=== PATIENT | female | born 1930 | race Caucasian/White ===

== ENCOUNTER 2017-04-12 18:15 | Inpatient (IN) ==
[2017-04-12 20:39] LABS: Basophils % 0.2 % (0.0-0.8); Eosinophils % 0.1 % (0.00-10.9); Hematocrit 24.5 VOL% (35.7-47.0); Hemoglobin 8.2 GM/DL (12.0-16.0); Immature Granulocytes % 1.2 %; Immature Granulocytes Absolute 0.11 #; Lymphocytes # 0.6 10*3/uL (1.4-4.0); Lymphocytes % 6.3 % (21.3-54.2); Mean Corpuscular HGB Conc 33.5 GM/DL (32-36); Mean Corpuscular Hemoglobin 32 PG (27-34); Mean Corpuscular Volume 95.3 FL (87-102); Mean Platelet Volume 10.8 FL (9.6-12.0); Monocytes # 0.5 10*3/uL (0.11-0.8); Monocytes % 5.1 % (1.7-12.7); Neutrophils # 8.1 10*3/uL (1.4-7.4); Neutrophils % 87.1 % (38.7-73.9); Platelet Count 172 T/CUMM (130-400); Red Blood Count 2.57 MC/CUMM (3.8-5.5); Red Cell Distribution Width 13.2 % (9.3-17.3); White Blood Count 9.2 T/CUMM (4-12)
[2017-04-12 20:50] LABS: PT Patient Result 10.1 SECS; Partial Thromboplastin Time 29.2 SECS (0-40)
[2017-04-12 21:06] LABS: Albumin 2.7 G/DL (3.4-5.0); Bilirubin,Total 0.4 MG/DL (0.2-1.0); Calcium 8.6 MG/DL (8.5-10.1); Magnesium 2.4 MG/DL (1.8-2.4); Osmolality,Calculated 286.1 MOS/KG (273-304); Potassium 4.1 MMOL/L (3.5-5.1)
[2017-04-12] MEDS ORDERED: ONDANSETRON 4 MG/2 ML VIAL IV STA (22:03)
[2017-04-12] MEDS ORDERED: FUROSEMIDE 100 MG/10 ML VIAL IV STA (22:03)
[2017-04-12] MEDS ORDERED: cefTRIAXone 1,000 MG in SODIUM CHLORIDE 0.9% 100 ML IV STA (22:03)
[2017-04-12] MEDS ORDERED: ALBUTEROL 2.5 MG/3 ML NEB RESP TX ONE (22:13)
[2017-04-12] MEDS ORDERED: ALBUTEROL 2.5 MG/3 ML NEB RESP TX SCH (22:30)
[2017-04-12] MEDS ORDERED: cefTRIAXone 1,000 MG VIAL ONE (22:31)
[2017-04-12] MEDS ORDERED: FUROSEMIDE 100 MG/10 ML VIAL ONE ×2 (22:31→22:33)
[2017-04-12] MEDS ORDERED: ONDANSETRON 4 MG/2 ML VIAL ONE (22:31)
[2017-04-12 22:58] LABS: Lactic Acid 1.8 MMOL/L (0.4-2.0)
[2017-04-12 22:59] LABS: Magnesium 2.6 MG/DL (1.8-2.4); Troponin I Only < 0.015 NG/ML (0.00-0.045)
[2017-04-12 23:14] LABS: Apearance,Urine CLOUDY (Clear); Bacteria,Urine Moderate /HPF (Few); Bilirubin,Urine Negative (Negative); Blood, Urine Small mg/dL (Negative); Glucose,Urine (UA) Negative (Negative); Ketones,Urine Negative (Negative); Mucus,Urine Occasional /LPF (Occasional); Nitrite,Urine Negative (Negative); Protein,Urine 30 MG/DL; RBC,Urine 6 /HPF (0-4); Squamous Epithelial Cell,Urine Occasional /HPF (0-10); Urine Color Yellow (Yellow); Urine Specific Gravity 1.011 (1.001-1.035); Urine Urobilinogen < 2.0 EU/DL (0.2-1.0); WBC,Urine 131 /HPF (0-6)
[2017-04-13] MEDS ORDERED: DEXTROSE 50% 25 GM/50 ML VIAL IV PRN (01:17)
[2017-04-13] MEDS ORDERED: GLUCAGON 1 MG VIAL IM PRN (01:17)
[2017-04-13] MEDS ORDERED: ALBUTEROL/IPRATROPIUM 3 ML NEB RESP TX PRN ×2 (01:17)
[2017-04-13] MEDS ORDERED: cefTRIAXone 1,000 MG in SYRINGE 1 EACH IV SCH (01:17)
[2017-04-13] MEDS ORDERED: ONDANSETRON 4 MG/2 ML VIAL IV PRN (01:17)
[2017-04-13] MEDS ORDERED: INFLUENZA VIRUS VACCINE 0.5 ML SYRINGE IM ONE (02:02)
[2017-04-13] MEDS: SODIUM CHLORIDE 0.9% 1,000 ML IV SCH ×3 (02:12→23:49)
[2017-04-13] MEDS: ENOXAPARIN 30 MG/0.3 ML SYRINGE SUBCUT SCH (02:12)
[2017-04-13] MEDS: ACETAMINOPHEN 325 MG TABLET PO PRN ×2 (02:14→11:53)
[2017-04-13] MEDS: MORPHINE 2 MG/1 ML SYRINGE IV PRN (04:02)
[2017-04-13 07:29] LABS: Basophils % 0.2 % (0.0-0.8); Hematocrit 21.5 VOL% (35.7-47.0); Hemoglobin 7.1 GM/DL (12.0-16.0); Immature Granulocytes % 0.6 %; Immature Granulocytes Absolute 0.06 #; Lymphocytes # 0.8 10*3/uL (1.4-4.0); Lymphocytes % 7.9 % (21.3-54.2); Mean Corpuscular Hemoglobin 32 PG (27-34); Mean Corpuscular Volume 95.6 FL (87-102); Mean Platelet Volume 11.2 FL (9.6-12.0); Monocytes # 0.7 10*3/uL (0.11-0.8); Monocytes % 7.8 % (1.7-12.7); Neutrophils # 7.9 10*3/uL (1.4-7.4); Neutrophils % 83.5 % (38.7-73.9); Platelet Count 168 T/CUMM (130-400); Red Blood Count 2.25 MC/CUMM (3.8-5.5); Red Cell Distribution Width 13.3 % (9.3-17.3); White Blood Count 9.5 T/CUMM (4-12)
[2017-04-13 08:00] LABS: Albumin 2.4 G/DL (3.4-5.0); Bilirubin,Total 0.4 MG/DL (0.2-1.0); Magnesium 2.3 MG/DL (1.8-2.4); Osmolality,Calculated 288.2 MOS/KG (273-304); Potassium 3.8 MMOL/L (3.5-5.1); Risk Ratio 6.18; Total Protein 4.8 G/DL (6.4-8.3); VLDL CHOLESTEROL 31.4 MG/DL
[2017-04-13] MEDS: hydroCHLOROthiazide 12.5 MG CAPSULE PO SCH (08:44)
[2017-04-13] MEDS: DOCUSATE SODIUM 100 MG CAPSULE PO SCH ×2 (08:44→21:26)
[2017-04-13] MEDS: PANTOPRAZOLE 40 MG TABLET PO SCH (08:45)
[2017-04-13] MEDS: MAGNESIUM OXIDE 400 MG TABLET PO SCH (08:45)
[2017-04-13] MEDS: INSULIN REGULAR 100 UNIT/ML SUBCUT SCH ×4 (08:45→23:51)
[2017-04-13] MEDS: POTASSIUM CHLORIDE 10 MEQ TABLET PO SCH ×2 (08:45→17:46)
[2017-04-13] MEDS ORDERED: PANTOPRAZOLE 40 MG VIAL IV SCH (09:00)
[2017-04-13] MEDS: methylPREDNISolone SOD SUC 40 MG/1 ML VIAL IV SCH ×2 (13:45→21:26)
[2017-04-13] MEDS: ALBUTEROL/IPRATROPIUM 3 ML NEB RESP TX SCH ×3 (15:01→23:17)
[2017-04-13] MEDS ORDERED: SODIUM CHLORIDE 0.9% 1,000 ML IV PRN (18:41)
[2017-04-13] MEDS ORDERED: GABAPENTIN 300 MG CAPSULE PO SCH (21:00)
[2017-04-13] MEDS: SIMVASTATIN 20 MG TABLET PO SCH (21:25)
[2017-04-13] MEDS: FERROUS SULFATE 325 MG TABLET PO SCH (21:25)
[2017-04-13] MEDS: cefTRIAXone 1,000 MG in SYRINGE 1 EACH IV SCH (21:26)
[2017-04-14] MEDS: ALBUTEROL/IPRATROPIUM 3 ML NEB RESP TX SCH ×6 (03:27→23:44)
[2017-04-14] MEDS: ENOXAPARIN 30 MG/0.3 ML SYRINGE SUBCUT SCH (05:24)
[2017-04-14] MEDS: methylPREDNISolone SOD SUC 40 MG/1 ML VIAL IV SCH ×3 (06:41→20:09)
[2017-04-14] MEDS: SODIUM CHLORIDE 0.9% 1,000 ML IV SCH ×3 (06:42→23:00)
[2017-04-14 08:03] LABS: Basophils % 0.2 % (0.0-0.8); Hematocrit 29.3 VOL% (35.7-47.0); Immature Granulocytes % 0.3 %; Immature Granulocytes Absolute 0.02 #; Lymphocytes # 0.4 10*3/uL (1.4-4.0); Lymphocytes % 6.5 % (21.3-54.2); Mean Corpuscular HGB Conc 34.1 GM/DL (32-36); Mean Corpuscular Hemoglobin 31 PG (27-34); Mean Corpuscular Volume 91.3 FL (87-102); Monocytes # 0.3 10*3/uL (0.11-0.8); Monocytes % 4.6 % (1.7-12.7); Neutrophils # 5.6 10*3/uL (1.4-7.4); Neutrophils % 88.4 % (38.7-73.9); Platelet Count 177 T/CUMM (130-400); Red Cell Distribution Width 14.7 % (9.3-17.3)
[2017-04-14 08:18] LABS: Red Blood Count 3.21 MC/CUMM (3.8-5.5); White Blood Count 6.3 T/CUMM (4-12)
[2017-04-14 08:41] LABS: Calcium 8.1 MG/DL (8.5-10.1); Potassium 4.1 MMOL/L (3.5-5.1)
[2017-04-14] MEDS: INSULIN REGULAR 100 UNIT/ML SUBCUT SCH ×4 (08:59→21:24)
[2017-04-14] MEDS: PANTOPRAZOLE 40 MG TABLET PO SCH (09:00)
[2017-04-14] MEDS: FERROUS SULFATE 325 MG TABLET PO SCH ×2 (09:00→20:10)
[2017-04-14] MEDS: FUROSEMIDE 20 MG TABLET PO SCH (09:00)
[2017-04-14] MEDS: hydroCHLOROthiazide 12.5 MG CAPSULE PO SCH (09:00)
[2017-04-14] MEDS: MAGNESIUM OXIDE 400 MG TABLET PO SCH (09:00)
[2017-04-14] MEDS ORDERED: FERROUS SULFATE 325 MG TABLET PO SCH (09:00)
[2017-04-14] MEDS: MULTIVITAMIN (CENTRUM) TABLET PO SCH (09:00)
[2017-04-14] MEDS: POTASSIUM CHLORIDE 10 MEQ TABLET PO SCH ×3 (09:00→16:08)
[2017-04-14] MEDS: DOCUSATE SODIUM 100 MG CAPSULE PO SCH ×2 (09:00→20:10)
[2017-04-14] MEDS: POLYETHYLENE GLYCOL POWDER 17 GM PACK PO SCH (11:09)
[2017-04-14] MEDS: LORATADINE 10 MG TABLET PO SCH (15:20)
[2017-04-14] MEDS: SIMVASTATIN 20 MG TABLET PO SCH (20:10)
[2017-04-14] MEDS: cefTRIAXone 1,000 MG in SYRINGE 1 EACH IV SCH (22:37)
[2017-04-15] MEDS: ENOXAPARIN 30 MG/0.3 ML SYRINGE SUBCUT SCH (01:28)
[2017-04-15] MEDS: ACETAMINOPHEN 325 MG TABLET PO PRN ×2 (01:42→16:34)
[2017-04-15] MEDS: ALBUTEROL/IPRATROPIUM 3 ML NEB RESP TX SCH ×5 (03:38→19:38)
[2017-04-15] MEDS: methylPREDNISolone SOD SUC 40 MG/1 ML VIAL IV SCH ×3 (05:15→21:44)
[2017-04-15 06:24] LABS: Hematocrit 29.3 VOL% (35.7-47.0); Hemoglobin 10.1 GM/DL (12.0-16.0); Immature Granulocytes % 0.8 %; Immature Granulocytes Absolute 0.06 #; Lymphocytes # 0.7 10*3/uL (1.4-4.0); Lymphocytes % 9.3 % (21.3-54.2); Mean Corpuscular HGB Conc 34.5 GM/DL (32-36); Mean Corpuscular Hemoglobin 31 PG (27-34); Mean Corpuscular Volume 90.2 FL (87-102); Mean Platelet Volume 10.9 FL (9.6-12.0); Monocytes # 0.3 10*3/uL (0.11-0.8); Monocytes % 3.7 % (1.7-12.7); Neutrophils # 6.4 10*3/uL (1.4-7.4); Neutrophils % 86.2 % (38.7-73.9); Platelet Count 215 T/CUMM (130-400); Red Blood Count 3.25 MC/CUMM (3.8-5.5); Red Cell Distribution Width 14.6 % (9.3-17.3); White Blood Count 7.4 T/CUMM (4-12)
[2017-04-15 06:50] LABS: Calcium 8.3 MG/DL (8.5-10.1); Osmolality,Calculated 295.7 MOS/KG (273-304); Potassium 4.2 MMOL/L (3.5-5.1)
[2017-04-15] MEDS: hydroCHLOROthiazide 12.5 MG CAPSULE PO SCH (09:22)
[2017-04-15] MEDS: DOCUSATE SODIUM 100 MG CAPSULE PO SCH ×2 (09:22→21:44)
[2017-04-15] MEDS: FUROSEMIDE 20 MG TABLET PO SCH (09:22)
[2017-04-15] MEDS: MULTIVITAMIN (CENTRUM) TABLET PO SCH (09:22)
[2017-04-15] MEDS: FERROUS SULFATE 325 MG TABLET PO SCH ×2 (09:22→21:44)
[2017-04-15] MEDS: POTASSIUM CHLORIDE 10 MEQ TABLET PO SCH ×3 (09:23→16:33)
[2017-04-15] MEDS: INSULIN REGULAR 100 UNIT/ML SUBCUT SCH ×4 (09:23→21:44)
[2017-04-15] MEDS: POLYETHYLENE GLYCOL POWDER 17 GM PACK PO SCH (09:23)
[2017-04-15] MEDS: PANTOPRAZOLE 40 MG TABLET PO SCH (09:23)
[2017-04-15] MEDS: MAGNESIUM OXIDE 400 MG TABLET PO SCH (09:23)
[2017-04-15] MEDS: LORATADINE 10 MG TABLET PO SCH (09:23)
[2017-04-15] MEDS: SODIUM CHLORIDE 0.9% 1,000 ML IV SCH ×2 (10:32→21:45)
[2017-04-15] MEDS: SKIN HEALING OINT (AQUAPHOR) 50 GM TUBE TOP SCH (15:32)
[2017-04-15] MEDS: MORPHINE 2 MG/1 ML SYRINGE IV PRN (18:50)
[2017-04-15] MEDS: SIMVASTATIN 20 MG TABLET PO SCH (21:44)
[2017-04-15] MEDS: cefTRIAXone 1,000 MG in SYRINGE 1 EACH IV SCH (21:46)
[2017-04-16] MEDS: ALBUTEROL/IPRATROPIUM 3 ML NEB RESP TX SCH ×7 (00:16→23:45)
[2017-04-16] MEDS: ENOXAPARIN 30 MG/0.3 ML SYRINGE SUBCUT SCH (00:28)
[2017-04-16] MEDS: SODIUM CHLORIDE 0.9% 1,000 ML IV SCH ×4 (04:51→23:36)
[2017-04-16] MEDS: methylPREDNISolone SOD SUC 40 MG/1 ML VIAL IV SCH ×3 (05:16→21:09)
[2017-04-16 06:43] LABS: Basophils % 0.2 % (0.0-0.8); Hematocrit 33.7 VOL% (35.7-47.0); Hemoglobin 11.6 GM/DL (12.0-16.0); Immature Granulocytes % 2.8 %; Immature Granulocytes Absolute 0.24 #; Lymphocytes # 1.3 10*3/uL (1.4-4.0); Lymphocytes % 14.7 % (21.3-54.2); Mean Corpuscular HGB Conc 34.4 GM/DL (32-36); Mean Corpuscular Hemoglobin 31 PG (27-34); Mean Corpuscular Volume 90.1 FL (87-102); Mean Platelet Volume 10.2 FL (9.6-12.0); Monocytes # 0.3 10*3/uL (0.11-0.8); Monocytes % 3.8 % (1.7-12.7); Neutrophils # 6.9 10*3/uL (1.4-7.4); Neutrophils % 78.5 % (38.7-73.9); Platelet Count 306 T/CUMM (130-400); Red Blood Count 3.74 MC/CUMM (3.8-5.5); Red Cell Distribution Width 14.3 % (9.3-17.3); White Blood Count 8.7 T/CUMM (4-12)
[2017-04-16 07:01] LABS: Calcium 8.7 MG/DL (8.5-10.1); Osmolality,Calculated 294.4 MOS/KG (273-304); Potassium 4.5 MMOL/L (3.5-5.1)
[2017-04-16] MEDS ORDERED: MAGNESIUM HYDROXIDE SUSP 30 ML UDCUP PO ONE (07:29)
[2017-04-16] MEDS: MULTIVITAMIN (CENTRUM) TABLET PO SCH (08:43)
[2017-04-16] MEDS: PANTOPRAZOLE 40 MG TABLET PO SCH (08:43)
[2017-04-16] MEDS: hydroCHLOROthiazide 12.5 MG CAPSULE PO SCH (08:43)
[2017-04-16] MEDS: FERROUS SULFATE 325 MG TABLET PO SCH ×2 (08:43→21:08)
[2017-04-16] MEDS: FUROSEMIDE 20 MG TABLET PO SCH (08:43)
[2017-04-16] MEDS: MAGNESIUM OXIDE 400 MG TABLET PO SCH (08:43)
[2017-04-16] MEDS: LORATADINE 10 MG TABLET PO SCH (08:44)
[2017-04-16] MEDS: DOCUSATE SODIUM 100 MG CAPSULE PO SCH ×2 (08:44→21:08)
[2017-04-16] MEDS: POTASSIUM CHLORIDE 10 MEQ TABLET PO SCH ×2 (08:44→17:15)
[2017-04-16] MEDS: INSULIN REGULAR 100 UNIT/ML SUBCUT SCH ×4 (08:44→21:09)
[2017-04-16] MEDS: SKIN HEALING OINT (AQUAPHOR) 50 GM TUBE TOP SCH (12:47)
[2017-04-16] MEDS: POLYETHYLENE GLYCOL POWDER 17 GM PACK PO SCH (13:31)
[2017-04-16] MEDS: cefTRIAXone 1,000 MG in SYRINGE 1 EACH IV SCH (21:09)
[2017-04-16] MEDS: SIMVASTATIN 20 MG TABLET PO SCH (21:10)
[2017-04-17] MEDS: SODIUM CHLORIDE 0.9% 1,000 ML IV SCH ×2 (00:22→09:40)
[2017-04-17] MEDS: ENOXAPARIN 30 MG/0.3 ML SYRINGE SUBCUT SCH (02:00)
[2017-04-17] MEDS: ALBUTEROL/IPRATROPIUM 3 ML NEB RESP TX SCH ×5 (03:59→20:45)
[2017-04-17] MEDS: methylPREDNISolone SOD SUC 40 MG/1 ML VIAL IV SCH ×2 (04:43→13:18)
[2017-04-17 05:55] LABS: Basophils % 0.1 % (0.0-0.8); Hematocrit 33.1 VOL% (35.7-47.0); Hemoglobin 11.1 GM/DL (12.0-16.0); Immature Granulocytes % 3.3 %; Immature Granulocytes Absolute 0.29 #; Lymphocytes # 1.7 10*3/uL (1.4-4.0); Lymphocytes % 19.4 % (21.3-54.2); Mean Corpuscular HGB Conc 33.5 GM/DL (32-36); Mean Corpuscular Hemoglobin 31 PG (27-34); Mean Corpuscular Volume 92.2 FL (87-102); Mean Platelet Volume 9.8 FL (9.6-12.0); Monocytes # 0.5 10*3/uL (0.11-0.8); Monocytes % 5.4 % (1.7-12.7); Neutrophils # 6.4 10*3/uL (1.4-7.4); Neutrophils % 71.8 % (38.7-73.9); Platelet Count 288 T/CUMM (130-400); Red Blood Count 3.59 MC/CUMM (3.8-5.5); Red Cell Distribution Width 14.1 % (9.3-17.3); White Blood Count 8.9 T/CUMM (4-12)
[2017-04-17 06:29] LABS: Calcium 8.9 MG/DL (8.5-10.1); Osmolality,Calculated 290.4 MOS/KG (273-304); Potassium 4.5 MMOL/L (3.5-5.1)
[2017-04-17 07:19] LABS: Band Neutrophils 1 % (0-10); Giant Platelets Few; Hypochromasia 1+; Lymphocytes 24 % (20-55); Microcytosis Slight; Ovalocytes Slight; Platelet Estimate Adequate; Segmented Neutrophils 70 % (50-85); Total Cells Counted 100
[2017-04-17] MEDS: LORATADINE 10 MG TABLET PO SCH (09:19)
[2017-04-17] MEDS: MAGNESIUM OXIDE 400 MG TABLET PO SCH (09:19)
[2017-04-17] MEDS: POTASSIUM CHLORIDE 10 MEQ TABLET PO SCH ×2 (09:19→17:14)
[2017-04-17] MEDS: PANTOPRAZOLE 40 MG TABLET PO SCH (09:19)
[2017-04-17] MEDS: FUROSEMIDE 20 MG TABLET PO SCH (09:19)
[2017-04-17] MEDS: FERROUS SULFATE 325 MG TABLET PO SCH ×2 (09:19→22:09)
[2017-04-17] MEDS: MULTIVITAMIN (CENTRUM) TABLET PO SCH (09:20)
[2017-04-17] MEDS: hydroCHLOROthiazide 12.5 MG CAPSULE PO SCH (09:20)
[2017-04-17] MEDS: POLYETHYLENE GLYCOL POWDER 17 GM PACK PO SCH (09:20)
[2017-04-17] MEDS: DOCUSATE SODIUM 100 MG CAPSULE PO SCH ×2 (09:20→22:08)
[2017-04-17] MEDS: INSULIN REGULAR 100 UNIT/ML SUBCUT SCH ×4 (09:20→22:09)
[2017-04-17] MEDS: SKIN HEALING OINT (AQUAPHOR) 50 GM TUBE TOP SCH (09:20)
[2017-04-17] MEDS ORDERED: ALUMINUM/MAGNES/SIMETH MAX STR 30 ML UDCUP PO PRN (13:12)
[2017-04-17] MEDS: SIMVASTATIN 20 MG TABLET PO SCH (22:09)
[2017-04-18] MEDS: ALBUTEROL/IPRATROPIUM 3 ML NEB RESP TX SCH ×4 (01:18→12:16)
[2017-04-18] MEDS: ACETAMINOPHEN 325 MG TABLET PO PRN ×2 (01:31→08:24)
[2017-04-18] MEDS: ENOXAPARIN 30 MG/0.3 ML SYRINGE SUBCUT SCH (02:32)
[2017-04-18] MEDS ORDERED: LEVOFLOXACIN 750 MG TABLET PO ONE (07:00)
[2017-04-18 07:17] LABS: Calcium 8.8 MG/DL (8.5-10.1); Osmolality,Calculated 286.3 MOS/KG (273-304); Potassium 3.8 MMOL/L (3.5-5.1)
[2017-04-18 07:22] LABS: % Iron Saturation 10.2 % (18-50); Ferritin 103.9 ng/ml (8-252)
[2017-04-18] MEDS: INSULIN REGULAR 100 UNIT/ML SUBCUT SCH ×2 (08:12→12:18)
[2017-04-18] MEDS: hydroCHLOROthiazide 12.5 MG CAPSULE PO SCH (08:23)
[2017-04-18] MEDS: POTASSIUM CHLORIDE 10 MEQ TABLET PO SCH (08:23)
[2017-04-18] MEDS: MULTIVITAMIN (CENTRUM) TABLET PO SCH (08:23)
[2017-04-18] MEDS: FERROUS SULFATE 325 MG TABLET PO SCH (08:23)
[2017-04-18] MEDS: MAGNESIUM OXIDE 400 MG TABLET PO SCH (08:24)
[2017-04-18] MEDS: DOCUSATE SODIUM 100 MG CAPSULE PO SCH (08:24)
[2017-04-18] MEDS: LORATADINE 10 MG TABLET PO SCH (08:24)
[2017-04-18] MEDS: PANTOPRAZOLE 40 MG TABLET PO SCH (08:24)
[2017-04-18] MEDS: FUROSEMIDE 20 MG TABLET PO SCH (08:24)
[2017-04-18] MEDS: POLYETHYLENE GLYCOL POWDER 17 GM PACK PO SCH (08:25)
[2017-04-18] MEDS: SKIN HEALING OINT (AQUAPHOR) 50 GM TUBE TOP SCH (08:26)
[2017-04-18] MEDS ORDERED: ONDANSETRON 4 MG TABLET PO PRN (09:20)
[2017-04-18 12:13] VITALS: BP 150/82
== END 2017-04-18 14:10 | disposition swing bed (61) | DRG 872 ==
LOC: N.ED 18:15 → N.EDINP 23:50 → N.5E 04-13 00:49
PROVIDERS: ADMIT Internal Medicine; ATTEND Internal Medicine

== ENCOUNTER 2020-01-07 13:45 | Inpatient (IN) ==
[2020-01-07 15:16] LABS: Basophils # 0.1 10*3/uL (0.0-0.2); Eosinophils # 0.2 10*3/uL (0.0-0.87); Eosinophils % 3.5 % (0.00-10.9); Hematocrit 34.2 VOL% (35.7-47.0); Hemoglobin 10.9 GM/DL (12.0-16.0); Immature Granulocytes % 0.5 %; Immature Granulocytes Absolute 0.03 #; Lymphocytes # 0.7 10*3/uL (1.4-4.0); Mean Corpuscular HGB Conc 31.9 GM/DL (32-36); Mean Corpuscular Volume 89.1 FL (87-102); Mean Platelet Volume 10.3 FL (9.6-12.0); Monocytes % 5.7 % (1.7-12.7); Neutrophils % 78.3 % (38.7-73.9); Platelet Count 230 T/CUMM (130-400); Red Blood Count 3.84 MC/CUMM (3.8-5.5); Red Cell Distribution Width 13.7 % (9.3-17.3)
[2020-01-07] MEDS: FUROSEMIDE 40 MG/4 ML VIAL IV STA ×2 (15:20→17:40)
[2020-01-07 15:41] LABS: Alanine Aminotransferase 19 U/L (13-56); Albumin 3.5 G/DL (3.4-5.0); Alkaline Phosphatase 82 U/L (45-117); Aspartate Amino Transferase 18 U/L (0-37); Blood Urea Nitrogen 16 MG/DL (7-18); Calcium 8.6 MG/DL (8.5-10.1); Estimated Glom Filtration Rate 53 ML/MIN; Ferritin 24.4 ng/ml (8-252); Glucose 130 MG/DL (74-106); Osmolality,Calculated 264.7 MOS/KG (273-304); Total Protein 7.2 G/DL (6.4-8.3)
[2020-01-07] MEDS: hydrALAZINE 20 MG/1 ML VIAL IV STA ×2 (16:34→17:40)
[2020-01-07] MEDS ORDERED: SODIUM CHLORIDE 0.9% 1,000 ML IV SCH (17:37)
[2020-01-07] MEDS ORDERED: ACETAMINOPHEN 325 MG TABLET PO PRN (17:37)
[2020-01-07] MEDS ORDERED: ONDANSETRON 4 MG/2 ML VIAL IV PRN (17:37)
[2020-01-07] MEDS: SODIUM CHLORIDE 0.9% 1,000 ML IV SCH (18:09)
[2020-01-07] MEDS ORDERED: GLUCAGON 1 MG VIAL IM PRN (18:58)
[2020-01-07] MEDS ORDERED: DEXTROSE 50% 25 GM/50 ML VIAL IV PRN (18:58)
[2020-01-07] MEDS: DOCUSATE SODIUM 100 MG CAPSULE PO SCH (21:29)
[2020-01-07] MEDS ORDERED: ALBUTEROL/IPRATROPIUM 3 ML NEB RESP TX ONE (23:18)
[2020-01-08] MEDS: AZITHROMYCIN INJ 250 MG in SODIUM CHLORIDE 0.9% 250 ML IV SCH ×2 (00:37→23:55)
[2020-01-08] MEDS: ALBUTEROL/IPRATROPIUM 3 ML NEB RESP TX SCH ×4 (00:46→20:35)
[2020-01-08] MEDS: BENZONATATE 100 MG CAPSULE PO SCH ×4 (01:30→21:11)
[2020-01-08] MEDS: LORATADINE 10 MG TABLET PO SCH ×3 (01:30→21:11)
[2020-01-08] MEDS: methylPREDNISolone SOD SUC 40 MG/1 ML VIAL IV SCH ×3 (01:30→21:18)
[2020-01-08] MEDS: BUDESONIDE 0.25 MG/2 ML NEB RESP TX SCH ×3 (02:09→20:35)
[2020-01-08 06:12] LABS: Osmolality,Calculated 268.5 MOS/KG (273-304)
[2020-01-08] MEDS: SODIUM CHLORIDE 0.9% 1,000 ML IV SCH ×3 (06:37→21:10)
[2020-01-08] MEDS ORDERED: BENZONATATE 100 MG CAPSULE PO SCH (09:00)
[2020-01-08] MEDS ORDERED: LORATADINE 10 MG TABLET PO SCH (09:00)
[2020-01-08] MEDS: INSULIN REGULAR 100 UNIT/ML SUBCUT SCH ×2 (09:03→16:35)
[2020-01-08] MEDS: MAGNESIUM OXIDE 400 MG TABLET PO SCH (09:05)
[2020-01-08] MEDS: ASPIRIN EC 81 MG TABLET PO SCH (09:05)
[2020-01-08] MEDS: FERROUS SULFATE 325 MG TABLET PO SCH (09:05)
[2020-01-08] MEDS: OLMESARTAN 20 MG TABLET PO SCH (09:05)
[2020-01-08] MEDS: DOCUSATE SODIUM 100 MG CAPSULE PO SCH ×2 (09:05→21:10)
[2020-01-08] MEDS: FUROSEMIDE 40 MG/4 ML VIAL IV SCH (09:06)
[2020-01-08] MEDS: FAMOTIDINE 20 MG TABLET PO SCH ×2 (09:06→21:11)
[2020-01-08] MEDS: POTASSIUM CHLORIDE 20 MEQ TABLET PO SCH (09:06)
[2020-01-08] MEDS: cefTRIAXone 500 MG in SYRINGE 1 EACH IV SCH (09:08)
[2020-01-08] MEDS ORDERED: FAMOTIDINE 20 MG TABLET PO SCH (21:00)
[2020-01-08] MEDS: METOPROLOL TARTRATE 25 MG TABLET PO SCH (23:54)
[2020-01-09] MEDS: ALBUTEROL/IPRATROPIUM 3 ML NEB RESP TX SCH ×4 (01:07→19:56)
[2020-01-09 04:04] LABS: Hematocrit 33.5 VOL% (35.7-47.0); Hemoglobin 10.3 GM/DL (12.0-16.0); Immature Granulocytes % 0.4 %; Immature Granulocytes Absolute 0.03 #; Lymphocytes # 0.6 10*3/uL (1.4-4.0); Lymphocytes % 8.2 % (21.3-54.2); Mean Corpuscular HGB Conc 30.7 GM/DL (32-36); Mean Corpuscular Volume 90.3 FL (87-102); Mean Platelet Volume 11.3 FL (9.6-12.0); Monocytes % 3.8 % (1.7-12.7); Neutrophils % 87.6 % (38.7-73.9); Platelet Count 188 T/CUMM (130-400); Red Blood Count 3.71 MC/CUMM (3.8-5.5); Red Cell Distribution Width 14.2 % (9.3-17.3); White Blood Count 7.4 T/CUMM (4-12)
[2020-01-09 04:34] LABS: Calcium 9.1 MG/DL (8.5-10.1); Osmolality,Calculated 274.1 MOS/KG (273-304)
[2020-01-09] MEDS: BUDESONIDE 0.25 MG/2 ML NEB RESP TX SCH ×2 (07:18→19:56)
[2020-01-09] MEDS ORDERED: MEPERIDINE 50 MG/1 ML VIAL IM ONE (07:40)
[2020-01-09] MEDS ORDERED: PROMETHAZINE 25 MG/1 ML VIAL IM ONE (07:40)
[2020-01-09] MEDS ORDERED: LIDOCAINE 1% 20 ML VIAL MISC INJ ONE (08:15)
[2020-01-09] MEDS ORDERED: LIDOCAINE 2% VISCOUS 100 ML BOTTLE SWISH/SPIT ONE (08:15)
[2020-01-09] MEDS ORDERED: LIDOCAINE 2% 20 ML VIAL RESP TX ONE (08:15)
[2020-01-09] MEDS ORDERED: MIDAZOLAM 2 MG/2 ML VIAL IV ONE (08:15)
[2020-01-09] MEDS: cefTRIAXone 500 MG in SYRINGE 1 EACH IV SCH (08:27)
[2020-01-09] MEDS: methylPREDNISolone SOD SUC 40 MG/1 ML VIAL IV SCH ×3 (08:31→17:36)
[2020-01-09] MEDS: SODIUM CHLORIDE 0.9% 1,000 ML IV SCH ×3 (08:56→23:36)
[2020-01-09] MEDS: INSULIN REGULAR 100 UNIT/ML SUBCUT SCH ×2 (10:03→17:37)
[2020-01-09] MEDS ORDERED: MIDAZOLAM 2 MG/2 ML VIAL ONE (10:11)
[2020-01-09] MEDS: MAGNESIUM OXIDE 400 MG TABLET PO SCH (12:43)
[2020-01-09] MEDS: BENZONATATE 100 MG CAPSULE PO SCH ×3 (12:43→22:17)
[2020-01-09] MEDS: OLMESARTAN 20 MG TABLET PO SCH (12:43)
[2020-01-09] MEDS: FAMOTIDINE 20 MG TABLET PO SCH ×2 (12:43→22:18)
[2020-01-09] MEDS: ASPIRIN EC 81 MG TABLET PO SCH (12:44)
[2020-01-09] MEDS: POTASSIUM CHLORIDE 20 MEQ TABLET PO SCH (12:44)
[2020-01-09] MEDS: DOCUSATE SODIUM 100 MG CAPSULE PO SCH ×2 (12:44→22:20)
[2020-01-09] MEDS: METOPROLOL TARTRATE 25 MG TABLET PO SCH ×2 (12:44→22:19)
[2020-01-09] MEDS: FERROUS SULFATE 325 MG TABLET PO SCH (12:44)
[2020-01-09] MEDS: LORATADINE 10 MG TABLET PO SCH ×2 (12:44→22:18)
[2020-01-09] MEDS: FUROSEMIDE 40 MG/4 ML VIAL IV SCH (12:45)
[2020-01-09] MEDS: AZITHROMYCIN INJ 250 MG in SODIUM CHLORIDE 0.9% 250 ML IV SCH (23:37)
[2020-01-10] MEDS: ALBUTEROL/IPRATROPIUM 3 ML NEB RESP TX SCH ×3 (00:23→13:50)
[2020-01-10] MEDS: methylPREDNISolone SOD SUC 40 MG/1 ML VIAL IV SCH ×2 (03:18→11:55)
[2020-01-10 04:15] LABS: Basophils % 0.1 % (0.0-0.8); Hematocrit 29.8 VOL% (35.7-47.0); Hemoglobin 9.4 GM/DL (12.0-16.0); Immature Granulocytes Absolute 0.09 #; Lymphocytes # 0.8 10*3/uL (1.4-4.0); Lymphocytes % 8.3 % (21.3-54.2); Mean Corpuscular HGB Conc 31.5 GM/DL (32-36); Mean Corpuscular Volume 90.3 FL (87-102); Mean Platelet Volume 10.4 FL (9.6-12.0); Monocytes % 4.5 % (1.7-12.7); Neutrophils % 86.1 % (38.7-73.9); Platelet Count 194 T/CUMM (130-400); Red Cell Distribution Width 14.3 % (9.3-17.3); White Blood Count 9.3 T/CUMM (4-12)
[2020-01-10 04:32] LABS: Calcium 8.7 MG/DL (8.5-10.1); Osmolality,Calculated 281.5 MOS/KG (273-304)
[2020-01-10] MEDS: BUDESONIDE 0.25 MG/2 ML NEB RESP TX SCH (07:48)
[2020-01-10] MEDS: MAGNESIUM OXIDE 400 MG TABLET PO SCH (08:25)
[2020-01-10] MEDS: LORATADINE 10 MG TABLET PO SCH (08:25)
[2020-01-10] MEDS: OLMESARTAN 20 MG TABLET PO SCH (08:25)
[2020-01-10] MEDS: FAMOTIDINE 20 MG TABLET PO SCH (08:25)
[2020-01-10] MEDS: FERROUS SULFATE 325 MG TABLET PO SCH (08:26)
[2020-01-10] MEDS: ASPIRIN EC 81 MG TABLET PO SCH (08:26)
[2020-01-10] MEDS: BENZONATATE 100 MG CAPSULE PO SCH ×2 (08:26→15:27)
[2020-01-10] MEDS: DOCUSATE SODIUM 100 MG CAPSULE PO SCH (08:26)
[2020-01-10] MEDS: INSULIN REGULAR 100 UNIT/ML SUBCUT SCH ×2 (08:27→17:07)
[2020-01-10] MEDS: POTASSIUM CHLORIDE 20 MEQ TABLET PO SCH (08:27)
[2020-01-10] MEDS ORDERED: METOPROLOL TARTRATE 25 MG TABLET PO SCH (09:00)
[2020-01-10] MEDS: FUROSEMIDE 40 MG/4 ML VIAL IV SCH (10:09)
[2020-01-10] MEDS: cefTRIAXone 500 MG in SYRINGE 1 EACH IV SCH (10:16)
[2020-01-10] MEDS: SODIUM CHLORIDE 0.9% 1,000 ML IV SCH (15:28)
[2020-01-10 17:10] VITALS: BP 131/91
[2020-01-10] MEDS ORDERED: GABAPENTIN 300 MG CAPSULE PO SCH (21:00)
== END 2020-01-10 17:26 | disposition home health service (06) | DRG 202 ==
LOC: N.ED 13:45 → N.EDINP 16:01 → N.TELEN 16:33
PROVIDERS: ADMIT Internal Medicine; ATTEND Internal Medicine

== ENCOUNTER 2020-07-20 21:41 | Observation (INO) ==
[2020-07-20] MEDS ORDERED: FUROSEMIDE 40 MG/4 ML VIAL IV STA (22:34)
[2020-07-20] MEDS ORDERED: ONDANSETRON 4 MG/2 ML VIAL IV STA (22:34)
[2020-07-20] MEDS ORDERED: ALBUTEROL/IPRATROPIUM 3 ML NEB RESP TX STA (22:34)
[2020-07-20 22:43] LABS: Basophils # 0.1 10*3/uL (0.0-0.2); Basophils % 1.1 % (0.0-0.8); Eosinophils % 0.9 % (0.00-10.9); Hematocrit 27.3 VOL% (35.7-47.0); Hemoglobin 8.6 GM/DL (12.0-16.0); Immature Granulocytes % 0.4 %; Immature Granulocytes Absolute 0.02 #; Lymphocytes % 21.6 % (21.3-54.2); Mean Corpuscular HGB Conc 31.5 GM/DL (32-36); Mean Platelet Volume 10.4 FL (9.6-12.0); Monocytes % 8.4 % (1.7-12.7); Neutrophils % 67.6 % (38.7-73.9); Platelet Count 213 T/CUMM (130-400); Red Cell Distribution Width 13.6 % (9.3-17.3); White Blood Count 4.5 T/CUMM (4-12)
[2020-07-20 22:53] LABS: PT Patient Result 10.9 SECS (9.8-11.9)
[2020-07-20 23:04] LABS: Alanine Aminotransferase 15 U/L (13-56); Albumin 3.2 G/DL (3.4-5.0); Alkaline Phosphatase 81 U/L (45-117); Amylase 63 U/L (25-115); Aspartate Amino Transferase 15 U/L (0-37); Bilirubin,Total < 0.39 MG/DL (0.2-1.0); Blood Urea Nitrogen 41 MG/DL (7-18); Calcium 8.6 MG/DL (8.5-10.1); Carbon Dioxide 26 MMOL/L (21-32); Estimated Glom Filtration Rate 38 ML/MIN; Glucose 136 MG/DL (74-106); Osmolality,Calculated 288.5 MOS/KG (273-304); Potassium 5.2 MMOL/L (3.5-5.1); Sodium 139 MMOL/L (136-145); Total Protein 5.9 G/DL (6.4-8.2)
[2020-07-20 23:27] LABS: Bacteria,Urine Occasional /HPF (Few); Bilirubin,Urine Negative (Negative); Blood, Urine Negative (Negative); Glucose,Urine (UA) Negative (Negative); Ketones,Urine Negative (Negative); Mucus,Urine Occasional /LPF (Occasional); Nitrite,Urine Negative (Negative); Protein,Urine Negative; RBC,Urine 2 /HPF (0-4); Squamous Epithelial Cell,Urine Occasional /HPF (0-10); Urine Appearance CLEAR (Clear); Urine Color Yellow (Yellow); Urine Urobilinogen < 2.0 EU/DL (0.2-1.0); WBC,Urine 23 /HPF (0-6)
[2020-07-21] MEDS ORDERED: GLUCAGON 1 MG VIAL IM PRN (01:06)
[2020-07-21] MEDS ORDERED: DEXTROSE 50% 25 GM/50 ML VIAL IV PRN (01:06)
[2020-07-21] MEDS ORDERED: ONDANSETRON 4 MG/2 ML VIAL IV PRN (01:06)
[2020-07-21] MEDS: ACETAMINOPHEN 325 MG TABLET PO PRN (01:34)
[2020-07-21] MEDS: INSULIN REGULAR 100 UNIT/ML SUBCUT SCH ×5 (03:44→23:51)
[2020-07-21] MEDS: ALBUTEROL/IPRATROPIUM 3 ML NEB RESP TX SCH ×5 (03:44→19:21)
[2020-07-21] MEDS: SODIUM CHLORIDE 0.9% 1,000 ML IV SCH ×2 (04:06→23:42)
[2020-07-21 04:14] LABS: Basophils % 0.8 % (0.0-0.8); Eosinophils # 0.1 10*3/uL (0.0-0.87); Eosinophils % 1.4 % (0.00-10.9); Hematocrit 24.9 VOL% (35.7-47.0); Hemoglobin 7.8 GM/DL (12.0-16.0); Immature Granulocytes % 0.3 %; Immature Granulocytes Absolute 0.01 #; Lymphocytes # 1.2 10*3/uL (1.4-4.0); Lymphocytes % 33.9 % (21.3-54.2); Mean Corpuscular HGB Conc 31.3 GM/DL (32-36); Mean Corpuscular Volume 91.2 FL (87-102); Mean Platelet Volume 10.1 FL (9.6-12.0); Monocytes % 8.2 % (1.7-12.7); Neutrophils % 55.4 % (38.7-73.9); Platelet Count 187 T/CUMM (130-400); Red Blood Count 2.73 MC/CUMM (3.8-5.5); Red Cell Distribution Width 13.5 % (9.3-17.3); White Blood Count 3.7 T/CUMM (4-12)
[2020-07-21 04:40] LABS: Albumin 2.9 G/DL (3.4-5.0); Bilirubin,Total 0.7 MG/DL (0.2-1.0); Calcium 8.6 MG/DL (8.5-10.1); Osmolality,Calculated 288.7 MOS/KG (273-304); Potassium 4.9 MMOL/L (3.5-5.1); Total Protein 5.6 G/DL (6.4-8.2)
[2020-07-21] MEDS: PANTOPRAZOLE 40 MG TABLET PO SCH (10:05)
[2020-07-21] MEDS: DOCUSATE SODIUM 100 MG CAPSULE PO SCH ×2 (10:05→21:42)
[2020-07-21] MEDS ORDERED: SKIN HEALING OINT (AQUAPHOR) 50 GM TUBE TOP PRN (18:17)
[2020-07-21] MEDS: AZITHROMYCIN INJ 500 MG in SODIUM CHLORIDE 0.9% 250 ML IV SCH (18:57)
[2020-07-21] MEDS: ALBUMIN 25% 25 GM in PREMIX 1 EACH IV SCH (18:57)
[2020-07-21] MEDS ORDERED: BUDESONIDE 0.5 MG/2 ML NEB RESP TX SCH (19:00)
[2020-07-21] MEDS: BUDESONIDE 0.25 MG/2 ML NEB RESP TX SCH (19:21)
[2020-07-21] MEDS: ARFORMOTEROL 15 MCG/2 ML NEB RESP TX SCH (19:21)
[2020-07-21] MEDS: GABAPENTIN 300 MG CAPSULE PO SCH (21:42)
[2020-07-21] MEDS: methylPREDNISolone SOD SUC 40 MG/1 ML VIAL IV SCH (21:43)
[2020-07-22] MEDS: SODIUM CHLORIDE 0.9% 1,000 ML IV SCH (00:06)
[2020-07-22] MEDS: ALBUTEROL/IPRATROPIUM 3 ML NEB RESP TX SCH ×4 (00:16→19:04)
[2020-07-22] MEDS: ALBUMIN 25% 25 GM in PREMIX 1 EACH IV SCH ×3 (02:30→17:51)
[2020-07-22] MEDS: methylPREDNISolone SOD SUC 40 MG/1 ML VIAL IV SCH ×3 (04:18→22:16)
[2020-07-22] MEDS: INSULIN REGULAR 100 UNIT/ML SUBCUT SCH ×3 (05:44→18:00)
[2020-07-22] MEDS: BUDESONIDE 0.25 MG/2 ML NEB RESP TX SCH ×2 (08:00→19:04)
[2020-07-22] MEDS: ARFORMOTEROL 15 MCG/2 ML NEB RESP TX SCH ×2 (08:00→19:04)
[2020-07-22] MEDS: DOCUSATE SODIUM 100 MG CAPSULE PO SCH ×2 (08:45→22:16)
[2020-07-22] MEDS: LORATADINE 10 MG TABLET PO SCH (08:45)
[2020-07-22] MEDS: GABAPENTIN 300 MG CAPSULE PO SCH ×3 (08:45→22:16)
[2020-07-22] MEDS: PANTOPRAZOLE 40 MG TABLET PO SCH (08:46)
[2020-07-22] MEDS: CYANOCOBALAMIN 500 MCG TABLET PO SCH (08:46)
[2020-07-22] MEDS ORDERED: FERROUS SULFATE 325 MG TABLET PO SCH (09:00)
[2020-07-22 13:42] LABS: Hematocrit 22.9 VOL% (35.7-47.0); Hemoglobin 7.2 GM/DL (12.0-16.0)
[2020-07-22] MEDS ORDERED: SODIUM CHLORIDE 0.9% 1,000 ML IV PRN (18:52)
[2020-07-22] MEDS: AZITHROMYCIN INJ 500 MG in SODIUM CHLORIDE 0.9% 250 ML IV SCH (19:00)
[2020-07-22] MEDS: FERROUS SULFATE 325 MG TABLET PO SCH (22:16)
[2020-07-22] MEDS: ACETAMINOPHEN 325 MG TABLET PO PRN (22:17)
[2020-07-23] MEDS: ALBUTEROL/IPRATROPIUM 3 ML NEB RESP TX SCH ×4 (00:52→20:45)
[2020-07-23] MEDS: INSULIN REGULAR 100 UNIT/ML SUBCUT SCH ×4 (01:09→18:00)
[2020-07-23] MEDS: ALBUMIN 25% 25 GM in PREMIX 1 EACH IV SCH ×3 (02:12→17:59)
[2020-07-23] MEDS: SODIUM CHLORIDE 0.9% 1,000 ML IV SCH (05:48)
[2020-07-23] MEDS: methylPREDNISolone SOD SUC 40 MG/1 ML VIAL IV SCH ×3 (06:00→20:45)
[2020-07-23 06:09] LABS: Basophils % 0.3 % (0.0-0.8); Immature Granulocytes % 1.9 %; Immature Granulocytes Absolute 0.12 #; Lymphocytes # 0.5 10*3/uL (1.4-4.0); Lymphocytes % 7.2 % (21.3-54.2); Mean Corpuscular HGB Conc 32.3 GM/DL (32-36); Mean Corpuscular Volume 89.1 FL (87-102); Mean Platelet Volume 10.1 FL (9.6-12.0); Monocytes % 1.7 % (1.7-12.7); Neutrophils % 88.9 % (38.7-73.9); Platelet Count 174 T/CUMM (130-400); Red Cell Distribution Width 13.6 % (9.3-17.3); White Blood Count 6.4 T/CUMM (4-12)
[2020-07-23 06:23] LABS: Hematocrit 26.9 VOL% (35.7-47.0); Hemoglobin 8.7 GM/DL (12.0-16.0)
[2020-07-23 06:24] LABS: Red Blood Count 3.02 MC/CUMM (3.8-5.5)
[2020-07-23 06:31] LABS: Albumin 3.8 G/DL (3.4-5.0); Bilirubin,Total 0.4 MG/DL (0.2-1.0); Calcium 8.9 MG/DL (8.5-10.1); Osmolality,Calculated 277.1 MOS/KG (273-304); Potassium 4.4 MMOL/L (3.5-5.1); Total Protein 6.3 G/DL (6.4-8.2)
[2020-07-23] MEDS: BUDESONIDE 0.25 MG/2 ML NEB RESP TX SCH ×2 (07:40→20:45)
[2020-07-23] MEDS: ARFORMOTEROL 15 MCG/2 ML NEB RESP TX SCH ×2 (07:40→20:45)
[2020-07-23] MEDS ORDERED: LACTATED RINGERS 1,000 ML IV SCH (08:00)
[2020-07-23] MEDS: PANTOPRAZOLE 40 MG TABLET PO SCH ×2 (08:53→14:47)
[2020-07-23] MEDS: LORATADINE 10 MG TABLET PO SCH ×2 (08:53→14:46)
[2020-07-23] MEDS: DOCUSATE SODIUM 100 MG CAPSULE PO SCH ×3 (08:53→20:44)
[2020-07-23] MEDS: CYANOCOBALAMIN 500 MCG TABLET PO SCH ×2 (08:53→14:47)
[2020-07-23] MEDS: GABAPENTIN 300 MG CAPSULE PO SCH ×3 (08:53→20:45)
[2020-07-23] MEDS: FERROUS SULFATE 325 MG TABLET PO SCH ×3 (08:53→20:45)
[2020-07-23] MEDS ORDERED: LIDOCAINE 2% 5 ML VIAL ONE (13:42)
[2020-07-23] MEDS ORDERED: propofoL 200 MG/20 ML VIAL IV ONE (13:42)
[2020-07-23] MEDS: ACETAMINOPHEN 325 MG TABLET PO PRN ×2 (14:46→19:47)
[2020-07-23] MEDS: AZITHROMYCIN INJ 500 MG in SODIUM CHLORIDE 0.9% 250 ML IV SCH (18:00)
[2020-07-24] MEDS: ALBUTEROL/IPRATROPIUM 3 ML NEB RESP TX SCH ×3 (00:43→13:02)
[2020-07-24] MEDS: INSULIN REGULAR 100 UNIT/ML SUBCUT SCH ×3 (02:11→12:20)
[2020-07-24] MEDS: methylPREDNISolone SOD SUC 40 MG/1 ML VIAL IV SCH ×2 (05:17→13:02)
[2020-07-24] MEDS: ARFORMOTEROL 15 MCG/2 ML NEB RESP TX SCH (07:08)
[2020-07-24] MEDS: BUDESONIDE 0.25 MG/2 ML NEB RESP TX SCH (07:08)
[2020-07-24] MEDS ORDERED: NITROFURANTOIN MACRO/MONO 100 MG CAPSULE PO SCH (09:00)
[2020-07-24] MEDS: DOCUSATE SODIUM 100 MG CAPSULE PO SCH (09:21)
[2020-07-24] MEDS: GABAPENTIN 300 MG CAPSULE PO SCH (09:21)
[2020-07-24] MEDS: CYANOCOBALAMIN 500 MCG TABLET PO SCH (09:21)
[2020-07-24] MEDS: FERROUS SULFATE 325 MG TABLET PO SCH (09:21)
[2020-07-24] MEDS: LORATADINE 10 MG TABLET PO SCH (09:21)
[2020-07-24] MEDS: PANTOPRAZOLE 40 MG TABLET PO SCH (09:21)
[2020-07-24 11:23] VITALS: BP 160/72
== END 2020-07-24 13:20 | disposition home health service (06) ==
LOC: N.EDINP 21:41 → N.ED 21:41 → N.2E 07-21 08:16
PROVIDERS: ADMIT Internal Medicine; ATTEND Internal Medicine

== ENCOUNTER 2020-09-18 00:14 | Inpatient (IN) ==
[2020-09-18] MEDS ORDERED: ALBUTEROL/IPRATROPIUM 3 ML NEB RESP TX STA (00:40)
[2020-09-18] MEDS ORDERED: ONDANSETRON 4 MG/2 ML VIAL IV STA (00:40)
[2020-09-18] MEDS ORDERED: PANTOPRAZOLE 40 MG VIAL IV STA (00:40)
[2020-09-18] MEDS ORDERED: FUROSEMIDE 40 MG/4 ML VIAL IV STA (00:40)
[2020-09-18] MEDS ORDERED: MORPHINE 4 MG/1 ML VIAL IV STA (00:40)
[2020-09-18 01:17] LABS: Basophils % 0.5 % (0.0-0.8); Eosinophils # 0.1 10*3/uL (0.0-0.87); Eosinophils % 0.8 % (0.00-10.9); Hematocrit 22.6 VOL% (35.7-47.0); Hemoglobin 6.8 GM/DL (12.0-16.0); Immature Granulocytes % 0.5 %; Immature Granulocytes Absolute 0.03 #; Lymphocytes # 1.5 10*3/uL (1.4-4.0); Lymphocytes % 23.6 % (21.3-54.2); Mean Corpuscular HGB Conc 30.1 GM/DL (32-36); Mean Corpuscular Volume 86.3 FL (87-102); Mean Platelet Volume 10.1 FL (9.6-12.0); Monocytes % 7.1 % (1.7-12.7); Neutrophils % 67.5 % (38.7-73.9); Platelet Count 356 T/CUMM (130-400); Red Blood Count 2.62 MC/CUMM (3.8-5.5); Red Cell Distribution Width 14.5 % (9.3-17.3); White Blood Count 6.4 T/CUMM (4-12)
[2020-09-18 01:18] LABS: Alanine Aminotransferase 14 U/L (13-56); Albumin 3.2 G/DL (3.4-5.0); Alkaline Phosphatase 84 U/L (45-117); Amylase 57 U/L (25-115); Aspartate Amino Transferase 14 U/L (0-37); Bilirubin,Total < 0.39 MG/DL (0.2-1.0); Blood Urea Nitrogen 40 MG/DL (7-18); Calcium 8.7 MG/DL (8.5-10.1); Carbon Dioxide 29 MMOL/L (21-32); Estimated Glom Filtration Rate 34 ML/MIN; Glucose 144 MG/DL (74-106); Osmolality,Calculated 285.8 MOS/KG (273-304); Potassium 4.8 MMOL/L (3.5-5.1); Sodium 137 MMOL/L (136-145); Total Protein 6.4 G/DL (6.4-8.2)
[2020-09-18] MEDS ORDERED: HYDROmorphone 2 MG/1 ML VIAL ONE (01:18)
[2020-09-18] MEDS ORDERED: HYDROmorphone 2 MG/1 ML VIAL IV STA (01:30)
[2020-09-18] MEDS ORDERED: SODIUM CHLORIDE 0.9% 1,000 ML IV PRN (02:37)
[2020-09-18] MEDS ORDERED: ALBUTEROL 2.5 MG/3 ML NEB RESP TX PRN (03:27)
[2020-09-18] MEDS ORDERED: DEXTROSE 50% 25 GM/50 ML VIAL IV PRN (03:33)
[2020-09-18] MEDS ORDERED: GLUCAGON 1 MG VIAL IM PRN (03:33)
[2020-09-18] MEDS ORDERED: ALBUTEROL/IPRATROPIUM 3 ML NEB RESP TX SCH (04:00)
[2020-09-18] MEDS: PANTOPRAZOLE INJ 200 MG in SODIUM CHLORIDE 0.9% 250 ML IV SCH (06:11)
[2020-09-18] MEDS: INSULIN LISPRO 100 UNIT/ML SUBCUT SCH ×3 (06:11→18:37)
[2020-09-18] MEDS: ALBUTEROL/IPRATROPIUM 3 ML NEB RESP TX SCH ×2 (07:13→14:50)
[2020-09-18] MEDS ORDERED: LACTATED RINGERS 1,000 ML IV SCH (09:30)
[2020-09-18] MEDS: FERROUS SULFATE 325 MG TABLET PO SCH (09:34)
[2020-09-18] MEDS: GABAPENTIN 300 MG CAPSULE PO SCH ×3 (09:34→20:51)
[2020-09-18] MEDS: SODIUM CHLORIDE 0.9% 1,000 ML IV SCH ×2 (10:45→15:43)
[2020-09-18] MEDS ORDERED: LIDOCAINE 2% 5 ML VIAL ONE (12:53)
[2020-09-18] MEDS ORDERED: propofoL 200 MG/20 ML VIAL IV ONE (12:53)
[2020-09-18] MEDS ORDERED: ETOMIDATE 20 MG/10 ML VIAL IV ONE (12:53)
[2020-09-18 14:14] LABS: Hematocrit 25.6 VOL% (35.7-47.0); Hemoglobin 8.3 GM/DL (12.0-16.0)
[2020-09-18 21:20] LABS: Hematocrit 25.6 VOL% (35.7-47.0)
[2020-09-19] MEDS: ALBUTEROL/IPRATROPIUM 3 ML NEB RESP TX SCH ×4 (00:40→16:10)
[2020-09-19] MEDS: INSULIN LISPRO 100 UNIT/ML SUBCUT SCH ×4 (00:55→17:08)
[2020-09-19] MEDS: PANTOPRAZOLE INJ 200 MG in SODIUM CHLORIDE 0.9% 250 ML IV SCH (04:46)
[2020-09-19] MEDS: SODIUM CHLORIDE 0.9% 1,000 ML IV SCH (04:48)
[2020-09-19] MEDS: FERROUS SULFATE 325 MG TABLET PO SCH (08:22)
[2020-09-19] MEDS: GABAPENTIN 300 MG CAPSULE PO SCH ×3 (08:22→20:29)
[2020-09-19 12:25] LABS: Hematocrit 27.4 VOL% (35.7-47.0)
[2020-09-19 18:58] LABS: Hematocrit 26.9 VOL% (35.7-47.0); Hemoglobin 8.1 GM/DL (12.0-16.0)
[2020-09-19] MEDS: PANTOPRAZOLE 40 MG TABLET PO SCH (20:28)
[2020-09-20] MEDS: ALBUTEROL/IPRATROPIUM 3 ML NEB RESP TX SCH ×3 (00:15→14:51)
[2020-09-20] MEDS: INSULIN LISPRO 100 UNIT/ML SUBCUT SCH ×4 (00:20→17:07)
[2020-09-20 00:57] LABS: Bacteria,Urine Occasional /HPF (Few); Bilirubin,Urine Negative (Negative); Blood, Urine Moderate mg/dL (Negative); Glucose,Urine (UA) Negative (Negative); Ketones,Urine Negative (Negative); Nitrite,Urine Negative (Negative); Protein,Urine Negative; RBC,Urine 2 /HPF (0-4); Squamous Epithelial Cell,Urine Occasional /HPF (0-10); Urine Appearance Slightly Hazy (Clear); Urine Color Yellow (Yellow); Urine Urobilinogen < 2.0 EU/DL (0.2-1.0)
[2020-09-20] MEDS: ACETAMINOPHEN 325 MG TABLET PO PRN ×2 (03:46→11:55)
[2020-09-20 03:48] LABS: Basophils % 0.5 % (0.0-0.8); Eosinophils # 0.1 10*3/uL (0.0-0.87); Eosinophils % 2.3 % (0.00-10.9); Hematocrit 22.8 VOL% (35.7-47.0); Hemoglobin 7.2 GM/DL (12.0-16.0); Immature Granulocytes % 0.5 %; Immature Granulocytes Absolute 0.02 #; Lymphocytes # 0.9 10*3/uL (1.4-4.0); Mean Corpuscular HGB Conc 31.6 GM/DL (32-36); Mean Corpuscular Volume 85.7 FL (87-102); Mean Platelet Volume 9.4 FL (9.6-12.0); Monocytes % 7.4 % (1.7-12.7); Neutrophils % 69.3 % (38.7-73.9); Platelet Count 244 T/CUMM (130-400); Red Blood Count 2.66 MC/CUMM (3.8-5.5); Red Cell Distribution Width 14.5 % (9.3-17.3); White Blood Count 4.3 T/CUMM (4-12)
[2020-09-20 04:09] LABS: Osmolality,Calculated 282.4 MOS/KG (273-304); Potassium 4.1 MMOL/L (3.5-5.1)
[2020-09-20] MEDS ORDERED: SODIUM CHLORIDE 0.9% 1,000 ML IV PRN (09:06)
[2020-09-20] MEDS: PANTOPRAZOLE 40 MG TABLET PO SCH ×2 (09:38→21:00)
[2020-09-20] MEDS: FERROUS SULFATE 325 MG TABLET PO SCH (09:38)
[2020-09-20] MEDS: GABAPENTIN 300 MG CAPSULE PO SCH ×3 (09:38→21:00)
[2020-09-20] MEDS: PRAMIPEXOLE 0.25 MG TABLET PO SCH (21:00)
[2020-09-21] MEDS: INSULIN LISPRO 100 UNIT/ML SUBCUT SCH ×4 (00:14→17:37)
[2020-09-21] MEDS: ALBUTEROL/IPRATROPIUM 3 ML NEB RESP TX SCH ×3 (01:36→16:11)
[2020-09-21] MEDS: ACETAMINOPHEN 325 MG TABLET PO PRN (07:12)
[2020-09-21] MEDS: FERROUS SULFATE 325 MG TABLET PO SCH (08:48)
[2020-09-21] MEDS: GABAPENTIN 300 MG CAPSULE PO SCH ×3 (08:48→21:58)
[2020-09-21] MEDS: PANTOPRAZOLE 40 MG TABLET PO SCH ×2 (08:49→21:58)
[2020-09-21] MEDS: PRAMIPEXOLE 0.25 MG TABLET PO SCH (21:58)
[2020-09-22] MEDS: ALBUTEROL/IPRATROPIUM 3 ML NEB RESP TX SCH ×3 (00:21→15:56)
[2020-09-22 04:05] LABS: Basophils % 0.9 % (0.0-0.8); Eosinophils # 0.1 10*3/uL (0.0-0.87); Eosinophils % 2.5 % (0.00-10.9); Hematocrit 30.9 VOL% (35.7-47.0); Hemoglobin 9.7 GM/DL (12.0-16.0); Immature Granulocytes % 0.2 %; Immature Granulocytes Absolute 0.01 #; Lymphocytes # 0.9 10*3/uL (1.4-4.0); Mean Corpuscular HGB Conc 31.4 GM/DL (32-36); Mean Corpuscular Volume 88.5 FL (87-102); Mean Platelet Volume 9.4 FL (9.6-12.0); Monocytes % 8.2 % (1.7-12.7); Neutrophils % 67.2 % (38.7-73.9); Platelet Count 221 T/CUMM (130-400); Red Blood Count 3.49 MC/CUMM (3.8-5.5); Red Cell Distribution Width 14.2 % (9.3-17.3); White Blood Count 4.4 T/CUMM (4-12)
[2020-09-22 04:49] LABS: Albumin 2.7 G/DL (3.4-5.0); Bilirubin,Total 0.4 MG/DL (0.2-1.0); Calcium 8.6 MG/DL (8.5-10.1); Osmolality,Calculated 274.7 MOS/KG (273-304); Potassium 3.5 MMOL/L (3.5-5.1); Total Protein 5.6 G/DL (6.4-8.2)
[2020-09-22] MEDS: INSULIN LISPRO 100 UNIT/ML SUBCUT SCH ×5 (06:51→23:01)
[2020-09-22] MEDS: GABAPENTIN 300 MG CAPSULE PO SCH ×3 (08:51→21:03)
[2020-09-22] MEDS: PANTOPRAZOLE 40 MG TABLET PO SCH ×2 (08:51→21:05)
[2020-09-22] MEDS: FERROUS SULFATE 325 MG TABLET PO SCH (08:51)
[2020-09-22] MEDS: MEROPENEM 500 MG in SODIUM CHLORIDE 0.9% 100 ML IV SCH ×2 (14:48→21:02)
[2020-09-22] MEDS: ACETAMINOPHEN 325 MG TABLET PO PRN (21:02)
[2020-09-22] MEDS: PRAMIPEXOLE 0.25 MG TABLET PO SCH (21:03)
[2020-09-22] MEDS: FERROUS GLUCONATE 324 MG TABLET PO SCH (21:03)
[2020-09-23] MEDS: ALBUTEROL/IPRATROPIUM 3 ML NEB RESP TX SCH ×3 (01:03→16:49)
[2020-09-23] MEDS: MEROPENEM 500 MG in SODIUM CHLORIDE 0.9% 100 ML IV SCH ×3 (06:06→21:40)
[2020-09-23] MEDS: INSULIN LISPRO 100 UNIT/ML SUBCUT SCH ×3 (06:07→18:32)
[2020-09-23] MEDS: FERROUS GLUCONATE 324 MG TABLET PO SCH ×2 (08:33→20:29)
[2020-09-23] MEDS: PANTOPRAZOLE 40 MG TABLET PO SCH ×2 (08:33→20:29)
[2020-09-23] MEDS: GABAPENTIN 300 MG CAPSULE PO SCH ×3 (08:33→20:30)
[2020-09-23] MEDS: ACETAMINOPHEN 325 MG TABLET PO PRN ×2 (08:33→21:40)
[2020-09-23 13:21] LABS: Basophils # 0.1 10*3/uL (0.0-0.2); Basophils % 1.7 % (0.0-0.8); Eosinophils # 0.1 10*3/uL (0.0-0.87); Eosinophils % 3.1 % (0.00-10.9); Hematocrit 33.8 VOL% (35.7-47.0); Hemoglobin 10.6 GM/DL (12.0-16.0); Immature Granulocytes % 0.6 %; Immature Granulocytes Absolute 0.02 #; Lymphocytes # 0.8 10*3/uL (1.4-4.0); Lymphocytes % 21.5 % (21.3-54.2); Mean Corpuscular HGB Conc 31.4 GM/DL (32-36); Mean Corpuscular Volume 87.6 FL (87-102); Mean Platelet Volume 9.4 FL (9.6-12.0); Monocytes % 9.2 % (1.7-12.7); Neutrophils % 63.9 % (38.7-73.9); Platelet Count 219 T/CUMM (130-400); Red Blood Count 3.86 MC/CUMM (3.8-5.5); Red Cell Distribution Width 14.3 % (9.3-17.3); White Blood Count 3.6 T/CUMM (4-12)
[2020-09-23] MEDS: NEBIVOLOL 5 MG TABLET PO SCH (14:31)
[2020-09-23] MEDS: PRAMIPEXOLE 0.25 MG TABLET PO SCH (20:29)
[2020-09-24] MEDS: ALBUTEROL/IPRATROPIUM 3 ML NEB RESP TX SCH ×2 (00:23→07:10)
[2020-09-24] MEDS: INSULIN LISPRO 100 UNIT/ML SUBCUT SCH ×2 (01:22→06:02)
[2020-09-24] MEDS: MEROPENEM 500 MG in SODIUM CHLORIDE 0.9% 100 ML IV SCH (05:22)
[2020-09-24 05:44] LABS: Basophils # 0.1 10*3/uL (0.0-0.2); Basophils % 1.2 % (0.0-0.8); Eosinophils # 0.2 10*3/uL (0.0-0.87); Eosinophils % 4.4 % (0.00-10.9); Hematocrit 32.3 VOL% (35.7-47.0); Hemoglobin 10.4 GM/DL (12.0-16.0); Immature Granulocytes % 0.2 %; Immature Granulocytes Absolute 0.01 #; Lymphocytes # 0.9 10*3/uL (1.4-4.0); Lymphocytes % 21.3 % (21.3-54.2); Mean Corpuscular HGB Conc 32.2 GM/DL (32-36); Mean Corpuscular Volume 86.6 FL (87-102); Mean Platelet Volume 9.6 FL (9.6-12.0); Monocytes % 9.8 % (1.7-12.7); Neutrophils % 63.1 % (38.7-73.9); Platelet Count 194 T/CUMM (130-400); Red Blood Count 3.73 MC/CUMM (3.8-5.5); Red Cell Distribution Width 14.3 % (9.3-17.3); White Blood Count 4.3 T/CUMM (4-12)
[2020-09-24 06:10] LABS: Calcium 8.6 MG/DL (8.5-10.1); Osmolality,Calculated 274.7 MOS/KG (273-304); Potassium 3.8 MMOL/L (3.5-5.1)
[2020-09-24] MEDS: NEBIVOLOL 5 MG TABLET PO SCH (08:13)
[2020-09-24] MEDS: PANTOPRAZOLE 40 MG TABLET PO SCH (08:13)
[2020-09-24] MEDS: GABAPENTIN 300 MG CAPSULE PO SCH (08:13)
[2020-09-24] MEDS: FERROUS GLUCONATE 324 MG TABLET PO SCH (08:13)
[2020-09-24 08:29] VITALS: BP 160/89
== END 2020-09-24 11:18 | disposition home health service (06) | DRG 378 ==
LOC: N.ED 00:14 → N.EDINP 02:34 → SUATTDRO 02:34 → N.CC 04:13 → N.TELEN 15:19
PROVIDERS: ADMIT Internal Medicine; ATTEND Internal Medicine

== ENCOUNTER 2020-10-07 18:49 | Observation (INO) ==
[2020-10-07] MEDS ORDERED: ALBUTEROL/IPRATROPIUM 3 ML NEB RESP TX STA (19:43)
[2020-10-07] MEDS ORDERED: MORPHINE 4 MG/1 ML VIAL IV STA (19:43)
[2020-10-07] MEDS ORDERED: ONDANSETRON 4 MG/2 ML VIAL IV STA (19:43)
[2020-10-07] MEDS ORDERED: FUROSEMIDE 100 MG/10 ML VIAL IV STA (19:43)
[2020-10-07 19:57] LABS: Basophils % 0.9 % (0.0-0.8); Eosinophils % 0.9 % (0.00-10.9); Hematocrit 32.5 VOL% (35.7-47.0); Hemoglobin 10.6 GM/DL (12.0-16.0); Immature Granulocytes % 0.2 %; Immature Granulocytes Absolute 0.01 #; Lymphocytes # 0.9 10*3/uL (1.4-4.0); Lymphocytes % 18.9 % (21.3-54.2); Mean Corpuscular HGB Conc 32.6 GM/DL (32-36); Mean Platelet Volume 10.7 FL (9.6-12.0); Monocytes % 8.5 % (1.7-12.7); Neutrophils % 70.6 % (38.7-73.9); Platelet Count 199 T/CUMM (130-400); Red Blood Count 3.78 MC/CUMM (3.8-5.5); Red Cell Distribution Width 15.1 % (9.3-17.3); White Blood Count 4.5 T/CUMM (4-12)
[2020-10-07 20:03] LABS: PT Patient Result 10.8 SECS (10.5-12.0)
[2020-10-07 20:04] LABS: Albumin 3.5 G/DL (3.4-5.0); Bilirubin,Total 0.5 MG/DL (0.2-1.0); Calcium 8.6 MG/DL (8.5-10.1); Osmolality,Calculated 269.2 MOS/KG (273-304); Potassium 3.6 MMOL/L (3.5-5.1); Total Protein 6.1 G/DL (6.4-8.2)
[2020-10-07] MEDS ORDERED: DEXTROSE 50% 25 GM/50 ML VIAL IV PRN (23:40)
[2020-10-07] MEDS ORDERED: ONDANSETRON 4 MG/2 ML VIAL IV PRN (23:40)
[2020-10-07] MEDS ORDERED: GLUCAGON 1 MG VIAL IM PRN (23:40)
[2020-10-07] MEDS: ALBUTEROL/IPRATROPIUM 3 ML NEB RESP TX SCH (23:55)
[2020-10-08] MEDS: INSULIN REGULAR 100 UNIT/ML SUBCUT SCH ×4 (00:13→17:03)
[2020-10-08 01:49] LABS: Bilirubin,Urine Negative (Negative); Blood, Urine Negative (Negative); Glucose,Urine (UA) Negative (Negative); Ketones,Urine Negative (Negative); Nitrite,Urine Negative (Negative); Protein,Urine Negative; RBC,Urine 1 /HPF (0-4); Urine Appearance CLEAR (Clear); Urine Color Colorless (Yellow); Urine Specific Gravity 1.003 (1.001-1.035); Urine Urobilinogen < 2.0 EU/DL (0.2-1.0)
[2020-10-08] MEDS: SODIUM CHLORIDE 0.9% 1,000 ML IV SCH (02:58)
[2020-10-08] MEDS: ALBUTEROL/IPRATROPIUM 3 ML NEB RESP TX SCH ×6 (04:00→23:41)
[2020-10-08 05:21] LABS: Basophils % 0.9 % (0.0-0.8); Eosinophils # 0.1 10*3/uL (0.0-0.87); Eosinophils % 1.8 % (0.00-10.9); Hematocrit 32.3 VOL% (35.7-47.0); Hemoglobin 10.3 GM/DL (12.0-16.0); Immature Granulocytes % 0.4 %; Immature Granulocytes Absolute 0.02 #; Lymphocytes # 0.9 10*3/uL (1.4-4.0); Mean Corpuscular HGB Conc 31.9 GM/DL (32-36); Mean Corpuscular Volume 85.9 FL (87-102); Mean Platelet Volume 10.2 FL (9.6-12.0); Monocytes % 9.2 % (1.7-12.7); Neutrophils % 66.7 % (38.7-73.9); Platelet Count 195 T/CUMM (130-400); Red Blood Count 3.76 MC/CUMM (3.8-5.5); Red Cell Distribution Width 15.1 % (9.3-17.3); White Blood Count 4.5 T/CUMM (4-12)
[2020-10-08 05:55] LABS: Albumin 3.2 G/DL (3.4-5.0); Bilirubin,Total 0.6 MG/DL (0.2-1.0); Calcium 8.4 MG/DL (8.5-10.1); Osmolality,Calculated 278.5 MOS/KG (273-304); Potassium 3.2 MMOL/L (3.5-5.1); Total Protein 6.1 G/DL (6.4-8.2)
[2020-10-08] MEDS: ENOXAPARIN 40 MG/0.4 ML SYRINGE SUBCUT SCH (09:05)
[2020-10-08] MEDS: DOCUSATE SODIUM 100 MG CAPSULE PO SCH ×2 (09:05→21:23)
[2020-10-08] MEDS: FUROSEMIDE 20 MG/2 ML VIAL IV SCH ×2 (09:05→15:35)
[2020-10-08] MEDS: ACETAMINOPHEN 325 MG TABLET PO PRN ×2 (09:06→21:24)
[2020-10-08] MEDS: PANTOPRAZOLE 40 MG TABLET PO SCH (09:06)
[2020-10-08] MEDS ORDERED: POTASSIUM CHLORIDE 20 MEQ TABLET PO ONE (21:03)
[2020-10-08] MEDS ORDERED: PRAMIPEXOLE 0.25 MG TABLET PO SCH (21:15)
[2020-10-08] MEDS ORDERED: AZITHROMYCIN INJ 500 MG in SODIUM CHLORIDE 0.9% 250 ML IV SCH (22:30)
[2020-10-08] MEDS: methylPREDNISolone SOD SUC 40 MG/1 ML VIAL IV SCH (23:34)
[2020-10-09] MEDS: INSULIN REGULAR 100 UNIT/ML SUBCUT SCH ×3 (01:46→13:15)
[2020-10-09] MEDS: ALBUTEROL/IPRATROPIUM 3 ML NEB RESP TX SCH ×3 (03:46→11:07)
[2020-10-09 05:51] LABS: Basophils % 0.4 % (0.0-0.8); Eosinophils % 0.2 % (0.00-10.9); Hematocrit 32.1 VOL% (35.7-47.0); Hemoglobin 10.2 GM/DL (12.0-16.0); Immature Granulocytes % 0.4 %; Immature Granulocytes Absolute 0.02 #; Lymphocytes # 0.3 10*3/uL (1.4-4.0); Lymphocytes % 6.2 % (21.3-54.2); Mean Corpuscular HGB Conc 31.8 GM/DL (32-36); Mean Corpuscular Volume 85.6 FL (87-102); Mean Platelet Volume 10.4 FL (9.6-12.0); Monocytes % 2.2 % (1.7-12.7); Neutrophils % 90.6 % (38.7-73.9); Platelet Count 197 T/CUMM (130-400); Red Blood Count 3.75 MC/CUMM (3.8-5.5); Red Cell Distribution Width 15.3 % (9.3-17.3); White Blood Count 4.5 T/CUMM (4-12)
[2020-10-09 06:22] LABS: Eosinophils 1 % (0-10); Lymphocytes 5 % (20-55); Platelet Estimate Normal; Segmented Neutrophils 94 % (50-85); Total Cells Counted 100
[2020-10-09 06:22] LABS: Bilirubin,Total 0.4 MG/DL (0.2-1.0); Calcium 8.4 MG/DL (8.5-10.1); Osmolality,Calculated 271.5 MOS/KG (273-304); Potassium 3.9 MMOL/L (3.5-5.1); Thyroid Stimulating Hormone 2.13 uIU/ml (0.358-3.74)
[2020-10-09] MEDS: methylPREDNISolone SOD SUC 40 MG/1 ML VIAL IV SCH ×2 (06:24→15:49)
[2020-10-09] MEDS ORDERED: BUDESONIDE 0.5 MG/2 ML NEB RESP TX SCH (07:00)
[2020-10-09] MEDS ORDERED: FERROUS SULFATE 325 MG TABLET PO SCH (08:00)
[2020-10-09] MEDS ORDERED: POTASSIUM CHLORIDE 20 MEQ TABLET PO SCH (09:00)
[2020-10-09] MEDS ORDERED: NEBIVOLOL 5 MG TABLET PO SCH (09:00)
[2020-10-09] MEDS ORDERED: LORATADINE 10 MG TABLET PO SCH (09:00)
[2020-10-09] MEDS ORDERED: ASPIRIN EC 81 MG TABLET PO SCH (09:00)
[2020-10-09] MEDS: GABAPENTIN 300 MG CAPSULE PO SCH ×2 (10:48→15:48)
[2020-10-09] MEDS: PANTOPRAZOLE 40 MG TABLET PO SCH (10:48)
[2020-10-09] MEDS: ENOXAPARIN 40 MG/0.4 ML SYRINGE SUBCUT SCH (10:48)
[2020-10-09] MEDS: DOCUSATE SODIUM 100 MG CAPSULE PO SCH (10:48)
[2020-10-09] MEDS: FUROSEMIDE 20 MG/2 ML VIAL IV SCH ×2 (10:49→15:49)
[2020-10-09] MEDS: SODIUM CHLORIDE 0.9% 1,000 ML IV SCH (11:10)
[2020-10-09 12:27] VITALS: BP 150/63
== END 2020-10-09 16:55 | disposition home health service (06) ==
LOC: N.ED 18:49 → N.EDINP 18:49 → N.3E 22:54
PROVIDERS: ADMIT Internal Medicine; ATTEND Internal Medicine

== ENCOUNTER 2021-03-30 16:53 | Inpatient (IN) ==
[2021-03-30] MEDS ORDERED: SODIUM CHLORIDE 0.9% 1,000 ML IV STA (17:26)
[2021-03-30] MEDS ORDERED: LEVOFLOXACIN INJ 750 MG/150 ML PREMIX IV STA (17:30)
[2021-03-30 17:36] LABS: Basophils % 0.1 % (0.0-0.8); Immature Granulocytes % 0.8 %; Immature Granulocytes Absolute 0.06 #; Lymphocytes # 0.7 10*3/uL (1.4-4.0); Lymphocytes % 9.4 % (21.3-54.2); Mean Corpuscular HGB Conc 29.9 GM/DL (32-36); Mean Corpuscular Volume 88.1 FL (87-102); Mean Platelet Volume 9.6 FL (9.6-12.0); Monocytes % 5.1 % (1.7-12.7); Neutrophils % 84.6 % (38.7-73.9); Platelet Count 294 T/CUMM (130-400); Red Blood Count 2.01 MC/CUMM (3.8-5.5); Red Cell Distribution Width 14.9 % (9.3-17.3); White Blood Count 7.9 T/CUMM (4-12)
[2021-03-30 17:37] LABS: Hematocrit 17.7 VOL% (35.7-47.0)
[2021-03-30 17:39] LABS: Hemoglobin 5.3 GM/DL (12.0-16.0)
[2021-03-30 17:52] LABS: Bilirubin,Total 0.4 MG/DL (0.20-1.00); Calcium 8.4 MG/DL (8.5-10.1); Osmolality,Calculated 283.4 MOS/KG (273-304); Potassium 4.5 MMOL/L (3.5-5.1); Total Protein 5.5 G/DL (6.4-8.2)
[2021-03-30 18:41] LABS: Bacteria,Urine Occasional /HPF (Few); Bilirubin,Urine Negative (Negative); Blood, Urine Negative (Negative); Glucose,Urine (UA) Negative (Negative); Ketones,Urine Negative (Negative); Mucus,Urine Occasional /LPF (Occasional); Nitrite,Urine Positive (Negative); Protein,Urine Negative; RBC,Urine 1 /HPF (0-4); Urine Appearance CLEAR (Clear); Urine Color Yellow (Yellow); Urine Specific Gravity 1.012 (1.001-1.035); Urine Urobilinogen < 2.0 EU/DL (0.2-1.0)
[2021-03-30] MEDS ORDERED: oxyCODONE/ACETAMINOPHEN 5-325 MG TABLET PO PRN (22:53)
[2021-03-30] MEDS ORDERED: SODIUM CHLORIDE 0.9% 1,000 ML IV PRN (22:53)
[2021-03-30] MEDS ORDERED: ONDANSETRON 4 MG/2 ML VIAL IV PRN (22:53)
[2021-03-30] MEDS ORDERED: GLUCAGON 1 MG VIAL IM PRN (22:53)
[2021-03-30] MEDS ORDERED: DEXTROSE 50% 25 GM/50 ML SYRINGE IV PRN (23:08)
[2021-03-30] MEDS: DOCUSATE SODIUM 100 MG CAPSULE PO SCH (23:14)
[2021-03-30] MEDS: INSULIN REGULAR 100 UNIT/ML SUBCUT SCH (23:30)
[2021-03-31] MEDS: INSULIN REGULAR 100 UNIT/ML SUBCUT SCH ×3 (06:00→18:58)
[2021-03-31] MEDS: DOCUSATE SODIUM 100 MG CAPSULE PO SCH ×2 (08:40→21:59)
[2021-03-31] MEDS: PANTOPRAZOLE 40 MG TABLET PO SCH (08:40)
[2021-03-31 09:20] LABS: Hematocrit 23.5 VOL% (35.7-47.0); Hemoglobin 7.2 GM/DL (12.0-16.0)
[2021-03-31] MEDS ORDERED: FUROSEMIDE 20 MG/2 ML VIAL IV ONE (13:11)
[2021-03-31] MEDS: GABAPENTIN 300 MG CAPSULE PO SCH ×3 (14:50→21:58)
[2021-03-31] MEDS ORDERED: FUROSEMIDE 40 MG/4 ML VIAL IV ONE (15:00)
[2021-03-31] MEDS: GLIMEPIRIDE 2 MG TABLET PO SCH (16:05)
[2021-03-31] MEDS: cefTRIAXone 1,000 MG in SODIUM CHLORIDE 0.9% 100 ML IV SCH (16:19)
[2021-03-31] MEDS: NEBIVOLOL 5 MG TABLET PO SCH (16:19)
[2021-03-31] MEDS: MAGNESIUM OXIDE 400 MG TABLET PO SCH (16:19)
[2021-03-31] MEDS: methylPREDNISolone SOD SUC 40 MG/1 ML VIAL IV SCH (16:20)
[2021-03-31] MEDS: ASPIRIN EC 81 MG TABLET PO SCH (16:20)
[2021-03-31] MEDS: AZITHROMYCIN INJ 500 MG in SODIUM CHLORIDE 0.9% 250 ML IV SCH (17:10)
[2021-03-31] MEDS: DOXAZOSIN 1 MG TABLET PO SCH (18:58)
[2021-03-31] MEDS: ALBUTEROL/IPRATROPIUM 3 ML NEB RESP TX SCH (20:01)
[2021-03-31] MEDS: BUDESONIDE 0.5 MG/2 ML NEB RESP TX SCH (20:01)
[2021-03-31] MEDS: ARFORMOTEROL 15 MCG/2 ML NEB RESP TX SCH (20:01)
[2021-03-31] MEDS: PRAMIPEXOLE 0.25 MG TABLET PO SCH (21:58)
[2021-03-31] MEDS: POTASSIUM CHLORIDE 20 MEQ TABLET PO SCH (21:58)
[2021-04-01] MEDS: ALBUTEROL/IPRATROPIUM 3 ML NEB RESP TX SCH ×4 (00:52→20:20)
[2021-04-01] MEDS: INSULIN REGULAR 100 UNIT/ML SUBCUT SCH ×4 (01:48→19:13)
[2021-04-01] MEDS: methylPREDNISolone SOD SUC 40 MG/1 ML VIAL IV SCH ×2 (04:09→22:07)
[2021-04-01 07:00] LABS: Basophils % 0.2 % (0.0-0.8); Hematocrit 25.4 VOL% (35.7-47.0); Hemoglobin 7.5 GM/DL (12.0-16.0); Immature Granulocytes % 0.8 %; Immature Granulocytes Absolute 0.04 #; Lymphocytes # 0.4 10*3/uL (1.4-4.0); Lymphocytes % 7.8 % (21.3-54.2); Mean Corpuscular HGB Conc 29.5 GM/DL (32-36); Mean Corpuscular Volume 92.4 FL (87-102); Mean Platelet Volume 9.6 FL (9.6-12.0); Monocytes % 4.6 % (1.7-12.7); Neutrophils % 86.6 % (38.7-73.9); Platelet Count 244 T/CUMM (130-400); Red Blood Count 2.75 MC/CUMM (3.8-5.5); White Blood Count 5.2 T/CUMM (4-12)
[2021-04-01 07:18] LABS: Albumin 2.5 G/DL (3.4-5.0); Bilirubin,Total 0.6 MG/DL (0.20-1.00); Osmolality,Calculated 291.1 MOS/KG (273-304); Potassium 4.8 MMOL/L (3.5-5.1); Total Protein 5.5 G/DL (6.4-8.2)
[2021-04-01] MEDS: BUDESONIDE 0.5 MG/2 ML NEB RESP TX SCH ×2 (07:29→20:20)
[2021-04-01] MEDS: ARFORMOTEROL 15 MCG/2 ML NEB RESP TX SCH ×2 (07:29→20:20)
[2021-04-01] MEDS ORDERED: IRON SUCROSE 100 MG in SODIUM CHLORIDE 0.9% 100 ML IV SCH (09:00)
[2021-04-01] MEDS ORDERED: IRON SUCROSE 100 MG/5 ML VIAL IV SCH (09:00)
[2021-04-01] MEDS: DOCUSATE SODIUM 100 MG CAPSULE PO SCH ×2 (10:20→22:07)
[2021-04-01] MEDS: MAGNESIUM OXIDE 400 MG TABLET PO SCH (10:20)
[2021-04-01] MEDS: GABAPENTIN 300 MG CAPSULE PO SCH ×3 (10:21→22:07)
[2021-04-01] MEDS: PANTOPRAZOLE 40 MG TABLET PO SCH ×2 (10:21→22:07)
[2021-04-01] MEDS: LORATADINE 10 MG TABLET PO SCH (10:21)
[2021-04-01] MEDS: NEBIVOLOL 5 MG TABLET PO SCH (10:21)
[2021-04-01] MEDS: ASPIRIN EC 81 MG TABLET PO SCH (10:21)
[2021-04-01] MEDS: POTASSIUM CHLORIDE 20 MEQ TABLET PO SCH ×2 (10:21→22:07)
[2021-04-01] MEDS: DOXAZOSIN 1 MG TABLET PO SCH (10:22)
[2021-04-01] MEDS: GLIMEPIRIDE 2 MG TABLET PO SCH (10:22)
[2021-04-01] MEDS: ACETAMINOPHEN 325 MG TABLET PO PRN (10:27)
[2021-04-01] MEDS: FLUTICASONE 50 MCG NASAL SPRAY 16 GM BOTTLE BOTH NARES SCH (10:28)
[2021-04-01] MEDS: cefTRIAXone 1,000 MG in SODIUM CHLORIDE 0.9% 100 ML IV SCH (16:42)
[2021-04-01] MEDS: AZITHROMYCIN INJ 500 MG in SODIUM CHLORIDE 0.9% 250 ML IV SCH (16:44)
[2021-04-01] MEDS ORDERED: LEVOFLOXACIN INJ 750 MG/150 ML PREMIX IV SCH (18:00)
[2021-04-01] MEDS: PRAMIPEXOLE 0.25 MG TABLET PO SCH (22:07)
[2021-04-01] MEDS: SODIUM CHLORIDE 0.9% 1,000 ML IV SCH (23:30)
[2021-04-02] MEDS: ALBUTEROL/IPRATROPIUM 3 ML NEB RESP TX SCH ×4 (00:18→21:30)
[2021-04-02 05:15] LABS: Hematocrit 25.8 VOL% (35.7-47.0); Hemoglobin 7.5 GM/DL (12.0-16.0); Immature Granulocytes % 1.1 %; Immature Granulocytes Absolute 0.08 #; Lymphocytes # 0.3 10*3/uL (1.4-4.0); Mean Corpuscular HGB Conc 29.1 GM/DL (32-36); Mean Corpuscular Volume 93.8 FL (87-102); Monocytes % 2.3 % (1.7-12.7); Neutrophils % 92.6 % (38.7-73.9); Platelet Count 272 T/CUMM (130-400); Red Blood Count 2.75 MC/CUMM (3.8-5.5); Red Cell Distribution Width 15.3 % (9.3-17.3); White Blood Count 7.5 T/CUMM (4-12)
[2021-04-02 05:46] LABS: Anisocytosis Slight; Band Neutrophils 1 % (0-10); Hypochromasia 2+; Lymphocytes 1 % (20-55); Segmented Neutrophils 98 % (50-85); Total Cells Counted 100
[2021-04-02 05:47] LABS: Platelet Estimate Adequate
[2021-04-02 05:51] LABS: Calcium 8.3 MG/DL (8.5-10.1); Osmolality,Calculated 287.8 MOS/KG (273-304); Potassium 5.6 MMOL/L (3.5-5.1)
[2021-04-02] MEDS: INSULIN REGULAR 100 UNIT/ML SUBCUT SCH ×4 (06:22→17:42)
[2021-04-02] MEDS: BUDESONIDE 0.5 MG/2 ML NEB RESP TX SCH ×2 (07:45→21:22)
[2021-04-02] MEDS: ARFORMOTEROL 15 MCG/2 ML NEB RESP TX SCH ×2 (07:45→21:21)
[2021-04-02] MEDS: POTASSIUM CHLORIDE 20 MEQ TABLET PO SCH (08:15)
[2021-04-02] MEDS: methylPREDNISolone SOD SUC 40 MG/1 ML VIAL IV SCH ×2 (08:15→22:18)
[2021-04-02] MEDS: NEBIVOLOL 5 MG TABLET PO SCH (08:16)
[2021-04-02] MEDS: PANTOPRAZOLE 40 MG TABLET PO SCH ×2 (08:16→22:17)
[2021-04-02] MEDS: cefTRIAXone 1,000 MG in SODIUM CHLORIDE 0.9% 100 ML IV SCH (08:16)
[2021-04-02] MEDS: GLIMEPIRIDE 2 MG TABLET PO SCH (08:16)
[2021-04-02] MEDS: ASPIRIN EC 81 MG TABLET PO SCH (08:16)
[2021-04-02] MEDS: GABAPENTIN 300 MG CAPSULE PO SCH ×3 (08:16→22:17)
[2021-04-02] MEDS: DOCUSATE SODIUM 100 MG CAPSULE PO SCH ×2 (08:16→22:18)
[2021-04-02] MEDS: DOXAZOSIN 1 MG TABLET PO SCH (08:16)
[2021-04-02] MEDS: MAGNESIUM OXIDE 400 MG TABLET PO SCH (08:16)
[2021-04-02] MEDS: LORATADINE 10 MG TABLET PO SCH (08:16)
[2021-04-02] MEDS: AZITHROMYCIN INJ 500 MG in SODIUM CHLORIDE 0.9% 250 ML IV SCH (09:38)
[2021-04-02] MEDS ORDERED: SODIUM POLYSTYRENE SULFATE 15 GM/60 ML BOTTLE PO STA (10:04)
[2021-04-02] MEDS ORDERED: MAGNESIUM HYDROXIDE SUSP 30 ML UDCUP PO PRN (10:06)
[2021-04-02] MEDS ORDERED: POLYETHYLENE GLYCOL POWDER 17 GM PACK PO PRN (10:09)
[2021-04-02] MEDS: FERRIC GLUCONATE COMPLEX 125 MG in SODIUM CHLORIDE 0.9% 100 ML IV SCH (10:36)
[2021-04-02] MEDS: FLUTICASONE 50 MCG NASAL SPRAY 16 GM BOTTLE BOTH NARES SCH (10:36)
[2021-04-02] MEDS ORDERED: DEXTROSE 50% 25 GM/50 ML VIAL IV PRN (11:41)
[2021-04-02] MEDS: SODIUM CHLORIDE 0.9% 1,000 ML IV SCH ×2 (17:15→22:22)
[2021-04-02] MEDS: DORNASE ALFA 2.5 MG/2.5 ML VIAL RESP TX SCH (21:30)
[2021-04-02] MEDS: ACETAMINOPHEN 325 MG TABLET PO PRN (22:16)
[2021-04-02] MEDS: PRAMIPEXOLE 0.25 MG TABLET PO SCH (22:16)
[2021-04-03] MEDS: INSULIN REGULAR 100 UNIT/ML SUBCUT SCH ×4 (00:35→19:20)
[2021-04-03] MEDS: ALBUTEROL/IPRATROPIUM 3 ML NEB RESP TX SCH ×4 (01:45→22:06)
[2021-04-03 05:45] LABS: Immature Granulocytes % 1.8 %; Immature Granulocytes Absolute 0.15 #; Lymphocytes # 0.5 10*3/uL (1.4-4.0); Lymphocytes % 5.5 % (21.3-54.2); Mean Corpuscular HGB Conc 28.6 GM/DL (32-36); Mean Corpuscular Volume 94.6 FL (87-102); Mean Platelet Volume 9.8 FL (9.6-12.0); Monocytes % 2.8 % (1.7-12.7); Neutrophils % 89.9 % (38.7-73.9); Platelet Count 309 T/CUMM (130-400); Red Blood Count 2.96 MC/CUMM (3.8-5.5); Red Cell Distribution Width 15.8 % (9.3-17.3); White Blood Count 8.1 T/CUMM (4-12)
[2021-04-03 06:11] LABS: Calcium 7.8 MG/DL (8.5-10.1); Osmolality,Calculated 283.7 MOS/KG (273-304); Potassium 5.5 MMOL/L (3.5-5.1)
[2021-04-03 06:43] LABS: Hypochromasia 1+; Microcytosis 1+
[2021-04-03 06:44] LABS: Ovalocytes Few; Platelet Estimate Normal; Polychromasia Slight
[2021-04-03] MEDS: ARFORMOTEROL 15 MCG/2 ML NEB RESP TX SCH ×2 (07:30→22:05)
[2021-04-03] MEDS: DORNASE ALFA 2.5 MG/2.5 ML VIAL RESP TX SCH ×2 (07:30→22:06)
[2021-04-03] MEDS: BUDESONIDE 0.5 MG/2 ML NEB RESP TX SCH ×2 (07:30→22:06)
[2021-04-03] MEDS: cefTRIAXone 1,000 MG in SODIUM CHLORIDE 0.9% 100 ML IV SCH (10:18)
[2021-04-03] MEDS: AZITHROMYCIN 250 MG TABLET PO SCH (10:19)
[2021-04-03] MEDS: methylPREDNISolone SOD SUC 40 MG/1 ML VIAL IV SCH ×2 (10:19→21:09)
[2021-04-03] MEDS: ASPIRIN EC 81 MG TABLET PO SCH (10:20)
[2021-04-03] MEDS: GABAPENTIN 300 MG CAPSULE PO SCH ×3 (10:20→21:08)
[2021-04-03] MEDS: GLIMEPIRIDE 2 MG TABLET PO SCH (10:20)
[2021-04-03] MEDS: DOXAZOSIN 1 MG TABLET PO SCH (10:20)
[2021-04-03] MEDS: DOCUSATE SODIUM 100 MG CAPSULE PO SCH ×2 (10:20→21:08)
[2021-04-03] MEDS: MAGNESIUM OXIDE 400 MG TABLET PO SCH (10:20)
[2021-04-03] MEDS: NEBIVOLOL 5 MG TABLET PO SCH (10:20)
[2021-04-03] MEDS: PANTOPRAZOLE 40 MG TABLET PO SCH ×2 (10:21→21:08)
[2021-04-03] MEDS: LORATADINE 10 MG TABLET PO SCH (10:21)
[2021-04-03] MEDS: FLUTICASONE 50 MCG NASAL SPRAY 16 GM BOTTLE BOTH NARES SCH (10:28)
[2021-04-03] MEDS: FERRIC GLUCONATE COMPLEX 125 MG in SODIUM CHLORIDE 0.9% 100 ML IV SCH (12:23)
[2021-04-03] MEDS: SODIUM CHLORIDE 0.9% 1,000 ML IV SCH (12:23)
[2021-04-03] MEDS: PRAMIPEXOLE 0.25 MG TABLET PO SCH (21:08)
[2021-04-03] MEDS: ACETAMINOPHEN 325 MG TABLET PO PRN (21:08)
[2021-04-04] MEDS: INSULIN REGULAR 100 UNIT/ML SUBCUT SCH ×3 (00:17→18:02)
[2021-04-04] MEDS: ALBUTEROL/IPRATROPIUM 3 ML NEB RESP TX SCH ×4 (01:44→19:57)
[2021-04-04] MEDS: BUDESONIDE 0.5 MG/2 ML NEB RESP TX SCH ×2 (07:44→19:58)
[2021-04-04] MEDS: ARFORMOTEROL 15 MCG/2 ML NEB RESP TX SCH ×2 (07:44→19:57)
[2021-04-04] MEDS: DORNASE ALFA 2.5 MG/2.5 ML VIAL RESP TX SCH ×2 (07:44→19:58)
[2021-04-04 13:29] LABS: Basophils % 0.1 % (0.0-0.8); Hematocrit 26.6 VOL% (35.7-47.0); Hemoglobin 7.7 GM/DL (12.0-16.0); Immature Granulocytes % 2.2 %; Immature Granulocytes Absolute 0.16 #; Lymphocytes # 0.5 10*3/uL (1.4-4.0); Lymphocytes % 6.2 % (21.3-54.2); Mean Corpuscular HGB Conc 28.9 GM/DL (32-36); Mean Corpuscular Volume 93.3 FL (87-102); Mean Platelet Volume 9.4 FL (9.6-12.0); Monocytes % 3.7 % (1.7-12.7); Neutrophils % 87.8 % (38.7-73.9); Platelet Count 307 T/CUMM (130-400); Red Blood Count 2.85 MC/CUMM (3.8-5.5); Red Cell Distribution Width 15.9 % (9.3-17.3); White Blood Count 7.3 T/CUMM (4-12)
[2021-04-04 13:41] LABS: Osmolality,Calculated 288.7 MOS/KG (273-304); Potassium 5.7 MMOL/L (3.5-5.1)
[2021-04-04] MEDS: SODIUM CHLORIDE 0.9% 1,000 ML IV SCH ×3 (15:28→18:02)
[2021-04-04] MEDS: DOXAZOSIN 1 MG TABLET PO SCH (15:29)
[2021-04-04] MEDS: ASPIRIN EC 81 MG TABLET PO SCH (15:29)
[2021-04-04] MEDS: DOCUSATE SODIUM 100 MG CAPSULE PO SCH ×2 (15:29→21:22)
[2021-04-04] MEDS: GLIMEPIRIDE 2 MG TABLET PO SCH (15:29)
[2021-04-04] MEDS: LORATADINE 10 MG TABLET PO SCH (15:29)
[2021-04-04] MEDS: NEBIVOLOL 5 MG TABLET PO SCH (15:29)
[2021-04-04] MEDS: GABAPENTIN 300 MG CAPSULE PO SCH ×3 (15:30→21:22)
[2021-04-04] MEDS ORDERED: AZITHROMYCIN 250 MG TABLET PO SCH (15:30)
[2021-04-04] MEDS: cefTRIAXone 1,000 MG in SODIUM CHLORIDE 0.9% 100 ML IV SCH (15:30)
[2021-04-04] MEDS: ERGOCALCIFEROL 50,000 UNIT CAPSULE PO SCH (15:30)
[2021-04-04] MEDS: methylPREDNISolone SOD SUC 40 MG/1 ML VIAL IV SCH ×2 (15:31→21:21)
[2021-04-04] MEDS: MAGNESIUM OXIDE 400 MG TABLET PO SCH (15:31)
[2021-04-04] MEDS: FERRIC GLUCONATE COMPLEX 125 MG in SODIUM CHLORIDE 0.9% 100 ML IV SCH (15:31)
[2021-04-04] MEDS: FLUTICASONE 50 MCG NASAL SPRAY 16 GM BOTTLE BOTH NARES SCH (15:31)
[2021-04-04] MEDS: PANTOPRAZOLE 40 MG TABLET PO SCH ×2 (15:31→21:22)
[2021-04-04] MEDS ORDERED: SODIUM POLYSTYRENE SULFATE 15 GM/60 ML BOTTLE PO STA (16:50)
[2021-04-04] MEDS: AZITHROMYCIN 250 MG TABLET PO SCH (17:20)
[2021-04-04] MEDS: ACETAMINOPHEN 325 MG TABLET PO PRN (21:22)
[2021-04-04] MEDS: PRAMIPEXOLE 0.25 MG TABLET PO SCH (21:22)
[2021-04-05] MEDS: ALBUTEROL/IPRATROPIUM 3 ML NEB RESP TX SCH ×5 (00:53→23:40)
[2021-04-05] MEDS: INSULIN REGULAR 100 UNIT/ML SUBCUT SCH ×4 (00:54→18:09)
[2021-04-05 06:13] LABS: Basophils % 0.1 % (0.0-0.8); Hematocrit 25.1 VOL% (35.7-47.0); Hemoglobin 7.3 GM/DL (12.0-16.0); Immature Granulocytes % 3.5 %; Immature Granulocytes Absolute 0.26 #; Lymphocytes # 0.6 10*3/uL (1.4-4.0); Lymphocytes % 7.4 % (21.3-54.2); Mean Corpuscular HGB Conc 29.1 GM/DL (32-36); Mean Corpuscular Volume 93.7 FL (87-102); Mean Platelet Volume 9.5 FL (9.6-12.0); Monocytes % 3.4 % (1.7-12.7); Neutrophils % 85.6 % (38.7-73.9); Platelet Count 287 T/CUMM (130-400); Red Blood Count 2.68 MC/CUMM (3.8-5.5); Red Cell Distribution Width 16.1 % (9.3-17.3); White Blood Count 7.5 T/CUMM (4-12)
[2021-04-05 06:33] LABS: Calcium 7.9 MG/DL (8.5-10.1); Osmolality,Calculated 285.7 MOS/KG (273-304); Potassium 5.6 MMOL/L (3.5-5.1)
[2021-04-05] MEDS: SODIUM CHLORIDE 0.9% 1,000 ML IV SCH (06:56)
[2021-04-05] MEDS ORDERED: PROMETHAZINE 25 MG/1 ML VIAL IM ONE (07:00)
[2021-04-05] MEDS ORDERED: MEPERIDINE 50 MG/1 ML VIAL IM ONE (07:00)
[2021-04-05] MEDS ORDERED: LIDOCAINE 2% 20 ML VIAL RESP TX ONE (07:30)
[2021-04-05] MEDS ORDERED: MIDAZOLAM 2 MG/2 ML VIAL IV ONE (07:30)
[2021-04-05] MEDS ORDERED: LIDOCAINE 2% VISCOUS 100 ML BOTTLE SWISH/SPIT ONE (07:30)
[2021-04-05] MEDS ORDERED: LIDOCAINE 1% 20 ML VIAL MISC INJ ONE (07:30)
[2021-04-05] MEDS: ARFORMOTEROL 15 MCG/2 ML NEB RESP TX SCH ×2 (07:35→20:03)
[2021-04-05] MEDS: BUDESONIDE 0.5 MG/2 ML NEB RESP TX SCH ×2 (07:35→20:03)
[2021-04-05] MEDS: DOCUSATE SODIUM 100 MG CAPSULE PO SCH ×2 (08:26→22:15)
[2021-04-05] MEDS: GLIMEPIRIDE 2 MG TABLET PO SCH (08:26)
[2021-04-05] MEDS: ASPIRIN EC 81 MG TABLET PO SCH (08:26)
[2021-04-05] MEDS: LORATADINE 10 MG TABLET PO SCH (08:26)
[2021-04-05] MEDS: MAGNESIUM OXIDE 400 MG TABLET PO SCH (08:27)
[2021-04-05] MEDS: DORNASE ALFA 2.5 MG/2.5 ML VIAL RESP TX SCH ×2 (08:41→23:23)
[2021-04-05] MEDS: methylPREDNISolone SOD SUC 40 MG/1 ML VIAL IV SCH ×2 (09:58→22:14)
[2021-04-05] MEDS: DOXAZOSIN 1 MG TABLET PO SCH (09:59)
[2021-04-05] MEDS: PANTOPRAZOLE 40 MG TABLET PO SCH ×2 (09:59→22:15)
[2021-04-05] MEDS: GABAPENTIN 300 MG CAPSULE PO SCH ×3 (09:59→22:14)
[2021-04-05] MEDS: cefTRIAXone 1,000 MG in SODIUM CHLORIDE 0.9% 100 ML IV SCH (09:59)
[2021-04-05] MEDS: FLUTICASONE 50 MCG NASAL SPRAY 16 GM BOTTLE BOTH NARES SCH (09:59)
[2021-04-05] MEDS: NEBIVOLOL 5 MG TABLET PO SCH (09:59)
[2021-04-05] MEDS ORDERED: SODIUM CHLORIDE 0.9% 1,000 ML IV PRN (12:17)
[2021-04-05] MEDS ORDERED: FUROSEMIDE 20 MG/2 ML VIAL IV PRN (12:19)
[2021-04-05] MEDS ORDERED: SODIUM POLYSTYRENE SULFATE 15 GM/60 ML BOTTLE PO STA (12:21)
[2021-04-05] MEDS: FUROSEMIDE 20 MG/2 ML VIAL IV SCH (14:52)
[2021-04-05] MEDS: PRAMIPEXOLE 0.25 MG TABLET PO SCH (22:14)
[2021-04-06] MEDS: INSULIN REGULAR 100 UNIT/ML SUBCUT SCH ×4 (00:36→17:59)
[2021-04-06 05:08] LABS: Basophils % 0.1 % (0.0-0.8); Hematocrit 26.8 VOL% (35.7-47.0); Immature Granulocytes % 3.2 %; Immature Granulocytes Absolute 0.28 #; Lymphocytes # 0.5 10*3/uL (1.4-4.0); Mean Corpuscular HGB Conc 29.9 GM/DL (32-36); Mean Corpuscular Volume 90.8 FL (87-102); Mean Platelet Volume 9.5 FL (9.6-12.0); Monocytes % 3.3 % (1.7-12.7); Neutrophils % 87.4 % (38.7-73.9); Platelet Count 302 T/CUMM (130-400); Red Blood Count 2.95 MC/CUMM (3.8-5.5); Red Cell Distribution Width 15.9 % (9.3-17.3); White Blood Count 8.8 T/CUMM (4-12)
[2021-04-06 05:40] LABS: Albumin 2.5 G/DL (3.4-5.0); Bilirubin,Total 0.6 MG/DL (0.20-1.00); Calcium 8.5 MG/DL (8.5-10.1); Potassium 5.2 MMOL/L (3.5-5.1); Total Protein 5.3 G/DL (6.4-8.2)
[2021-04-06] MEDS: ALBUTEROL/IPRATROPIUM 3 ML NEB RESP TX SCH ×3 (07:13→20:27)
[2021-04-06] MEDS: ARFORMOTEROL 15 MCG/2 ML NEB RESP TX SCH ×2 (07:13→20:27)
[2021-04-06] MEDS: BUDESONIDE 0.5 MG/2 ML NEB RESP TX SCH ×2 (07:13→20:27)
[2021-04-06] MEDS: DORNASE ALFA 2.5 MG/2.5 ML VIAL RESP TX SCH ×2 (07:33→20:27)
[2021-04-06] MEDS: GABAPENTIN 300 MG CAPSULE PO SCH ×3 (09:09→22:28)
[2021-04-06] MEDS: MAGNESIUM OXIDE 400 MG TABLET PO SCH (09:09)
[2021-04-06] MEDS: DOXAZOSIN 1 MG TABLET PO SCH (09:09)
[2021-04-06] MEDS: ASPIRIN EC 81 MG TABLET PO SCH (09:10)
[2021-04-06] MEDS: DOCUSATE SODIUM 100 MG CAPSULE PO SCH ×2 (09:10→22:29)
[2021-04-06] MEDS: PANTOPRAZOLE 40 MG TABLET PO SCH ×2 (09:10→22:30)
[2021-04-06] MEDS: NEBIVOLOL 5 MG TABLET PO SCH (09:10)
[2021-04-06] MEDS: LORATADINE 10 MG TABLET PO SCH (09:10)
[2021-04-06] MEDS: GLIMEPIRIDE 2 MG TABLET PO SCH (09:10)
[2021-04-06] MEDS: FUROSEMIDE 20 MG/2 ML VIAL IV SCH (09:15)
[2021-04-06] MEDS: methylPREDNISolone SOD SUC 40 MG/1 ML VIAL IV SCH ×2 (09:15→22:32)
[2021-04-06] MEDS: FLUTICASONE 50 MCG NASAL SPRAY 16 GM BOTTLE BOTH NARES SCH (09:26)
[2021-04-06] MEDS: cefTRIAXone 1,000 MG in SODIUM CHLORIDE 0.9% 100 ML IV SCH (09:26)
[2021-04-06] MEDS: PRAMIPEXOLE 0.25 MG TABLET PO SCH (22:29)
[2021-04-06] MEDS: ACETAMINOPHEN 325 MG TABLET PO PRN (22:31)
[2021-04-07] MEDS: INSULIN REGULAR 100 UNIT/ML SUBCUT SCH ×4 (00:13→17:40)
[2021-04-07] MEDS: ALBUTEROL/IPRATROPIUM 3 ML NEB RESP TX SCH ×4 (01:30→20:29)
[2021-04-07 05:31] LABS: Basophils % 0.1 % (0.0-0.8); Hematocrit 25.5 VOL% (35.7-47.0); Hemoglobin 7.5 GM/DL (12.0-16.0); Immature Granulocytes % 2.4 %; Immature Granulocytes Absolute 0.18 #; Lymphocytes # 0.7 10*3/uL (1.4-4.0); Lymphocytes % 8.9 % (21.3-54.2); Mean Corpuscular HGB Conc 29.4 GM/DL (32-36); Mean Corpuscular Volume 92.1 FL (87-102); Mean Platelet Volume 9.3 FL (9.6-12.0); Neutrophils % 84.6 % (38.7-73.9); Platelet Count 305 T/CUMM (130-400); Red Blood Count 2.77 MC/CUMM (3.8-5.5); Red Cell Distribution Width 16.3 % (9.3-17.3); White Blood Count 7.5 T/CUMM (4-12)
[2021-04-07 05:51] LABS: Calcium 8.5 MG/DL (8.5-10.1); Osmolality,Calculated 282.1 MOS/KG (273-304); Potassium 5.1 MMOL/L (3.5-5.1)
[2021-04-07] MEDS: ARFORMOTEROL 15 MCG/2 ML NEB RESP TX SCH ×2 (07:00→20:29)
[2021-04-07] MEDS: BUDESONIDE 0.5 MG/2 ML NEB RESP TX SCH ×2 (07:00→20:29)
[2021-04-07] MEDS: DORNASE ALFA 2.5 MG/2.5 ML VIAL RESP TX SCH ×2 (07:25→20:30)
[2021-04-07] MEDS: MAGNESIUM OXIDE 400 MG TABLET PO SCH (09:06)
[2021-04-07] MEDS: DOXAZOSIN 1 MG TABLET PO SCH (09:06)
[2021-04-07] MEDS: ERGOCALCIFEROL 50,000 UNIT CAPSULE PO SCH (09:06)
[2021-04-07] MEDS: GABAPENTIN 300 MG CAPSULE PO SCH ×3 (09:06→22:02)
[2021-04-07] MEDS: GLIMEPIRIDE 2 MG TABLET PO SCH (09:06)
[2021-04-07] MEDS: ASPIRIN EC 81 MG TABLET PO SCH (09:07)
[2021-04-07] MEDS: NEBIVOLOL 5 MG TABLET PO SCH (09:07)
[2021-04-07] MEDS: LORATADINE 10 MG TABLET PO SCH ×2 (09:07→22:01)
[2021-04-07] MEDS: ACETAMINOPHEN 325 MG TABLET PO PRN ×2 (09:07→22:01)
[2021-04-07] MEDS: methylPREDNISolone SOD SUC 40 MG/1 ML VIAL IV SCH ×2 (09:08→22:04)
[2021-04-07] MEDS: FERROUS SULFATE 325 MG TABLET PO SCH ×2 (09:08→22:01)
[2021-04-07] MEDS: DOCUSATE SODIUM 100 MG CAPSULE PO SCH ×2 (09:08→22:01)
[2021-04-07] MEDS: FUROSEMIDE 20 MG/2 ML VIAL IV SCH (09:08)
[2021-04-07] MEDS: PANTOPRAZOLE 40 MG TABLET PO SCH ×2 (09:08→22:01)
[2021-04-07] MEDS: FLUTICASONE 50 MCG NASAL SPRAY 16 GM BOTTLE BOTH NARES SCH (09:09)
[2021-04-07] MEDS: cefTRIAXone 1,000 MG in SODIUM CHLORIDE 0.9% 100 ML IV SCH (09:20)
[2021-04-07] MEDS: guaiFENesin 200 MG/10 ML UDCUP PO PRN (17:40)
[2021-04-07] MEDS: PRAMIPEXOLE 0.25 MG TABLET PO SCH (22:00)
[2021-04-08] MEDS: INSULIN REGULAR 100 UNIT/ML SUBCUT SCH ×4 (00:17→17:40)
[2021-04-08] MEDS: ALBUTEROL/IPRATROPIUM 3 ML NEB RESP TX SCH ×4 (00:45→20:10)
[2021-04-08 05:45] LABS: Basophils % 0.1 % (0.0-0.8); Hematocrit 25.1 VOL% (35.7-47.0); Hemoglobin 7.4 GM/DL (12.0-16.0); Immature Granulocytes % 2.3 %; Immature Granulocytes Absolute 0.16 #; Lymphocytes # 0.7 10*3/uL (1.4-4.0); Lymphocytes % 9.3 % (21.3-54.2); Mean Corpuscular HGB Conc 29.5 GM/DL (32-36); Mean Corpuscular Volume 93.3 FL (87-102); Mean Platelet Volume 9.4 FL (9.6-12.0); Monocytes % 4.7 % (1.7-12.7); Neutrophils % 83.6 % (38.7-73.9); Platelet Count 272 T/CUMM (130-400); Red Blood Count 2.69 MC/CUMM (3.8-5.5); Red Cell Distribution Width 16.8 % (9.3-17.3)
[2021-04-08 06:16] LABS: Calcium 8.5 MG/DL (8.5-10.1); Osmolality,Calculated 290.5 MOS/KG (273-304); Potassium 5.1 MMOL/L (3.5-5.1)
[2021-04-08] MEDS: BUDESONIDE 0.5 MG/2 ML NEB RESP TX SCH ×2 (07:15→20:09)
[2021-04-08] MEDS: ARFORMOTEROL 15 MCG/2 ML NEB RESP TX SCH ×2 (07:15→20:09)
[2021-04-08] MEDS: DORNASE ALFA 2.5 MG/2.5 ML VIAL RESP TX SCH ×2 (07:45→20:10)
[2021-04-08] MEDS: LORATADINE 10 MG TABLET PO SCH ×2 (10:49→23:18)
[2021-04-08] MEDS: PANTOPRAZOLE 40 MG TABLET PO SCH ×2 (10:49→23:20)
[2021-04-08] MEDS: DOXAZOSIN 1 MG TABLET PO SCH (10:49)
[2021-04-08] MEDS: MAGNESIUM OXIDE 400 MG TABLET PO SCH (10:49)
[2021-04-08] MEDS: GLIMEPIRIDE 2 MG TABLET PO SCH (10:49)
[2021-04-08] MEDS: FLUTICASONE 50 MCG NASAL SPRAY 16 GM BOTTLE BOTH NARES SCH (10:50)
[2021-04-08] MEDS: GABAPENTIN 300 MG CAPSULE PO SCH ×3 (10:50→23:20)
[2021-04-08] MEDS: ASPIRIN EC 81 MG TABLET PO SCH (10:50)
[2021-04-08] MEDS: NEBIVOLOL 5 MG TABLET PO SCH (10:50)
[2021-04-08] MEDS: DOCUSATE SODIUM 100 MG CAPSULE PO SCH ×2 (10:50→23:19)
[2021-04-08] MEDS: FERROUS SULFATE 325 MG TABLET PO SCH ×2 (10:50→23:19)
[2021-04-08] MEDS: MONTELUKAST 10 MG TABLET PO SCH (10:50)
[2021-04-08] MEDS: methylPREDNISolone SOD SUC 40 MG/1 ML VIAL IV SCH ×2 (10:51→23:20)
[2021-04-08] MEDS: FUROSEMIDE 20 MG/2 ML VIAL IV SCH (10:51)
[2021-04-08] MEDS: cefTRIAXone 1,000 MG in SODIUM CHLORIDE 0.9% 100 ML IV SCH (11:03)
[2021-04-08] MEDS: PRAMIPEXOLE 0.25 MG TABLET PO SCH (23:19)
[2021-04-08] MEDS: MEROPENEM 500 MG in SODIUM CHLORIDE 0.9% 100 ML IV SCH (23:20)
[2021-04-08] MEDS: FLUCONAZOLE INJ 200 MG/100 ML PREMIX IV SCH (23:21)
[2021-04-09] MEDS: ALBUTEROL/IPRATROPIUM 3 ML NEB RESP TX SCH ×4 (00:35→20:25)
[2021-04-09] MEDS: INSULIN REGULAR 100 UNIT/ML SUBCUT SCH ×4 (00:56→17:24)
[2021-04-09] MEDS: methylPREDNISolone SOD SUC 40 MG/1 ML VIAL IV SCH ×3 (00:58→23:50)
[2021-04-09] MEDS: FLUCONAZOLE INJ 200 MG/100 ML PREMIX IV SCH ×2 (00:58→23:55)
[2021-04-09] MEDS: MEROPENEM 500 MG in SODIUM CHLORIDE 0.9% 100 ML IV SCH ×4 (00:58→23:40)
[2021-04-09 06:17] LABS: Hemoglobin 7.6 GM/DL (12.0-16.0); Immature Granulocytes % 2.3 %; Immature Granulocytes Absolute 0.15 #; Lymphocytes # 0.4 10*3/uL (1.4-4.0); Lymphocytes % 6.5 % (21.3-54.2); Mean Corpuscular HGB Conc 30.4 GM/DL (32-36); Mean Corpuscular Volume 91.9 FL (87-102); Mean Platelet Volume 9.3 FL (9.6-12.0); Monocytes % 2.9 % (1.7-12.7); Neutrophils % 88.3 % (38.7-73.9); Platelet Count 231 T/CUMM (130-400); Red Blood Count 2.72 MC/CUMM (3.8-5.5); Red Cell Distribution Width 17.2 % (9.3-17.3); White Blood Count 6.6 T/CUMM (4-12)
[2021-04-09 06:39] LABS: Alanine Aminotransferase 11 U/L (13-56); Albumin 2.5 G/DL (3.4-5.0); Alkaline Phosphatase 52 U/L (45-117); Aspartate Amino Transferase 9 U/L (0-37); Bilirubin,Total < 0.39 MG/DL (0.20-1.00); Blood Urea Nitrogen 42 MG/DL (7-18); Calcium 8.5 MG/DL (8.5-10.1); Carbon Dioxide 31 MMOL/L (21-32); Estimated Glom Filtration Rate 44 ML/MIN; Glucose 194 MG/DL (74-106); Sodium 136 MMOL/L (136-145)
[2021-04-09] MEDS: BUDESONIDE 0.5 MG/2 ML NEB RESP TX SCH ×2 (07:31→20:25)
[2021-04-09] MEDS: ARFORMOTEROL 15 MCG/2 ML NEB RESP TX SCH ×2 (07:31→20:25)
[2021-04-09] MEDS: DORNASE ALFA 2.5 MG/2.5 ML VIAL RESP TX SCH ×2 (07:37→20:41)
[2021-04-09] MEDS: MONTELUKAST 10 MG TABLET PO SCH (09:35)
[2021-04-09] MEDS: FUROSEMIDE 20 MG/2 ML VIAL IV SCH (09:35)
[2021-04-09] MEDS: GABAPENTIN 300 MG CAPSULE PO SCH ×2 (09:35→14:33)
[2021-04-09] MEDS: DOCUSATE SODIUM 100 MG CAPSULE PO SCH (09:35)
[2021-04-09] MEDS: DOXAZOSIN 1 MG TABLET PO SCH (09:35)
[2021-04-09] MEDS: PANTOPRAZOLE 40 MG TABLET PO SCH (09:36)
[2021-04-09] MEDS: GLIMEPIRIDE 2 MG TABLET PO SCH (09:36)
[2021-04-09] MEDS: ASPIRIN EC 81 MG TABLET PO SCH (09:36)
[2021-04-09] MEDS: NEBIVOLOL 5 MG TABLET PO SCH (09:36)
[2021-04-09] MEDS: MAGNESIUM OXIDE 400 MG TABLET PO SCH (09:36)
[2021-04-09] MEDS: FERROUS SULFATE 325 MG TABLET PO SCH (09:36)
[2021-04-09] MEDS: LORATADINE 10 MG TABLET PO SCH (09:36)
[2021-04-09] MEDS: FLUTICASONE 50 MCG NASAL SPRAY 16 GM BOTTLE BOTH NARES SCH (09:46)
[2021-04-09] MEDS ORDERED: FUROSEMIDE 40 MG/4 ML VIAL IV ONE (15:19)
[2021-04-10] MEDS: PRAMIPEXOLE 0.25 MG TABLET PO SCH ×2 (00:07→21:37)
[2021-04-10] MEDS: FERROUS SULFATE 325 MG TABLET PO SCH ×3 (00:09→21:36)
[2021-04-10] MEDS: LORATADINE 10 MG TABLET PO SCH ×3 (00:09→21:38)
[2021-04-10] MEDS: PANTOPRAZOLE 40 MG TABLET PO SCH ×3 (00:10→21:37)
[2021-04-10] MEDS: DOCUSATE SODIUM 100 MG CAPSULE PO SCH ×3 (00:10→21:37)
[2021-04-10] MEDS: GABAPENTIN 300 MG CAPSULE PO SCH ×4 (00:10→21:37)
[2021-04-10] MEDS: INSULIN REGULAR 100 UNIT/ML SUBCUT SCH ×5 (00:50→23:41)
[2021-04-10] MEDS: ALBUTEROL/IPRATROPIUM 3 ML NEB RESP TX SCH ×4 (01:18→20:10)
[2021-04-10 06:19] LABS: Basophils % 0.2 % (0.0-0.8); Hematocrit 27.3 VOL% (35.7-47.0); Hemoglobin 8.1 GM/DL (12.0-16.0); Immature Granulocytes % 1.9 %; Immature Granulocytes Absolute 0.12 #; Lymphocytes # 0.5 10*3/uL (1.4-4.0); Lymphocytes % 7.3 % (21.3-54.2); Mean Corpuscular HGB Conc 29.7 GM/DL (32-36); Mean Corpuscular Volume 92.9 FL (87-102); Mean Platelet Volume 9.5 FL (9.6-12.0); Neutrophils % 87.6 % (38.7-73.9); Platelet Count 246 T/CUMM (130-400); Red Blood Count 2.94 MC/CUMM (3.8-5.5); Red Cell Distribution Width 17.2 % (9.3-17.3); White Blood Count 6.3 T/CUMM (4-12)
[2021-04-10] MEDS: MEROPENEM 500 MG in SODIUM CHLORIDE 0.9% 100 ML IV SCH ×3 (06:36→21:36)
[2021-04-10 06:52] LABS: Calcium 8.6 MG/DL (8.5-10.1); Osmolality,Calculated 279.2 MOS/KG (273-304); Potassium 4.7 MMOL/L (3.5-5.1)
[2021-04-10] MEDS: BUDESONIDE 0.5 MG/2 ML NEB RESP TX SCH ×2 (07:30→20:20)
[2021-04-10] MEDS: ARFORMOTEROL 15 MCG/2 ML NEB RESP TX SCH ×2 (07:30→20:10)
[2021-04-10] MEDS: DORNASE ALFA 2.5 MG/2.5 ML VIAL RESP TX SCH ×2 (07:40→20:20)
[2021-04-10] MEDS: FUROSEMIDE 20 MG/2 ML VIAL IV SCH (09:07)
[2021-04-10] MEDS: methylPREDNISolone SOD SUC 40 MG/1 ML VIAL IV SCH ×2 (09:08→21:34)
[2021-04-10] MEDS: MONTELUKAST 10 MG TABLET PO SCH (09:09)
[2021-04-10] MEDS: DOXAZOSIN 1 MG TABLET PO SCH (09:09)
[2021-04-10] MEDS: MAGNESIUM OXIDE 400 MG TABLET PO SCH (09:09)
[2021-04-10] MEDS: NEBIVOLOL 5 MG TABLET PO SCH (09:10)
[2021-04-10] MEDS: GLIMEPIRIDE 2 MG TABLET PO SCH (09:10)
[2021-04-10] MEDS: ASPIRIN EC 81 MG TABLET PO SCH (09:11)
[2021-04-10] MEDS: FLUTICASONE 50 MCG NASAL SPRAY 16 GM BOTTLE BOTH NARES SCH (09:19)
[2021-04-10] MEDS: FLUCONAZOLE INJ 200 MG/100 ML PREMIX IV SCH (22:23)
[2021-04-11] MEDS: ALBUTEROL/IPRATROPIUM 3 ML NEB RESP TX SCH ×4 (00:20→19:45)
[2021-04-11] MEDS: INSULIN REGULAR 100 UNIT/ML SUBCUT SCH ×3 (06:03→17:59)
[2021-04-11] MEDS: MEROPENEM 500 MG in SODIUM CHLORIDE 0.9% 100 ML IV SCH ×3 (06:04→22:32)
[2021-04-11 06:19] LABS: Hematocrit 28.4 VOL% (35.7-47.0); Hemoglobin 8.6 GM/DL (12.0-16.0); Immature Granulocytes % 1.9 %; Immature Granulocytes Absolute 0.12 #; Lymphocytes # 0.5 10*3/uL (1.4-4.0); Lymphocytes % 7.5 % (21.3-54.2); Mean Corpuscular HGB Conc 30.3 GM/DL (32-36); Mean Corpuscular Volume 93.4 FL (87-102); Mean Platelet Volume 9.6 FL (9.6-12.0); Monocytes % 2.3 % (1.7-12.7); Neutrophils % 88.3 % (38.7-73.9); Platelet Count 248 T/CUMM (130-400); Red Blood Count 3.04 MC/CUMM (3.8-5.5); Red Cell Distribution Width 17.5 % (9.3-17.3); White Blood Count 6.2 T/CUMM (4-12)
[2021-04-11 06:33] LABS: Calcium 8.4 MG/DL (8.5-10.1); Osmolality,Calculated 287.8 MOS/KG (273-304); Potassium 5.2 MMOL/L (3.5-5.1)
[2021-04-11] MEDS: ARFORMOTEROL 15 MCG/2 ML NEB RESP TX SCH ×2 (07:27→19:45)
[2021-04-11] MEDS: BUDESONIDE 0.5 MG/2 ML NEB RESP TX SCH ×2 (07:27→19:45)
[2021-04-11] MEDS: DORNASE ALFA 2.5 MG/2.5 ML VIAL RESP TX SCH ×2 (07:32→20:18)
[2021-04-11] MEDS: GABAPENTIN 300 MG CAPSULE PO SCH ×3 (10:13→22:33)
[2021-04-11] MEDS: NEBIVOLOL 5 MG TABLET PO SCH (10:13)
[2021-04-11] MEDS: DOXAZOSIN 1 MG TABLET PO SCH (10:14)
[2021-04-11] MEDS: PANTOPRAZOLE 40 MG TABLET PO SCH ×2 (10:14→22:33)
[2021-04-11] MEDS: MONTELUKAST 10 MG TABLET PO SCH (10:14)
[2021-04-11] MEDS: FERROUS SULFATE 325 MG TABLET PO SCH ×2 (10:14→22:33)
[2021-04-11] MEDS: ACETAMINOPHEN 325 MG TABLET PO PRN (10:14)
[2021-04-11] MEDS: ASPIRIN EC 81 MG TABLET PO SCH (10:15)
[2021-04-11] MEDS: ERGOCALCIFEROL 50,000 UNIT CAPSULE PO SCH (10:15)
[2021-04-11] MEDS: GLIMEPIRIDE 2 MG TABLET PO SCH (10:15)
[2021-04-11] MEDS: MAGNESIUM OXIDE 400 MG TABLET PO SCH (10:15)
[2021-04-11] MEDS: DOCUSATE SODIUM 100 MG CAPSULE PO SCH ×2 (10:16→22:34)
[2021-04-11] MEDS: FUROSEMIDE 20 MG/2 ML VIAL IV SCH (10:16)
[2021-04-11] MEDS: LORATADINE 10 MG TABLET PO SCH ×2 (10:16→22:34)
[2021-04-11] MEDS: FLUTICASONE 50 MCG NASAL SPRAY 16 GM BOTTLE BOTH NARES SCH (10:20)
[2021-04-11] MEDS: methylPREDNISolone SOD SUC 40 MG/1 ML VIAL IV SCH ×2 (10:50→22:00)
[2021-04-11] MEDS: PRAMIPEXOLE 0.25 MG TABLET PO SCH (22:33)
[2021-04-11] MEDS: FLUCONAZOLE INJ 200 MG/100 ML PREMIX IV SCH (23:10)
[2021-04-12] MEDS: ALBUTEROL/IPRATROPIUM 3 ML NEB RESP TX SCH ×4 (00:40→19:50)
[2021-04-12] MEDS: INSULIN REGULAR 100 UNIT/ML SUBCUT SCH ×5 (00:54→23:34)
[2021-04-12] MEDS: MEROPENEM 500 MG in SODIUM CHLORIDE 0.9% 100 ML IV SCH ×3 (06:22→21:34)
[2021-04-12] MEDS: BUDESONIDE 0.5 MG/2 ML NEB RESP TX SCH ×2 (07:15→19:50)
[2021-04-12] MEDS: ARFORMOTEROL 15 MCG/2 ML NEB RESP TX SCH ×2 (07:15→19:50)
[2021-04-12] MEDS: DORNASE ALFA 2.5 MG/2.5 ML VIAL RESP TX SCH ×2 (07:29→19:50)
[2021-04-12] MEDS ORDERED: FUROSEMIDE 100 MG/10 ML VIAL IV ONE (09:00)
[2021-04-12] MEDS: DOCUSATE SODIUM 100 MG CAPSULE PO SCH ×2 (09:11→22:27)
[2021-04-12] MEDS: GABAPENTIN 300 MG CAPSULE PO SCH ×3 (09:11→21:31)
[2021-04-12] MEDS: MONTELUKAST 10 MG TABLET PO SCH (09:11)
[2021-04-12] MEDS: guaiFENesin 200 MG/10 ML UDCUP PO PRN (09:11)
[2021-04-12] MEDS: FERROUS SULFATE 325 MG TABLET PO SCH ×2 (09:12→21:31)
[2021-04-12] MEDS: MAGNESIUM OXIDE 400 MG TABLET PO SCH (09:12)
[2021-04-12] MEDS: GLIMEPIRIDE 2 MG TABLET PO SCH (09:12)
[2021-04-12] MEDS: PANTOPRAZOLE 40 MG TABLET PO SCH ×2 (09:12→21:31)
[2021-04-12] MEDS: NEBIVOLOL 5 MG TABLET PO SCH (09:12)
[2021-04-12] MEDS: DOXAZOSIN 1 MG TABLET PO SCH (09:12)
[2021-04-12] MEDS: methylPREDNISolone SOD SUC 40 MG/1 ML VIAL IV SCH ×2 (09:13→21:34)
[2021-04-12] MEDS: FUROSEMIDE 20 MG/2 ML VIAL IV SCH (09:13)
[2021-04-12] MEDS: ASPIRIN EC 81 MG TABLET PO SCH (09:13)
[2021-04-12] MEDS: LORATADINE 10 MG TABLET PO SCH ×2 (09:19→22:27)
[2021-04-12] MEDS: FLUTICASONE 50 MCG NASAL SPRAY 16 GM BOTTLE BOTH NARES SCH (09:20)
[2021-04-12] MEDS: PRAMIPEXOLE 0.25 MG TABLET PO SCH (21:31)
[2021-04-12] MEDS: FLUCONAZOLE INJ 200 MG/100 ML PREMIX IV SCH (23:28)
[2021-04-13] MEDS: ALBUTEROL/IPRATROPIUM 3 ML NEB RESP TX SCH ×4 (00:22→19:17)
[2021-04-13] MEDS: MEROPENEM 500 MG in SODIUM CHLORIDE 0.9% 100 ML IV SCH ×3 (05:58→22:37)
[2021-04-13] MEDS: INSULIN REGULAR 100 UNIT/ML SUBCUT SCH ×3 (06:00→17:55)
[2021-04-13 06:14] LABS: Hematocrit 26.9 VOL% (35.7-47.0); Hemoglobin 8.2 GM/DL (12.0-16.0); Immature Granulocytes % 2.4 %; Immature Granulocytes Absolute 0.16 #; Lymphocytes # 0.6 10*3/uL (1.4-4.0); Lymphocytes % 9.5 % (21.3-54.2); Mean Corpuscular HGB Conc 30.5 GM/DL (32-36); Mean Corpuscular Volume 93.4 FL (87-102); Mean Platelet Volume 9.7 FL (9.6-12.0); Monocytes % 4.9 % (1.7-12.7); Neutrophils % 83.2 % (38.7-73.9); Platelet Count 251 T/CUMM (130-400); Red Blood Count 2.88 MC/CUMM (3.8-5.5); Red Cell Distribution Width 17.8 % (9.3-17.3); White Blood Count 6.7 T/CUMM (4-12)
[2021-04-13 06:36] LABS: Albumin 2.6 G/DL (3.4-5.0); Bilirubin,Total 0.4 MG/DL (0.20-1.00); Calcium 8.7 MG/DL (8.5-10.1); Osmolality,Calculated 275.5 MOS/KG (273-304); Potassium 4.9 MMOL/L (3.5-5.1)
[2021-04-13] MEDS: DORNASE ALFA 2.5 MG/2.5 ML VIAL RESP TX SCH ×2 (07:37→19:17)
[2021-04-13] MEDS: ARFORMOTEROL 15 MCG/2 ML NEB RESP TX SCH ×2 (07:48→19:17)
[2021-04-13] MEDS: BUDESONIDE 0.5 MG/2 ML NEB RESP TX SCH ×2 (07:48→19:17)
[2021-04-13] MEDS: FUROSEMIDE 20 MG/2 ML VIAL IV SCH (10:13)
[2021-04-13] MEDS: methylPREDNISolone SOD SUC 40 MG/1 ML VIAL IV SCH ×2 (10:14→22:37)
[2021-04-13] MEDS: NEBIVOLOL 5 MG TABLET PO SCH (10:14)
[2021-04-13] MEDS: DOXAZOSIN 1 MG TABLET PO SCH (10:14)
[2021-04-13] MEDS: GLIMEPIRIDE 2 MG TABLET PO SCH (10:14)
[2021-04-13] MEDS: MONTELUKAST 10 MG TABLET PO SCH (10:15)
[2021-04-13] MEDS: GABAPENTIN 300 MG CAPSULE PO SCH ×3 (10:15→22:33)
[2021-04-13] MEDS: PANTOPRAZOLE 40 MG TABLET PO SCH ×2 (10:15→22:33)
[2021-04-13] MEDS: FERROUS SULFATE 325 MG TABLET PO SCH ×2 (10:15→22:57)
[2021-04-13] MEDS: MAGNESIUM OXIDE 400 MG TABLET PO SCH (10:15)
[2021-04-13] MEDS: LORATADINE 10 MG TABLET PO SCH ×2 (10:15→22:32)
[2021-04-13] MEDS: DOCUSATE SODIUM 100 MG CAPSULE PO SCH ×2 (10:15→22:33)
[2021-04-13] MEDS: ASPIRIN EC 81 MG TABLET PO SCH (10:15)
[2021-04-13] MEDS: FLUTICASONE 50 MCG NASAL SPRAY 16 GM BOTTLE BOTH NARES SCH (11:28)
[2021-04-13] MEDS: guaiFENesin 200 MG/10 ML UDCUP PO PRN (17:53)
[2021-04-13] MEDS ORDERED: FUROSEMIDE 40 MG/4 ML VIAL IV ONE (18:33)
[2021-04-13] MEDS: PRAMIPEXOLE 0.25 MG TABLET PO SCH (22:33)
[2021-04-13] MEDS: FLUCONAZOLE INJ 200 MG/100 ML PREMIX IV SCH (22:38)
[2021-04-13] MEDS: NYSTATIN 500,000 UNIT/5 ML UDCUP SWISH/SWAL SCH (22:57)
[2021-04-14] MEDS: INSULIN REGULAR 100 UNIT/ML SUBCUT SCH ×4 (00:05→18:41)
[2021-04-14] MEDS: ALBUTEROL/IPRATROPIUM 3 ML NEB RESP TX SCH ×4 (00:11→20:15)
[2021-04-14] MEDS: MEROPENEM 500 MG in SODIUM CHLORIDE 0.9% 100 ML IV SCH ×3 (04:56→23:15)
[2021-04-14 06:07] LABS: Basophils % 0.1 % (0.0-0.8); Hematocrit 27.8 VOL% (35.7-47.0); Hemoglobin 8.5 GM/DL (12.0-16.0); Immature Granulocytes % 2.6 %; Immature Granulocytes Absolute 0.18 #; Lymphocytes # 0.5 10*3/uL (1.4-4.0); Lymphocytes % 6.5 % (21.3-54.2); Mean Corpuscular HGB Conc 30.6 GM/DL (32-36); Mean Platelet Volume 9.7 FL (9.6-12.0); Monocytes % 2.5 % (1.7-12.7); Neutrophils % 88.3 % (38.7-73.9); Platelet Count 254 T/CUMM (130-400); Red Blood Count 2.99 MC/CUMM (3.8-5.5); Red Cell Distribution Width 18.1 % (9.3-17.3); White Blood Count 6.9 T/CUMM (4-12)
[2021-04-14 06:08] LABS: Calcium 8.3 MG/DL (8.5-10.1); Osmolality,Calculated 282.2 MOS/KG (273-304); Potassium 4.7 MMOL/L (3.5-5.1)
[2021-04-14] MEDS: BUDESONIDE 0.5 MG/2 ML NEB RESP TX SCH ×2 (07:03→20:15)
[2021-04-14] MEDS: ARFORMOTEROL 15 MCG/2 ML NEB RESP TX SCH ×2 (07:03→20:15)
[2021-04-14] MEDS: DORNASE ALFA 2.5 MG/2.5 ML VIAL RESP TX SCH ×2 (07:20→20:15)
[2021-04-14] MEDS: DOXAZOSIN 1 MG TABLET PO SCH (10:15)
[2021-04-14] MEDS: FERROUS SULFATE 325 MG TABLET PO SCH ×2 (10:15→23:18)
[2021-04-14] MEDS: GABAPENTIN 300 MG CAPSULE PO SCH ×3 (10:15→23:17)
[2021-04-14] MEDS: ASPIRIN EC 81 MG TABLET PO SCH (10:15)
[2021-04-14] MEDS: ERGOCALCIFEROL 50,000 UNIT CAPSULE PO SCH (10:16)
[2021-04-14] MEDS: DOCUSATE SODIUM 100 MG CAPSULE PO SCH ×2 (10:16→23:18)
[2021-04-14] MEDS: NEBIVOLOL 5 MG TABLET PO SCH (10:17)
[2021-04-14] MEDS: MULTIVITAMIN (BEROCCA) TABLET PO SCH (10:17)
[2021-04-14] MEDS: MONTELUKAST 10 MG TABLET PO SCH (10:17)
[2021-04-14] MEDS: LORATADINE 10 MG TABLET PO SCH ×2 (10:17→23:19)
[2021-04-14] MEDS: PANTOPRAZOLE 40 MG TABLET PO SCH ×2 (10:17→23:18)
[2021-04-14] MEDS: FUROSEMIDE 20 MG/2 ML VIAL IV SCH (10:18)
[2021-04-14] MEDS: methylPREDNISolone SOD SUC 40 MG/1 ML VIAL IV SCH ×2 (10:19→23:15)
[2021-04-14] MEDS: GLIMEPIRIDE 2 MG TABLET PO SCH (10:19)
[2021-04-14] MEDS: NYSTATIN 500,000 UNIT/5 ML UDCUP SWISH/SWAL SCH ×4 (14:40→23:17)
[2021-04-14] MEDS: MAGNESIUM OXIDE 400 MG TABLET PO SCH (14:42)
[2021-04-14] MEDS: FLUTICASONE 50 MCG NASAL SPRAY 16 GM BOTTLE BOTH NARES SCH (15:04)
[2021-04-14] MEDS: PRAMIPEXOLE 0.25 MG TABLET PO SCH (23:18)
[2021-04-14] MEDS: FLUCONAZOLE INJ 200 MG/100 ML PREMIX IV SCH (23:58)
[2021-04-15] MEDS: ALBUTEROL/IPRATROPIUM 3 ML NEB RESP TX SCH ×4 (00:49→21:27)
[2021-04-15] MEDS: INSULIN REGULAR 100 UNIT/ML SUBCUT SCH ×4 (00:49→17:57)
[2021-04-15 05:01] LABS: Hematocrit 27.3 VOL% (35.7-47.0); Hemoglobin 8.3 GM/DL (12.0-16.0); Immature Granulocytes % 1.6 %; Immature Granulocytes Absolute 0.12 #; Lymphocytes # 0.4 10*3/uL (1.4-4.0); Lymphocytes % 5.5 % (21.3-54.2); Mean Corpuscular HGB Conc 30.4 GM/DL (32-36); Mean Corpuscular Volume 91.6 FL (87-102); Mean Platelet Volume 9.3 FL (9.6-12.0); Monocytes % 3.5 % (1.7-12.7); Neutrophils % 89.4 % (38.7-73.9); Platelet Count 241 T/CUMM (130-400); Red Blood Count 2.98 MC/CUMM (3.8-5.5); Red Cell Distribution Width 18.2 % (9.3-17.3); White Blood Count 7.5 T/CUMM (4-12)
[2021-04-15 05:31] LABS: Calcium 8.6 MG/DL (8.5-10.1); Osmolality,Calculated 271.7 MOS/KG (273-304); Potassium 4.4 MMOL/L (3.5-5.1)
[2021-04-15] MEDS: MEROPENEM 500 MG in SODIUM CHLORIDE 0.9% 100 ML IV SCH ×3 (05:56→22:13)
[2021-04-15] MEDS: BUDESONIDE 0.5 MG/2 ML NEB RESP TX SCH ×2 (07:35→21:27)
[2021-04-15] MEDS: ARFORMOTEROL 15 MCG/2 ML NEB RESP TX SCH ×2 (07:35→21:27)
[2021-04-15] MEDS: DORNASE ALFA 2.5 MG/2.5 ML VIAL RESP TX SCH ×2 (07:50→21:27)
[2021-04-15] MEDS: DOCUSATE SODIUM 100 MG CAPSULE PO SCH ×2 (09:50→23:00)
[2021-04-15] MEDS: FUROSEMIDE 20 MG/2 ML VIAL IV SCH (09:50)
[2021-04-15] MEDS: DOXAZOSIN 1 MG TABLET PO SCH (09:50)
[2021-04-15] MEDS: NYSTATIN 500,000 UNIT/5 ML UDCUP SWISH/SWAL SCH ×4 (09:50→22:59)
[2021-04-15] MEDS: PANTOPRAZOLE 40 MG TABLET PO SCH ×2 (09:50→22:59)
[2021-04-15] MEDS: MONTELUKAST 10 MG TABLET PO SCH (09:51)
[2021-04-15] MEDS: GABAPENTIN 300 MG CAPSULE PO SCH ×3 (09:51→23:00)
[2021-04-15] MEDS: NEBIVOLOL 5 MG TABLET PO SCH (09:51)
[2021-04-15] MEDS: MAGNESIUM OXIDE 400 MG TABLET PO SCH (09:51)
[2021-04-15] MEDS: ASPIRIN EC 81 MG TABLET PO SCH (09:51)
[2021-04-15] MEDS: GLIMEPIRIDE 2 MG TABLET PO SCH (09:51)
[2021-04-15] MEDS: FERROUS SULFATE 325 MG TABLET PO SCH ×2 (09:51→23:00)
[2021-04-15] MEDS: MULTIVITAMIN (BEROCCA) TABLET PO SCH (09:51)
[2021-04-15] MEDS: methylPREDNISolone SOD SUC 40 MG/1 ML VIAL IV SCH ×2 (09:52→22:11)
[2021-04-15] MEDS: LORATADINE 10 MG TABLET PO SCH ×2 (09:52→23:00)
[2021-04-15] MEDS: FLUTICASONE 50 MCG NASAL SPRAY 16 GM BOTTLE BOTH NARES SCH (09:53)
[2021-04-15] MEDS: PRAMIPEXOLE 0.25 MG TABLET PO SCH (22:59)
[2021-04-15] MEDS: FLUCONAZOLE INJ 200 MG/100 ML PREMIX IV SCH (23:09)
[2021-04-16] MEDS: INSULIN REGULAR 100 UNIT/ML SUBCUT SCH ×3 (01:29→12:20)
[2021-04-16] MEDS: ALBUTEROL/IPRATROPIUM 3 ML NEB RESP TX SCH ×2 (02:20→07:14)
[2021-04-16 05:44] LABS: Calcium 8.5 MG/DL (8.5-10.1); Osmolality,Calculated 270.9 MOS/KG (273-304); Potassium 4.7 MMOL/L (3.5-5.1)
[2021-04-16] MEDS: MEROPENEM 500 MG in SODIUM CHLORIDE 0.9% 100 ML IV SCH (05:48)
[2021-04-16] MEDS: BUDESONIDE 0.5 MG/2 ML NEB RESP TX SCH (07:14)
[2021-04-16] MEDS: ARFORMOTEROL 15 MCG/2 ML NEB RESP TX SCH (07:14)
[2021-04-16] MEDS: DORNASE ALFA 2.5 MG/2.5 ML VIAL RESP TX SCH (07:30)
[2021-04-16] MEDS: MONTELUKAST 10 MG TABLET PO SCH (09:46)
[2021-04-16] MEDS: GABAPENTIN 300 MG CAPSULE PO SCH (09:46)
[2021-04-16] MEDS: FERROUS SULFATE 325 MG TABLET PO SCH (09:46)
[2021-04-16] MEDS: DOXAZOSIN 1 MG TABLET PO SCH (09:46)
[2021-04-16] MEDS: MULTIVITAMIN (BEROCCA) TABLET PO SCH (09:46)
[2021-04-16] MEDS: LORATADINE 10 MG TABLET PO SCH (09:47)
[2021-04-16] MEDS: NEBIVOLOL 5 MG TABLET PO SCH (09:47)
[2021-04-16] MEDS: GLIMEPIRIDE 2 MG TABLET PO SCH (09:47)
[2021-04-16] MEDS: PANTOPRAZOLE 40 MG TABLET PO SCH (09:47)
[2021-04-16] MEDS: DOCUSATE SODIUM 100 MG CAPSULE PO SCH (09:47)
[2021-04-16] MEDS: MAGNESIUM OXIDE 400 MG TABLET PO SCH (09:47)
[2021-04-16] MEDS: NYSTATIN 500,000 UNIT/5 ML UDCUP SWISH/SWAL SCH (09:47)
[2021-04-16] MEDS: ASPIRIN EC 81 MG TABLET PO SCH (09:48)
[2021-04-16] MEDS: FUROSEMIDE 20 MG/2 ML VIAL IV SCH (09:48)
[2021-04-16] MEDS: methylPREDNISolone SOD SUC 40 MG/1 ML VIAL IV SCH (09:48)
[2021-04-16] MEDS: FLUTICASONE 50 MCG NASAL SPRAY 16 GM BOTTLE BOTH NARES SCH (09:49)
[2021-04-16 11:45] VITALS: BP 157/73
== END 2021-04-16 13:40 | disposition home health service (06) | DRG 177 ==
LOC: EDUNIT# → N.ED 16:53 → N.EDINP 20:01 → N.5E 03-31 18:28
PROVIDERS: ADMIT Internal Medicine; ATTEND Internal Medicine

== ENCOUNTER 2021-08-10 14:01 | Inpatient (IN) ==
[2021-08-10 14:56] LABS: Basophils % 0.5 % (0.0-0.8); Eosinophils # 0.1 10*3/uL (0.0-0.87); Eosinophils % 1.6 % (0.00-10.9); Hematocrit 37.2 VOL% (35.7-47.0); Hemoglobin 11.6 GM/DL (12.0-16.0); Immature Granulocytes % 0.5 %; Immature Granulocytes Absolute 0.02 #; Lymphocytes % 25.2 % (21.3-54.2); Mean Corpuscular HGB Conc 31.2 GM/DL (32-36); Mean Corpuscular Volume 93.7 FL (87-102); Mean Platelet Volume 9.6 FL (9.6-12.0); Monocytes # 0.6 10*3/uL (0.11-0.8); Monocytes % 16.7 % (1.7-12.7); Neutrophils % 55.5 % (38.7-73.9); Platelet Count 168 T/CUMM (130-400); Red Blood Count 3.97 MC/CUMM (3.8-5.5); Red Cell Distribution Width 16.2 % (9.3-17.3); White Blood Count 3.8 T/CUMM (4-12)
[2021-08-10 15:15] LABS: Bacteria,Urine Occasional /HPF (Few); Hyaline Casts,Urine 2 /LPF (0-3); Mucus,Urine Occasional /LPF (Occasional)
[2021-08-10 15:16] LABS: Bilirubin,Urine Negative (Negative); Blood, Urine Negative (Negative); Glucose,Urine (UA) Negative (Negative); Ketones,Urine Negative (Negative); Nitrite,Urine Negative (Negative); Protein,Urine TRACE mg/dL (Negative); Urine Appearance Slightly Cloudy (Clear); Urine Color Yellow (Yellow); Urine Urobilinogen < 2.0 eU/dL (<2.0); Urine pH 6.5 (4.5-8.0)
[2021-08-10] MEDS ORDERED: ONDANSETRON 4 MG/2 ML VIAL IV ONE (15:36)
[2021-08-10] MEDS ORDERED: SODIUM CHLORIDE 0.9% 1,000 ML IV STA (15:42)
[2021-08-10] MEDS ORDERED: cefTRIAXone 1,000 MG in SODIUM CHLORIDE 0.9% 100 ML IV STA (15:43)
[2021-08-10] MEDS ORDERED: ONDANSETRON 4 MG/2 ML VIAL IV STA (15:43)
[2021-08-10 15:44] LABS: Atypical Lymphocytes 1+; Eosinophils 4 % (0-10); Lymphocytes 26 % (20-55); Reactive Lymphocytes Few; Total Cells Counted 100
[2021-08-10 15:45] LABS: Macrocytosis Slight
[2021-08-10 15:46] LABS: Platelet Estimate Decreased; Toxic Granulation 1+
[2021-08-10 15:55] LABS: Albumin 3.6 G/DL (3.4-5.0); Bilirubin,Total 0.7 MG/DL (0.20-1.00); Calcium 9.2 MG/DL (8.5-10.1); Osmolality,Calculated 283.8 MOS/KG (273-304); Potassium 4.3 MMOL/L (3.5-5.1); Total Protein 7.1 G/DL (6.4-8.2)
[2021-08-10] MEDS ORDERED: GLUCAGON 1 MG VIAL IM PRN (17:34)
[2021-08-10] MEDS ORDERED: ONDANSETRON 4 MG/2 ML VIAL IV PRN (17:34)
[2021-08-10] MEDS ORDERED: DEXTROSE 10% 250 ML BAG IV PRN (17:38)
[2021-08-10] MEDS: SODIUM CHLORIDE 0.9% 1,000 ML IV SCH (22:00)
[2021-08-10] MEDS ORDERED: MAGNESIUM HYDROXIDE SUSP 30 ML UDCUP PO PRN (22:26)
[2021-08-10] MEDS ORDERED: POLYETHYLENE GLYCOL POWDER 17 GM PACK PO PRN (22:26)
[2021-08-10] MEDS: ARFORMOTEROL 15 MCG/2 ML NEB RESP TX SCH (23:20)
[2021-08-10] MEDS: BUDESONIDE 0.5 MG/2 ML NEB RESP TX SCH (23:20)
[2021-08-10] MEDS: INSULIN LISPRO 100 UNIT/ML SUBCUT SCH (23:36)
[2021-08-10] MEDS: GABAPENTIN 300 MG CAPSULE PO SCH (23:37)
[2021-08-10] MEDS: PRAMIPEXOLE 0.25 MG TABLET PO SCH (23:37)
[2021-08-10] MEDS: DOCUSATE SODIUM 100 MG CAPSULE PO SCH (23:37)
[2021-08-11 04:54] LABS: Basophils % 0.7 % (0.0-0.8); Eosinophils % 0.2 % (0.00-10.9); Hematocrit 29.1 VOL% (35.7-47.0); Hemoglobin 9.2 GM/DL (12.0-16.0); Immature Granulocytes % 0.5 %; Immature Granulocytes Absolute 0.02 #; Lymphocytes % 24.1 % (21.3-54.2); Mean Corpuscular HGB Conc 31.6 GM/DL (32-36); Mean Corpuscular Volume 94.2 FL (87-102); Mean Platelet Volume 10.4 FL (9.6-12.0); Monocytes # 0.3 10*3/uL (0.11-0.8); Monocytes % 7.7 % (1.7-12.7); Neutrophils % 66.8 % (38.7-73.9); Platelet Count 160 T/CUMM (130-400); Red Blood Count 3.09 MC/CUMM (3.8-5.5); Red Cell Distribution Width 13.5 % (9.3-17.3); White Blood Count 4.2 T/CUMM (4-12)
[2021-08-11 05:21] LABS: Albumin 2.8 G/DL (3.4-5.0); Bilirubin,Total 0.4 MG/DL (0.20-1.00); Calcium 8.5 MG/DL (8.5-10.1); Osmolality,Calculated 289.1 MOS/KG (273-304); Potassium 3.6 MMOL/L (3.5-5.1); Total Protein 5.7 G/DL (6.4-8.2)
[2021-08-11] MEDS: ARFORMOTEROL 15 MCG/2 ML NEB RESP TX SCH ×2 (07:40→20:15)
[2021-08-11] MEDS: ALBUTEROL/IPRATROPIUM 3 ML NEB RESP TX SCH ×4 (07:40→20:15)
[2021-08-11] MEDS: BUDESONIDE 0.5 MG/2 ML NEB RESP TX SCH ×2 (07:40→20:15)
[2021-08-11] MEDS ORDERED: DOXAZOSIN 1 MG TABLET PO SCH (09:00)
[2021-08-11] MEDS: LORATADINE 10 MG TABLET PO SCH (10:44)
[2021-08-11] MEDS: INSULIN LISPRO 100 UNIT/ML SUBCUT SCH ×4 (10:44→21:16)
[2021-08-11] MEDS: MONTELUKAST 10 MG TABLET PO SCH (10:44)
[2021-08-11] MEDS: MAGNESIUM OXIDE 400 MG TABLET PO SCH (10:45)
[2021-08-11] MEDS: DOCUSATE SODIUM 100 MG CAPSULE PO SCH ×2 (10:46→21:16)
[2021-08-11] MEDS: NEBIVOLOL 5 MG TABLET PO SCH (10:46)
[2021-08-11] MEDS: ASPIRIN EC 81 MG TABLET PO SCH (10:46)
[2021-08-11] MEDS: predniSONE 10 MG TABLET PO SCH (10:47)
[2021-08-11] MEDS: GLIMEPIRIDE 2 MG TABLET PO SCH (10:47)
[2021-08-11] MEDS: cefTRIAXone 1,000 MG in SODIUM CHLORIDE 0.9% 100 ML IV SCH (10:48)
[2021-08-11] MEDS: ACETAMINOPHEN 325 MG TABLET PO PRN ×2 (10:49→21:16)
[2021-08-11] MEDS: SODIUM CHLORIDE 0.9% 1,000 ML IV SCH (18:19)
[2021-08-11] MEDS: PRAMIPEXOLE 0.25 MG TABLET PO SCH (21:16)
[2021-08-11] MEDS: GABAPENTIN 300 MG CAPSULE PO SCH (21:17)
[2021-08-12] MEDS: SODIUM CHLORIDE 0.9% 1,000 ML IV SCH (00:10)
[2021-08-12 05:55] LABS: Basophils % 0.5 % (0.0-0.8); Eosinophils % 0.8 % (0.00-10.9); Hematocrit 28.8 VOL% (35.7-47.0); Hemoglobin 8.9 GM/DL (12.0-16.0); Immature Granulocytes % 0.5 %; Immature Granulocytes Absolute 0.02 #; Lymphocytes # 1.1 10*3/uL (1.4-4.0); Lymphocytes % 27.3 % (21.3-54.2); Mean Corpuscular HGB Conc 30.9 GM/DL (32-36); Mean Corpuscular Volume 97.3 FL (87-102); Mean Platelet Volume 10.5 FL (9.6-12.0); Monocytes # 0.3 10*3/uL (0.11-0.8); Monocytes % 7.3 % (1.7-12.7); Neutrophils % 63.6 % (38.7-73.9); Platelet Count 141 T/CUMM (130-400); Red Blood Count 2.96 MC/CUMM (3.8-5.5); Red Cell Distribution Width 13.6 % (9.3-17.3)
[2021-08-12 06:19] LABS: Calcium 8.3 MG/DL (8.5-10.1); Osmolality,Calculated 283.4 MOS/KG (273-304); Potassium 3.6 MMOL/L (3.5-5.1)
[2021-08-12] MEDS: ALBUTEROL/IPRATROPIUM 3 ML NEB RESP TX SCH ×4 (07:30→19:52)
[2021-08-12] MEDS: ARFORMOTEROL 15 MCG/2 ML NEB RESP TX SCH ×2 (07:30→19:52)
[2021-08-12] MEDS: BUDESONIDE 0.5 MG/2 ML NEB RESP TX SCH ×2 (07:30→19:52)
[2021-08-12] MEDS: INSULIN LISPRO 100 UNIT/ML SUBCUT SCH ×5 (09:29→22:14)
[2021-08-12] MEDS: GLIMEPIRIDE 2 MG TABLET PO SCH ×2 (09:30→09:38)
[2021-08-12] MEDS: predniSONE 10 MG TABLET PO SCH ×2 (09:31→09:38)
[2021-08-12] MEDS: ASPIRIN EC 81 MG TABLET PO SCH ×2 (09:31→09:38)
[2021-08-12] MEDS: MONTELUKAST 10 MG TABLET PO SCH (09:32)
[2021-08-12] MEDS: LORATADINE 10 MG TABLET PO SCH ×2 (09:32→09:38)
[2021-08-12] MEDS: NEBIVOLOL 5 MG TABLET PO SCH (09:32)
[2021-08-12] MEDS: DOCUSATE SODIUM 100 MG CAPSULE PO SCH ×2 (09:32→22:14)
[2021-08-12] MEDS: DOXAZOSIN 1 MG TABLET PO SCH (09:32)
[2021-08-12] MEDS: MAGNESIUM OXIDE 400 MG TABLET PO SCH (09:32)
[2021-08-12] MEDS: cefTRIAXone 1,000 MG in SODIUM CHLORIDE 0.9% 100 ML IV SCH (09:33)
[2021-08-12] MEDS: GABAPENTIN 300 MG CAPSULE PO SCH (22:14)
[2021-08-12] MEDS: PRAMIPEXOLE 0.25 MG TABLET PO SCH (22:15)
[2021-08-13] MEDS: SODIUM CHLORIDE 0.9% 1,000 ML IV SCH (02:04)
[2021-08-13] MEDS: ALBUTEROL/IPRATROPIUM 3 ML NEB RESP TX SCH (07:06)
[2021-08-13] MEDS: ARFORMOTEROL 15 MCG/2 ML NEB RESP TX SCH (07:06)
[2021-08-13] MEDS: BUDESONIDE 0.5 MG/2 ML NEB RESP TX SCH (07:56)
[2021-08-13 08:08] VITALS: BP 169/66
[2021-08-13] MEDS: cefTRIAXone 1,000 MG in SODIUM CHLORIDE 0.9% 100 ML IV SCH (09:40)
[2021-08-13] MEDS: GLIMEPIRIDE 2 MG TABLET PO SCH (09:43)
[2021-08-13] MEDS: INSULIN LISPRO 100 UNIT/ML SUBCUT SCH (09:43)
[2021-08-13] MEDS: ASPIRIN EC 81 MG TABLET PO SCH (09:44)
[2021-08-13] MEDS: NEBIVOLOL 5 MG TABLET PO SCH (09:44)
[2021-08-13] MEDS: LORATADINE 10 MG TABLET PO SCH (09:45)
[2021-08-13] MEDS: DOCUSATE SODIUM 100 MG CAPSULE PO SCH (09:45)
[2021-08-13] MEDS: DOXAZOSIN 1 MG TABLET PO SCH (09:45)
[2021-08-13] MEDS: MAGNESIUM OXIDE 400 MG TABLET PO SCH (09:46)
[2021-08-13] MEDS: MONTELUKAST 10 MG TABLET PO SCH (09:46)
[2021-08-13] MEDS: predniSONE 10 MG TABLET PO SCH (09:46)
== END 2021-08-13 10:20 | disposition home health service (06) | DRG 683 ==
LOC: N.ED 14:01 → N.EDINP 17:15 → N.5E 17:52
PROVIDERS: ADMIT Internal Medicine; ATTEND Internal Medicine

== ENCOUNTER 2021-11-16 14:52 | Inpatient (IN) ==
[2021-11-16] MEDS ORDERED: SODIUM CHLORIDE 0.9% 1,000 ML IV STA (15:39)
[2021-11-16] MEDS ORDERED: ONDANSETRON 4 MG/2 ML VIAL IV STA (15:39)
[2021-11-16 15:48] LABS: Basophils % 0.2 % (0.0-0.8); Hemoglobin 10.6 GM/DL (12.0-16.0); Immature Granulocytes % 0.9 %; Immature Granulocytes Absolute 0.13 #; Lymphocytes # 0.4 10*3/uL (1.4-4.0); Mean Corpuscular HGB Conc 32.1 GM/DL (32-36); Mean Corpuscular Volume 94.8 FL (87-102); Mean Platelet Volume 10.4 FL (9.6-12.0); Monocytes # 0.5 10*3/uL (0.11-0.8); Monocytes % 3.9 % (1.7-12.7); Platelet Count 195 T/CUMM (130-400); Red Blood Count 3.48 MC/CUMM (3.8-5.5); Red Cell Distribution Width 14.9 % (9.3-17.3); White Blood Count 13.8 T/CUMM (4-12)
[2021-11-16 16:18] LABS: Band Neutrophils 6 % (0-10); Lymphocytes 2 % (20-55)
[2021-11-16 16:24] LABS: Platelet Estimate Normal; Total Cells Counted 100
[2021-11-16 16:30] LABS: Bilirubin,Total 0.4 MG/DL (0.20-1.00); Calcium 8.6 MG/DL (8.5-10.1); Osmolality,Calculated 295.7 MOS/KG (273-304); Potassium 5.2 MMOL/L (3.5-5.1); Total Protein 5.3 G/DL (6.4-8.2)
[2021-11-16 16:36] LABS: Bacteria,Urine Occasional /HPF (Few); Hyaline Casts,Urine 4 /LPF (0-3); Mucus,Urine Occasional /LPF (Occasional); RBC,Urine 1 /HPF (0-4); Urine Appearance Clear (Clear); Urine Color Yellow (Yellow)
[2021-11-16 16:37] LABS: Bilirubin,Urine Negative (Negative); Blood, Urine Negative (Negative); Glucose,Urine (UA) Negative (Negative); Ketones,Urine Negative (Negative); Nitrite,Urine Negative (Negative); Protein,Urine Negative (Negative); Urine Specific Gravity 1.015 (1.001-1.035); Urine Urobilinogen 0.2 eU/dL (<2.0); Urine pH 5.5 (4.5-8.0)
[2021-11-16] MEDS ORDERED: FUROSEMIDE 20 MG/2 ML VIAL IV STA (17:28)
[2021-11-16] MEDS ORDERED: FUROSEMIDE 40 MG/4 ML VIAL IV STA (17:48)
[2021-11-16] MEDS ORDERED: ONDANSETRON 4 MG/2 ML VIAL IV PRN (18:04)
[2021-11-16] MEDS ORDERED: methylPREDNISolone SOD SUC 125 MG/2 ML VIAL IV SCH (18:30)
[2021-11-16] MEDS: ALBUTEROL/IPRATROPIUM 3 ML NEB RESP TX SCH (19:19)
[2021-11-16] MEDS ORDERED: DOCUSATE SODIUM 100 MG CAPSULE PO SCH (21:00)
[2021-11-16] MEDS: ACETAMINOPHEN 325 MG TABLET PO PRN (21:15)
[2021-11-16] MEDS: methylPREDNISolone SOD SUC 125 MG/2 ML VIAL IV SCH (22:40)
[2021-11-16] MEDS ORDERED: GLUCAGON 1 MG VIAL IM PRN (23:58)
[2021-11-17] MEDS: BENZONATATE 100 MG CAPSULE PO PRN (00:22)
[2021-11-17] MEDS: GABAPENTIN 300 MG CAPSULE PO SCH ×3 (00:22→21:23)
[2021-11-17] MEDS: ALBUTEROL/IPRATROPIUM 3 ML NEB RESP TX SCH ×4 (00:30→18:52)
[2021-11-17] MEDS: methylPREDNISolone SOD SUC 125 MG/2 ML VIAL IV SCH ×4 (04:18→21:24)
[2021-11-17 06:04] LABS: Basophils % 0.1 % (0.0-0.8); Hematocrit 32.5 VOL% (35.7-47.0); Hemoglobin 10.2 GM/DL (12.0-16.0); Immature Granulocytes % 0.7 %; Immature Granulocytes Absolute 0.08 #; Lymphocytes # 0.4 10*3/uL (1.4-4.0); Lymphocytes % 3.5 % (21.3-54.2); Mean Corpuscular HGB Conc 31.4 GM/DL (32-36); Mean Platelet Volume 10.3 FL (9.6-12.0); Monocytes # 0.1 10*3/uL (0.11-0.8); Monocytes % 0.6 % (1.7-12.7); Neutrophils % 95.1 % (38.7-73.9); Platelet Count 171 T/CUMM (130-400); Red Blood Count 3.35 MC/CUMM (3.8-5.5); Red Cell Distribution Width 14.8 % (9.3-17.3); White Blood Count 10.8 T/CUMM (4-12)
[2021-11-17 06:22] LABS: Albumin 2.5 G/DL (3.4-5.0); Bilirubin,Total 0.4 MG/DL (0.20-1.00); Calcium 8.4 MG/DL (8.5-10.1); Osmolality,Calculated 299.5 MOS/KG (273-304); Potassium 5.9 MMOL/L (3.5-5.1); Total Protein 5.6 G/DL (6.4-8.2)
[2021-11-17 06:26] LABS: Lymphocytes 3 % (20-55); Total Cells Counted 100
[2021-11-17 06:27] LABS: Platelet Estimate Adequate
[2021-11-17] MEDS: BUDESONIDE 0.5 MG/2 ML NEB RESP TX SCH ×2 (07:09→18:52)
[2021-11-17] MEDS: ARFORMOTEROL 15 MCG/2 ML NEB RESP TX SCH ×2 (07:09→18:52)
[2021-11-17] MEDS ORDERED: PANTOPRAZOLE 40 MG TABLET PO SCH (09:00)
[2021-11-17] MEDS ORDERED: MAGNESIUM OXIDE 400 MG TABLET PO SCH (09:00)
[2021-11-17] MEDS: INSULIN REGULAR 100 UNIT/ML SUBCUT SCH ×3 (09:24→21:22)
[2021-11-17] MEDS: DOXAZOSIN 1 MG TABLET PO SCH (09:25)
[2021-11-17] MEDS: DOCUSATE SODIUM 100 MG CAPSULE PO SCH ×2 (09:26→23:02)
[2021-11-17] MEDS: MONTELUKAST 10 MG TABLET PO SCH (09:27)
[2021-11-17] MEDS: LORATADINE 10 MG TABLET PO SCH (09:27)
[2021-11-17] MEDS: GLIMEPIRIDE 2 MG TABLET PO SCH (09:27)
[2021-11-17] MEDS: FUROSEMIDE 20 MG/2 ML VIAL IV SCH (09:28)
[2021-11-17] MEDS: NEBIVOLOL 5 MG TABLET PO SCH (09:29)
[2021-11-17] MEDS: FERROUS SULFATE 325 MG TABLET PO SCH ×2 (09:29→21:23)
[2021-11-17] MEDS: ASPIRIN EC 81 MG TABLET PO SCH (09:29)
[2021-11-17] MEDS: PANTOPRAZOLE 40 MG TABLET PO SCH ×2 (09:30→21:23)
[2021-11-17] MEDS: cefTRIAXone 1,000 MG in SODIUM CHLORIDE 0.9% 100 ML IV SCH (09:30)
[2021-11-17] MEDS: AZITHROMYCIN INJ 500 MG in SODIUM CHLORIDE 0.9% 250 ML IV SCH (09:31)
[2021-11-17] MEDS: ACETAMINOPHEN 325 MG TABLET PO PRN ×2 (15:45→21:23)
[2021-11-17] MEDS ORDERED: SODIUM POLYSTYRENE SULFATE 15 GM/60 ML BOTTLE PO STA (18:45)
[2021-11-17] MEDS: POLYETHYLENE GLYCOL POWDER 17 GM PACK PO SCH (21:22)
[2021-11-17] MEDS: PRAMIPEXOLE 0.25 MG TABLET PO SCH (21:23)
[2021-11-17] MEDS: SODIUM CHLORIDE 0.9% 1,000 ML IV SCH (21:24)
[2021-11-18] MEDS: ALBUTEROL/IPRATROPIUM 3 ML NEB RESP TX SCH ×4 (00:10→19:30)
[2021-11-18] MEDS: methylPREDNISolone SOD SUC 125 MG/2 ML VIAL IV SCH (04:46)
[2021-11-18 06:23] LABS: Basophils % 0.1 % (0.0-0.8); Hematocrit 28.9 VOL% (35.7-47.0); Hemoglobin 9.2 GM/DL (12.0-16.0); Immature Granulocytes % 1.2 %; Immature Granulocytes Absolute 0.13 #; Lymphocytes # 0.4 10*3/uL (1.4-4.0); Lymphocytes % 3.7 % (21.3-54.2); Mean Corpuscular HGB Conc 31.8 GM/DL (32-36); Mean Corpuscular Volume 96.7 FL (87-102); Mean Platelet Volume 10.4 FL (9.6-12.0); Monocytes # 0.3 10*3/uL (0.11-0.8); Monocytes % 2.8 % (1.7-12.7); Neutrophils % 92.2 % (38.7-73.9); Platelet Count 171 T/CUMM (130-400); Red Blood Count 2.99 MC/CUMM (3.8-5.5); Red Cell Distribution Width 14.5 % (9.3-17.3); White Blood Count 10.5 T/CUMM (4-12)
[2021-11-18 06:40] LABS: Calcium 8.4 MG/DL (8.5-10.1); Osmolality,Calculated 295.1 MOS/KG (273-304); Potassium 4.8 MMOL/L (3.5-5.1)
[2021-11-18 06:52] LABS: Lymphocytes 3 % (20-55); Total Cells Counted 100
[2021-11-18 06:53] LABS: Macrocytosis Slight; Platelet Estimate Adequate
[2021-11-18] MEDS: BUDESONIDE 0.5 MG/2 ML NEB RESP TX SCH ×2 (07:08→19:30)
[2021-11-18] MEDS: ARFORMOTEROL 15 MCG/2 ML NEB RESP TX SCH ×2 (07:08→19:30)
[2021-11-18] MEDS: SODIUM CHLORIDE 0.9% 1,000 ML IV SCH (07:24)
[2021-11-18] MEDS: cefTRIAXone 1,000 MG in SODIUM CHLORIDE 0.9% 100 ML IV SCH (09:19)
[2021-11-18] MEDS: INSULIN REGULAR 100 UNIT/ML SUBCUT SCH ×4 (09:22→21:53)
[2021-11-18] MEDS: POLYETHYLENE GLYCOL POWDER 17 GM PACK PO SCH (09:23)
[2021-11-18] MEDS: FUROSEMIDE 20 MG/2 ML VIAL IV SCH (09:24)
[2021-11-18] MEDS: DOXAZOSIN 1 MG TABLET PO SCH (09:26)
[2021-11-18] MEDS: NEBIVOLOL 5 MG TABLET PO SCH (09:26)
[2021-11-18] MEDS: ASPIRIN EC 81 MG TABLET PO SCH (09:27)
[2021-11-18] MEDS: FERROUS SULFATE 325 MG TABLET PO SCH ×2 (09:27→21:42)
[2021-11-18] MEDS: GABAPENTIN 300 MG CAPSULE PO SCH ×2 (09:27→21:42)
[2021-11-18] MEDS: MONTELUKAST 10 MG TABLET PO SCH (09:27)
[2021-11-18] MEDS: GLIMEPIRIDE 2 MG TABLET PO SCH (09:27)
[2021-11-18] MEDS: PANTOPRAZOLE 40 MG TABLET PO SCH ×2 (09:27→21:42)
[2021-11-18] MEDS: SIMETHICONE CHEW 125 MG TABLET PO PRN (09:27)
[2021-11-18] MEDS: LORATADINE 10 MG TABLET PO SCH (09:27)
[2021-11-18] MEDS: DOCUSATE SODIUM 100 MG CAPSULE PO SCH ×2 (09:28→21:43)
[2021-11-18] MEDS: AZITHROMYCIN INJ 500 MG in SODIUM CHLORIDE 0.9% 250 ML IV SCH (10:12)
[2021-11-18] MEDS: methylPREDNISolone SOD SUC 40 MG/1 ML VIAL IV SCH ×2 (12:01→21:43)
[2021-11-18] MEDS: BENZONATATE 100 MG CAPSULE PO PRN (21:42)
[2021-11-18] MEDS: PRAMIPEXOLE 0.25 MG TABLET PO SCH (21:42)
[2021-11-19] MEDS: ALBUTEROL/IPRATROPIUM 3 ML NEB RESP TX SCH ×4 (00:26→19:10)
[2021-11-19] MEDS: SODIUM CHLORIDE 0.9% 1,000 ML IV SCH ×2 (00:27→19:31)
[2021-11-19] MEDS: methylPREDNISolone SOD SUC 40 MG/1 ML VIAL IV SCH ×3 (05:19→22:28)
[2021-11-19 05:39] LABS: Basophils % 0.1 % (0.0-0.8); Hematocrit 30.5 VOL% (35.7-47.0); Hemoglobin 9.6 GM/DL (12.0-16.0); Immature Granulocytes % 2.2 %; Immature Granulocytes Absolute 0.21 #; Lymphocytes # 0.4 10*3/uL (1.4-4.0); Lymphocytes % 3.9 % (21.3-54.2); Mean Corpuscular HGB Conc 31.5 GM/DL (32-36); Mean Corpuscular Volume 96.8 FL (87-102); Monocytes # 0.2 10*3/uL (0.11-0.8); Monocytes % 1.9 % (1.7-12.7); Neutrophils % 91.9 % (38.7-73.9); Platelet Count 194 T/CUMM (130-400); Red Blood Count 3.15 MC/CUMM (3.8-5.5); Red Cell Distribution Width 14.6 % (9.3-17.3); White Blood Count 9.3 T/CUMM (4-12)
[2021-11-19 05:53] LABS: Calcium 8.4 MG/DL (8.5-10.1); Potassium 4.7 MMOL/L (3.5-5.1)
[2021-11-19 06:08] LABS: Anisocytosis Slight; Band Neutrophils 3 % (0-10); Lymphocytes 4 % (20-55); Macrocytosis Slight; Platelet Estimate Normal; Total Cells Counted 100
[2021-11-19] MEDS ORDERED: PROMETHAZINE 25 MG/1 ML VIAL IM ONE (07:00)
[2021-11-19] MEDS ORDERED: MEPERIDINE 50 MG/1 ML VIAL IM ONE (07:00)
[2021-11-19] MEDS ORDERED: LIDOCAINE 2% VISCOUS 100 ML BOTTLE SWISH/SPIT ONE (07:45)
[2021-11-19] MEDS ORDERED: LIDOCAINE 1% 20 ML VIAL MISC INJ ONE (07:45)
[2021-11-19] MEDS ORDERED: MIDAZOLAM 2 MG/2 ML VIAL IV ONE (07:45)
[2021-11-19] MEDS ORDERED: LIDOCAINE 2% 20 ML VIAL RESP TX ONE (07:45)
[2021-11-19] MEDS: BUDESONIDE 0.5 MG/2 ML NEB RESP TX SCH ×2 (08:18→19:10)
[2021-11-19] MEDS: ARFORMOTEROL 15 MCG/2 ML NEB RESP TX SCH ×2 (08:18→19:10)
[2021-11-19] MEDS ORDERED: flumazeniL 0.5 MG/5 ML VIAL IV ONE (08:20)
[2021-11-19] MEDS: INSULIN REGULAR 100 UNIT/ML SUBCUT SCH ×4 (10:15→22:29)
[2021-11-19] MEDS: POLYETHYLENE GLYCOL POWDER 17 GM PACK PO SCH (10:39)
[2021-11-19] MEDS: ASPIRIN EC 81 MG TABLET PO SCH (10:40)
[2021-11-19] MEDS: MONTELUKAST 10 MG TABLET PO SCH (10:40)
[2021-11-19] MEDS: PANTOPRAZOLE 40 MG TABLET PO SCH ×2 (10:40→22:29)
[2021-11-19] MEDS: LORATADINE 10 MG TABLET PO SCH (10:40)
[2021-11-19] MEDS: GLIMEPIRIDE 2 MG TABLET PO SCH (10:40)
[2021-11-19] MEDS: NEBIVOLOL 5 MG TABLET PO SCH (10:40)
[2021-11-19] MEDS: FERROUS SULFATE 325 MG TABLET PO SCH ×2 (10:41→22:29)
[2021-11-19] MEDS: GABAPENTIN 300 MG CAPSULE PO SCH ×2 (10:41→22:29)
[2021-11-19] MEDS: DOCUSATE SODIUM 100 MG CAPSULE PO SCH ×2 (10:41→22:29)
[2021-11-19] MEDS: DOXAZOSIN 1 MG TABLET PO SCH (10:41)
[2021-11-19] MEDS: cefTRIAXone 1,000 MG in SODIUM CHLORIDE 0.9% 100 ML IV SCH (10:47)
[2021-11-19] MEDS: FUROSEMIDE 20 MG/2 ML VIAL IV SCH (10:48)
[2021-11-19] MEDS: AZITHROMYCIN INJ 500 MG in SODIUM CHLORIDE 0.9% 250 ML IV SCH (11:58)
[2021-11-19] MEDS: PRAMIPEXOLE 0.25 MG TABLET PO SCH (22:29)
[2021-11-20] MEDS: ALBUTEROL/IPRATROPIUM 3 ML NEB RESP TX SCH ×4 (00:10→19:04)
[2021-11-20] MEDS: methylPREDNISolone SOD SUC 40 MG/1 ML VIAL IV SCH ×3 (04:44→21:05)
[2021-11-20] MEDS: BUDESONIDE 0.5 MG/2 ML NEB RESP TX SCH ×2 (07:24→19:04)
[2021-11-20] MEDS: ARFORMOTEROL 15 MCG/2 ML NEB RESP TX SCH ×2 (07:31→19:18)
[2021-11-20] MEDS: INSULIN REGULAR 100 UNIT/ML SUBCUT SCH ×4 (08:00→21:04)
[2021-11-20] MEDS: cefTRIAXone 1,000 MG in SODIUM CHLORIDE 0.9% 100 ML IV SCH (08:35)
[2021-11-20] MEDS: POLYETHYLENE GLYCOL POWDER 17 GM PACK PO SCH (08:38)
[2021-11-20] MEDS: DOXAZOSIN 1 MG TABLET PO SCH (08:39)
[2021-11-20] MEDS: FERROUS SULFATE 325 MG TABLET PO SCH ×2 (08:40→21:05)
[2021-11-20] MEDS: ASPIRIN EC 81 MG TABLET PO SCH (08:40)
[2021-11-20] MEDS: PANTOPRAZOLE 40 MG TABLET PO SCH ×2 (08:40→21:05)
[2021-11-20] MEDS: SIMETHICONE CHEW 125 MG TABLET PO PRN (08:40)
[2021-11-20] MEDS: GLIMEPIRIDE 2 MG TABLET PO SCH (08:40)
[2021-11-20] MEDS: NEBIVOLOL 5 MG TABLET PO SCH (08:40)
[2021-11-20] MEDS: LORATADINE 10 MG TABLET PO SCH (08:40)
[2021-11-20] MEDS: FUROSEMIDE 20 MG/2 ML VIAL IV SCH (08:40)
[2021-11-20] MEDS: MONTELUKAST 10 MG TABLET PO SCH (08:40)
[2021-11-20] MEDS: GABAPENTIN 300 MG CAPSULE PO SCH ×2 (08:40→21:05)
[2021-11-20] MEDS: DOCUSATE SODIUM 100 MG CAPSULE PO SCH ×2 (08:41→21:05)
[2021-11-20] MEDS: AZITHROMYCIN INJ 500 MG in SODIUM CHLORIDE 0.9% 250 ML IV SCH (09:39)
[2021-11-20] MEDS ORDERED: PHENOL 1.4% THROAT SPRAY 177 ML BOTTLE PO PRN (10:39)
[2021-11-20] MEDS: SODIUM CHLORIDE 0.9% 1,000 ML IV SCH ×2 (10:40→12:09)
[2021-11-20] MEDS: PRAMIPEXOLE 0.25 MG TABLET PO SCH (21:05)
[2021-11-21] MEDS: methylPREDNISolone SOD SUC 40 MG/1 ML VIAL IV SCH ×3 (04:02→20:54)
[2021-11-21] MEDS: BUDESONIDE 0.5 MG/2 ML NEB RESP TX SCH ×2 (07:35→19:12)
[2021-11-21] MEDS: ALBUTEROL/IPRATROPIUM 3 ML NEB RESP TX SCH ×5 (07:35→23:48)
[2021-11-21] MEDS: ARFORMOTEROL 15 MCG/2 ML NEB RESP TX SCH ×2 (07:40→19:26)
[2021-11-21] MEDS: INSULIN REGULAR 100 UNIT/ML SUBCUT SCH ×4 (08:15→20:54)
[2021-11-21] MEDS: cefTRIAXone 1,000 MG in SODIUM CHLORIDE 0.9% 100 ML IV SCH (08:25)
[2021-11-21] MEDS: FUROSEMIDE 20 MG/2 ML VIAL IV SCH (08:25)
[2021-11-21] MEDS: DOXAZOSIN 1 MG TABLET PO SCH (08:26)
[2021-11-21] MEDS: GABAPENTIN 300 MG CAPSULE PO SCH ×2 (08:26→20:55)
[2021-11-21] MEDS: POLYETHYLENE GLYCOL POWDER 17 GM PACK PO SCH (08:26)
[2021-11-21] MEDS: PANTOPRAZOLE 40 MG TABLET PO SCH ×2 (08:26→20:55)
[2021-11-21] MEDS: GLIMEPIRIDE 2 MG TABLET PO SCH (08:26)
[2021-11-21] MEDS: NEBIVOLOL 5 MG TABLET PO SCH (08:26)
[2021-11-21] MEDS: LORATADINE 10 MG TABLET PO SCH (08:26)
[2021-11-21] MEDS: DOCUSATE SODIUM 100 MG CAPSULE PO SCH ×2 (08:27→20:55)
[2021-11-21] MEDS: FERROUS SULFATE 325 MG TABLET PO SCH ×2 (08:27→20:55)
[2021-11-21] MEDS: MONTELUKAST 10 MG TABLET PO SCH (08:27)
[2021-11-21] MEDS: SODIUM CHLORIDE 0.9% 1,000 ML IV SCH (08:28)
[2021-11-21] MEDS: AZITHROMYCIN INJ 500 MG in SODIUM CHLORIDE 0.9% 250 ML IV SCH (09:30)
[2021-11-21] MEDS: ACETAMINOPHEN 325 MG TABLET PO PRN (10:21)
[2021-11-21] MEDS: ASPIRIN EC 81 MG TABLET PO SCH (10:21)
[2021-11-21] MEDS: LINEZOLID INJ 600 MG/300 ML PREMIX IV SCH ×2 (11:58→22:27)
[2021-11-21] MEDS: PRAMIPEXOLE 0.25 MG TABLET PO SCH (20:55)
[2021-11-22] MEDS: methylPREDNISolone SOD SUC 40 MG/1 ML VIAL IV SCH ×3 (04:22→20:44)
[2021-11-22] MEDS: ALBUTEROL/IPRATROPIUM 3 ML NEB RESP TX SCH ×3 (07:18→19:25)
[2021-11-22] MEDS: BUDESONIDE 0.5 MG/2 ML NEB RESP TX SCH ×2 (07:18→19:25)
[2021-11-22] MEDS: ARFORMOTEROL 15 MCG/2 ML NEB RESP TX SCH ×2 (07:18→19:25)
[2021-11-22] MEDS: NEBIVOLOL 5 MG TABLET PO SCH (09:13)
[2021-11-22] MEDS: MONTELUKAST 10 MG TABLET PO SCH (09:13)
[2021-11-22] MEDS: cefTRIAXone 1,000 MG in SODIUM CHLORIDE 0.9% 100 ML IV SCH (09:13)
[2021-11-22] MEDS: LORATADINE 10 MG TABLET PO SCH (09:13)
[2021-11-22] MEDS: PANTOPRAZOLE 40 MG TABLET PO SCH ×2 (09:14→20:52)
[2021-11-22] MEDS: DOCUSATE SODIUM 100 MG CAPSULE PO SCH ×2 (09:14→20:48)
[2021-11-22] MEDS: GLIMEPIRIDE 2 MG TABLET PO SCH (09:14)
[2021-11-22] MEDS: ASPIRIN EC 81 MG TABLET PO SCH (09:14)
[2021-11-22] MEDS: GABAPENTIN 300 MG CAPSULE PO SCH ×2 (09:14→20:49)
[2021-11-22] MEDS: DOXAZOSIN 1 MG TABLET PO SCH (09:14)
[2021-11-22] MEDS: FUROSEMIDE 20 MG/2 ML VIAL IV SCH (09:14)
[2021-11-22] MEDS: POLYETHYLENE GLYCOL POWDER 17 GM PACK PO SCH (09:20)
[2021-11-22] MEDS: FERROUS SULFATE 325 MG TABLET PO SCH ×2 (09:20→20:48)
[2021-11-22] MEDS: SODIUM CHLORIDE 0.9% 1,000 ML IV SCH (09:59)
[2021-11-22] MEDS: INSULIN REGULAR 100 UNIT/ML SUBCUT SCH ×4 (09:59→20:46)
[2021-11-22] MEDS: LINEZOLID INJ 600 MG/300 ML PREMIX IV SCH ×2 (11:07→23:04)
[2021-11-22] MEDS: ACETAMINOPHEN 325 MG TABLET PO PRN (18:23)
[2021-11-22] MEDS: PRAMIPEXOLE 0.25 MG TABLET PO SCH (20:48)
[2021-11-22] MEDS: BENZONATATE 100 MG CAPSULE PO PRN (20:48)
[2021-11-22] MEDS: SIMETHICONE CHEW 125 MG TABLET PO PRN (20:49)
[2021-11-23] MEDS: ALBUTEROL/IPRATROPIUM 3 ML NEB RESP TX SCH ×4 (00:39→19:15)
[2021-11-23] MEDS: methylPREDNISolone SOD SUC 40 MG/1 ML VIAL IV SCH ×3 (04:10→22:42)
[2021-11-23 05:54] LABS: Basophils # 0.1 10*3/uL (0.0-0.2); Basophils % 0.6 % (0.0-0.8); Hematocrit 32.1 VOL% (35.7-47.0); Immature Granulocytes % 8.6 %; Immature Granulocytes Absolute 0.78 #; Lymphocytes # 0.4 10*3/uL (1.4-4.0); Lymphocytes % 4.5 % (21.3-54.2); Mean Corpuscular HGB Conc 31.2 GM/DL (32-36); Mean Corpuscular Volume 98.2 FL (87-102); Mean Platelet Volume 9.8 FL (9.6-12.0); Monocytes # 0.3 10*3/uL (0.11-0.8); Monocytes % 3.4 % (1.7-12.7); Neutrophils % 82.9 % (38.7-73.9); Platelet Count 198 T/CUMM (130-400); Red Blood Count 3.27 MC/CUMM (3.8-5.5); Red Cell Distribution Width 13.9 % (9.3-17.3)
[2021-11-23 06:09] LABS: Alanine Aminotransferase 17 U/L (13-56); Albumin 2.5 G/DL (3.4-5.0); Alkaline Phosphatase 57 U/L (45-117); Aspartate Amino Transferase 13 U/L (0-37); Bilirubin,Total < 0.39 MG/DL (0.20-1.00); Blood Urea Nitrogen 71 MG/DL (7-18); Calcium 8.3 MG/DL (8.5-10.1); Carbon Dioxide 26 MMOL/L (21-32); Chloride 108 MMOL/L (98-107); Glucose 113 MG/DL (74-106); Osmolality,Calculated 302.3 MOS/KG (273-304); Potassium 4.7 MMOL/L (3.5-5.1); Sodium 141 MMOL/L (136-145); Total Protein 5.3 G/DL (6.4-8.2)
[2021-11-23 06:16] LABS: Band Neutrophils 1 % (0-10); Lymphocytes 9 % (20-55); Metamyelocytes 1 %; Promyelocytes 1 %; Total Cells Counted 100
[2021-11-23 06:17] LABS: Macrocytosis Slight; Platelet Estimate Adequate
[2021-11-23] MEDS: BUDESONIDE 0.5 MG/2 ML NEB RESP TX SCH ×2 (07:24→19:15)
[2021-11-23] MEDS: ARFORMOTEROL 15 MCG/2 ML NEB RESP TX SCH ×2 (07:24→19:15)
[2021-11-23] MEDS: INSULIN REGULAR 100 UNIT/ML SUBCUT SCH ×4 (07:28→22:50)
[2021-11-23] MEDS: POLYETHYLENE GLYCOL POWDER 17 GM PACK PO SCH (08:20)
[2021-11-23] MEDS: GABAPENTIN 300 MG CAPSULE PO SCH ×2 (08:21→22:42)
[2021-11-23] MEDS: DOXAZOSIN 1 MG TABLET PO SCH (08:21)
[2021-11-23] MEDS: MONTELUKAST 10 MG TABLET PO SCH (08:21)
[2021-11-23] MEDS: NEBIVOLOL 5 MG TABLET PO SCH (08:21)
[2021-11-23] MEDS: LORATADINE 10 MG TABLET PO SCH (08:21)
[2021-11-23] MEDS: FERROUS SULFATE 325 MG TABLET PO SCH ×2 (08:22→22:42)
[2021-11-23] MEDS: ASPIRIN EC 81 MG TABLET PO SCH (08:22)
[2021-11-23] MEDS: GLIMEPIRIDE 2 MG TABLET PO SCH (08:22)
[2021-11-23] MEDS: DOCUSATE SODIUM 100 MG CAPSULE PO SCH ×2 (08:22→22:45)
[2021-11-23] MEDS: PANTOPRAZOLE 40 MG TABLET PO SCH ×2 (08:22→22:41)
[2021-11-23] MEDS: FUROSEMIDE 20 MG/2 ML VIAL IV SCH (08:22)
[2021-11-23] MEDS: cefTRIAXone 1,000 MG in SODIUM CHLORIDE 0.9% 100 ML IV SCH (08:22)
[2021-11-23] MEDS: LINEZOLID 600 MG TABLET PO SCH ×2 (09:10→22:40)
[2021-11-23] MEDS: BENZONATATE 100 MG CAPSULE PO SCH ×2 (14:24→22:41)
[2021-11-23] MEDS: NEOMYCIN/POLYMYXIN/HC OTIC SOLN 10 ML BOTTLE LEFT EAR SCH ×2 (14:24→22:42)
[2021-11-23] MEDS ORDERED: QUEtiapine 25 MG TABLET PO ONE (15:00)
[2021-11-23 15:07] LABS: Bacteria,Urine Occasional /HPF (Few); Hyaline Casts,Urine 3 /LPF (0-3); Mucus,Urine Occasional /LPF (Occasional); RBC,Urine 1 /HPF (0-4); Squamous Epithelial Cell,Urine Occasional /HPF (0-10)
[2021-11-23 15:08] LABS: Bilirubin,Urine Negative (Negative); Blood, Urine Trace mg/dL (Negative); Glucose,Urine (UA) Negative (Negative); Ketones,Urine Negative (Negative); Nitrite,Urine Negative (Negative); Protein,Urine Negative (Negative); Urine Appearance Clear (Clear); Urine Color Yellow (Yellow); Urine Urobilinogen 0.2 eU/dL (<2.0)
[2021-11-23] MEDS: PRAMIPEXOLE 0.25 MG TABLET PO SCH (22:40)
[2021-11-23] MEDS: QUEtiapine 25 MG TABLET PO SCH (22:41)
[2021-11-24] MEDS: ALBUTEROL/IPRATROPIUM 3 ML NEB RESP TX SCH ×4 (00:30→19:07)
[2021-11-24] MEDS: ACETAMINOPHEN 325 MG TABLET PO PRN (04:46)
[2021-11-24 06:35] LABS: Calcium 8.6 MG/DL (8.5-10.1); Osmolality,Calculated 298.5 MOS/KG (273-304); Potassium 5.1 MMOL/L (3.5-5.1)
[2021-11-24] MEDS ORDERED: MAGNESIUM HYDROXIDE SUSP 30 ML UDCUP PO PRN (06:56)
[2021-11-24] MEDS ORDERED: MAGNESIUM HYDROXIDE SUSP 30 ML UDCUP PO ONE (06:56)
[2021-11-24] MEDS: ARFORMOTEROL 15 MCG/2 ML NEB RESP TX SCH ×2 (07:09→19:14)
[2021-11-24] MEDS: BUDESONIDE 0.5 MG/2 ML NEB RESP TX SCH ×2 (07:09→19:07)
[2021-11-24] MEDS: INSULIN REGULAR 100 UNIT/ML SUBCUT SCH ×4 (09:37→21:01)
[2021-11-24] MEDS: LORATADINE 10 MG TABLET PO SCH (09:39)
[2021-11-24] MEDS: DOXAZOSIN 1 MG TABLET PO SCH (09:39)
[2021-11-24] MEDS: NEBIVOLOL 5 MG TABLET PO SCH (09:39)
[2021-11-24] MEDS: DOCUSATE SODIUM 100 MG CAPSULE PO SCH ×2 (09:39→21:01)
[2021-11-24] MEDS: QUEtiapine 25 MG TABLET PO SCH ×2 (09:40→21:02)
[2021-11-24] MEDS: ASPIRIN EC 81 MG TABLET PO SCH (09:40)
[2021-11-24] MEDS: PANTOPRAZOLE 40 MG TABLET PO SCH ×2 (09:41→21:02)
[2021-11-24] MEDS: FERROUS SULFATE 325 MG TABLET PO SCH ×2 (09:41→21:02)
[2021-11-24] MEDS: methylPREDNISolone SOD SUC 40 MG/1 ML VIAL IV SCH (09:41)
[2021-11-24] MEDS: GABAPENTIN 300 MG CAPSULE PO SCH ×2 (09:41→21:01)
[2021-11-24] MEDS: MONTELUKAST 10 MG TABLET PO SCH (09:42)
[2021-11-24] MEDS: cefTRIAXone 1,000 MG in SODIUM CHLORIDE 0.9% 100 ML IV SCH (09:42)
[2021-11-24] MEDS: FUROSEMIDE 20 MG/2 ML VIAL IV SCH (09:42)
[2021-11-24] MEDS: POLYETHYLENE GLYCOL POWDER 17 GM PACK PO SCH ×2 (09:43→21:02)
[2021-11-24] MEDS: NEOMYCIN/POLYMYXIN/HC OTIC SOLN 10 ML BOTTLE LEFT EAR SCH ×3 (09:43→22:47)
[2021-11-24] MEDS: BENZONATATE 100 MG CAPSULE PO SCH ×3 (09:46→21:02)
[2021-11-24] MEDS: GLIMEPIRIDE 2 MG TABLET PO SCH (09:46)
[2021-11-24] MEDS: LINEZOLID 600 MG TABLET PO SCH ×2 (09:46→21:02)
[2021-11-24] MEDS: PRAMIPEXOLE 0.25 MG TABLET PO SCH (21:02)
[2021-11-24] MEDS ORDERED: BISACODYL 5 MG TABLET PO ONE (23:18)
[2021-11-25] MEDS: ALBUTEROL/IPRATROPIUM 3 ML NEB RESP TX SCH ×4 (01:27→19:20)
[2021-11-25 07:01] LABS: Basophils % 0.2 % (0.0-0.8); Eosinophils % 0.2 % (0.00-10.9); Hematocrit 31.9 VOL% (35.7-47.0); Immature Granulocytes % 4.6 %; Immature Granulocytes Absolute 0.56 #; Lymphocytes # 1.1 10*3/uL (1.4-4.0); Lymphocytes % 9.2 % (21.3-54.2); Mean Corpuscular HGB Conc 31.3 GM/DL (32-36); Mean Corpuscular Volume 97.6 FL (87-102); Mean Platelet Volume 9.8 FL (9.6-12.0); Monocytes # 0.8 10*3/uL (0.11-0.8); Monocytes % 6.5 % (1.7-12.7); Neutrophils % 79.3 % (38.7-73.9); Platelet Count 216 T/CUMM (130-400); Red Blood Count 3.27 MC/CUMM (3.8-5.5); Red Cell Distribution Width 14.4 % (9.3-17.3); White Blood Count 12.3 T/CUMM (4-12)
[2021-11-25] MEDS: ARFORMOTEROL 15 MCG/2 ML NEB RESP TX SCH ×2 (07:12→19:51)
[2021-11-25] MEDS: BUDESONIDE 0.5 MG/2 ML NEB RESP TX SCH ×2 (07:12→19:20)
[2021-11-25 07:13] LABS: Calcium 8.4 MG/DL (8.5-10.1); Potassium 4.3 MMOL/L (3.5-5.1)
[2021-11-25 07:22] LABS: Band Neutrophils 1 % (0-10); Lymphocytes 11 % (20-55); Platelet Estimate Adequate; Total Cells Counted 100
[2021-11-25] MEDS: INSULIN REGULAR 100 UNIT/ML SUBCUT SCH ×4 (10:02→21:29)
[2021-11-25] MEDS: cefTRIAXone 1,000 MG in SODIUM CHLORIDE 0.9% 100 ML IV SCH (10:03)
[2021-11-25] MEDS: POLYETHYLENE GLYCOL POWDER 17 GM PACK PO SCH ×2 (10:06→21:34)
[2021-11-25] MEDS: FUROSEMIDE 20 MG/2 ML VIAL IV SCH (10:08)
[2021-11-25] MEDS: MAGNESIUM HYDROXIDE SUSP 30 ML UDCUP PO SCH (10:09)
[2021-11-25] MEDS: LINEZOLID 600 MG TABLET PO SCH ×2 (10:10→21:32)
[2021-11-25] MEDS: DOXAZOSIN 1 MG TABLET PO SCH (10:10)
[2021-11-25] MEDS: NEBIVOLOL 5 MG TABLET PO SCH (10:10)
[2021-11-25] MEDS: MONTELUKAST 10 MG TABLET PO SCH (10:10)
[2021-11-25] MEDS: PANTOPRAZOLE 40 MG TABLET PO SCH ×2 (10:11→21:33)
[2021-11-25] MEDS: GABAPENTIN 300 MG CAPSULE PO SCH ×2 (10:11→21:33)
[2021-11-25] MEDS: predniSONE 20 MG TABLET PO SCH (10:11)
[2021-11-25] MEDS: GLIMEPIRIDE 2 MG TABLET PO SCH (10:11)
[2021-11-25] MEDS: FERROUS SULFATE 325 MG TABLET PO SCH ×2 (10:11→21:34)
[2021-11-25] MEDS: DOCUSATE SODIUM 100 MG CAPSULE PO SCH ×2 (10:12→21:33)
[2021-11-25] MEDS: BENZONATATE 100 MG CAPSULE PO SCH ×3 (10:12→21:33)
[2021-11-25] MEDS: LORATADINE 10 MG TABLET PO SCH (10:12)
[2021-11-25] MEDS: ASPIRIN EC 81 MG TABLET PO SCH (10:12)
[2021-11-25] MEDS: NEOMYCIN/POLYMYXIN/HC OTIC SOLN 10 ML BOTTLE LEFT EAR SCH ×3 (10:19→21:34)
[2021-11-25] MEDS: ACETAMINOPHEN 325 MG TABLET PO PRN (17:38)
[2021-11-25] MEDS: SIMETHICONE CHEW 125 MG TABLET PO PRN (17:39)
[2021-11-25] MEDS: QUEtiapine 25 MG TABLET PO SCH (21:34)
[2021-11-25] MEDS: PRAMIPEXOLE 0.25 MG TABLET PO SCH (21:34)
[2021-11-26] MEDS: ALBUTEROL/IPRATROPIUM 3 ML NEB RESP TX SCH ×4 (01:02→19:00)
[2021-11-26 06:28] LABS: Basophils % 0.1 % (0.0-0.8); Eosinophils % 0.2 % (0.00-10.9); Hematocrit 28.9 VOL% (35.7-47.0); Hemoglobin 8.7 GM/DL (12.0-16.0); Immature Granulocytes % 1.9 %; Immature Granulocytes Absolute 0.19 #; Lymphocytes # 0.8 10*3/uL (1.4-4.0); Lymphocytes % 7.6 % (21.3-54.2); Mean Corpuscular HGB Conc 30.1 GM/DL (32-36); Mean Corpuscular Volume 99.7 FL (87-102); Monocytes # 0.5 10*3/uL (0.11-0.8); Monocytes % 4.7 % (1.7-12.7); Neutrophils % 85.5 % (38.7-73.9); Platelet Count 153 T/CUMM (130-400); Red Cell Distribution Width 14.5 % (9.3-17.3); White Blood Count 9.8 T/CUMM (4-12)
[2021-11-26 06:35] LABS: Calcium 7.9 MG/DL (8.5-10.1); Osmolality,Calculated 301.8 MOS/KG (273-304); Potassium 4.4 MMOL/L (3.5-5.1)
[2021-11-26] MEDS: ARFORMOTEROL 15 MCG/2 ML NEB RESP TX SCH ×2 (07:33→19:00)
[2021-11-26] MEDS: BUDESONIDE 0.5 MG/2 ML NEB RESP TX SCH ×2 (07:33→19:00)
[2021-11-26] MEDS: MAGNESIUM HYDROXIDE SUSP 30 ML UDCUP PO SCH (10:15)
[2021-11-26] MEDS: cefTRIAXone 1,000 MG in SODIUM CHLORIDE 0.9% 100 ML IV SCH (10:15)
[2021-11-26] MEDS: FUROSEMIDE 20 MG/2 ML VIAL IV SCH (10:16)
[2021-11-26] MEDS: POLYETHYLENE GLYCOL POWDER 17 GM PACK PO SCH ×2 (10:16→22:09)
[2021-11-26] MEDS: PANTOPRAZOLE 40 MG TABLET PO SCH ×2 (10:16→22:08)
[2021-11-26] MEDS: NEBIVOLOL 5 MG TABLET PO SCH (10:16)
[2021-11-26] MEDS: LORATADINE 10 MG TABLET PO SCH (10:17)
[2021-11-26] MEDS: ASPIRIN EC 81 MG TABLET PO SCH (10:17)
[2021-11-26] MEDS: DOXAZOSIN 1 MG TABLET PO SCH (10:17)
[2021-11-26] MEDS: MONTELUKAST 10 MG TABLET PO SCH (10:17)
[2021-11-26] MEDS: BENZONATATE 100 MG CAPSULE PO SCH ×3 (10:18→22:07)
[2021-11-26] MEDS: GLIMEPIRIDE 2 MG TABLET PO SCH (10:18)
[2021-11-26] MEDS: LINEZOLID 600 MG TABLET PO SCH ×2 (10:18→22:08)
[2021-11-26] MEDS: DOCUSATE SODIUM 100 MG CAPSULE PO SCH ×2 (10:18→22:08)
[2021-11-26] MEDS: GABAPENTIN 300 MG CAPSULE PO SCH ×2 (10:18→22:07)
[2021-11-26] MEDS: FERROUS SULFATE 325 MG TABLET PO SCH ×2 (10:19→22:08)
[2021-11-26] MEDS: predniSONE 20 MG TABLET PO SCH (10:19)
[2021-11-26] MEDS: INSULIN REGULAR 100 UNIT/ML SUBCUT SCH ×4 (11:05→22:06)
[2021-11-26] MEDS: NEOMYCIN/POLYMYXIN/HC OTIC SOLN 10 ML BOTTLE LEFT EAR SCH ×3 (11:06→22:09)
[2021-11-26] MEDS ORDERED: ALUMINUM/MAGNES/SIMETH MAX STR 30 ML UDCUP PO PRN (15:10)
[2021-11-26] MEDS ORDERED: ALUMINUM/MAGNES/SIMETH MAX STR 30 ML UDCUP PO ONE (16:00)
[2021-11-26] MEDS: PRAMIPEXOLE 0.25 MG TABLET PO SCH (22:07)
[2021-11-26] MEDS: QUEtiapine 25 MG TABLET PO SCH (22:09)
[2021-11-27 06:28] LABS: Calcium 8.2 MG/DL (8.5-10.1); Osmolality,Calculated 295.3 MOS/KG (273-304); Potassium 4.6 MMOL/L (3.5-5.1)
[2021-11-27] MEDS: BUDESONIDE 0.5 MG/2 ML NEB RESP TX SCH ×2 (07:06→19:05)
[2021-11-27] MEDS: ARFORMOTEROL 15 MCG/2 ML NEB RESP TX SCH ×2 (07:06→19:05)
[2021-11-27] MEDS: ALBUTEROL/IPRATROPIUM 3 ML NEB RESP TX SCH ×4 (07:06→19:05)
[2021-11-27] MEDS: INSULIN REGULAR 100 UNIT/ML SUBCUT SCH ×4 (10:36→21:22)
[2021-11-27] MEDS: MAGNESIUM HYDROXIDE SUSP 30 ML UDCUP PO SCH (10:38)
[2021-11-27] MEDS: POLYETHYLENE GLYCOL POWDER 17 GM PACK PO SCH ×2 (10:38→21:22)
[2021-11-27] MEDS: FERROUS SULFATE 325 MG TABLET PO SCH ×2 (10:38→21:21)
[2021-11-27] MEDS: cefTRIAXone 1,000 MG in SODIUM CHLORIDE 0.9% 100 ML IV SCH (10:38)
[2021-11-27] MEDS: DOXAZOSIN 1 MG TABLET PO SCH (10:39)
[2021-11-27] MEDS: MONTELUKAST 10 MG TABLET PO SCH (10:40)
[2021-11-27] MEDS: ASPIRIN EC 81 MG TABLET PO SCH (10:40)
[2021-11-27] MEDS: NEBIVOLOL 5 MG TABLET PO SCH (10:41)
[2021-11-27] MEDS: GABAPENTIN 300 MG CAPSULE PO SCH ×2 (10:41→21:21)
[2021-11-27] MEDS: LORATADINE 10 MG TABLET PO SCH (10:42)
[2021-11-27] MEDS: GLIMEPIRIDE 2 MG TABLET PO SCH ×2 (10:42→18:19)
[2021-11-27] MEDS: LINEZOLID 600 MG TABLET PO SCH ×2 (10:42→21:21)
[2021-11-27] MEDS: predniSONE 20 MG TABLET PO SCH (10:42)
[2021-11-27] MEDS: NEOMYCIN/POLYMYXIN/HC OTIC SOLN 10 ML BOTTLE LEFT EAR SCH ×3 (10:42→21:22)
[2021-11-27] MEDS: DOCUSATE SODIUM 100 MG CAPSULE PO SCH ×2 (10:42→21:55)
[2021-11-27] MEDS: PANTOPRAZOLE 40 MG TABLET PO SCH ×2 (10:45→21:21)
[2021-11-27] MEDS: BENZONATATE 100 MG CAPSULE PO SCH ×3 (10:45→21:22)
[2021-11-27] MEDS: FUROSEMIDE 20 MG/2 ML VIAL IV SCH (10:47)
[2021-11-27] MEDS: PRAMIPEXOLE 0.25 MG TABLET PO SCH (21:21)
[2021-11-27] MEDS: QUEtiapine 25 MG TABLET PO SCH (21:21)
[2021-11-28] MEDS: ALBUTEROL/IPRATROPIUM 3 ML NEB RESP TX SCH ×4 (00:15→18:54)
[2021-11-28 06:29] LABS: Calcium 8.4 MG/DL (8.5-10.1); Osmolality,Calculated 292.1 MOS/KG (273-304); Potassium 4.7 MMOL/L (3.5-5.1)
[2021-11-28] MEDS: BUDESONIDE 0.5 MG/2 ML NEB RESP TX SCH ×2 (06:47→18:54)
[2021-11-28] MEDS: ARFORMOTEROL 15 MCG/2 ML NEB RESP TX SCH ×2 (06:47→18:54)
[2021-11-28] MEDS: NEBIVOLOL 5 MG TABLET PO SCH (09:58)
[2021-11-28] MEDS: DOXAZOSIN 1 MG TABLET PO SCH (09:58)
[2021-11-28] MEDS: GLIMEPIRIDE 2 MG TABLET PO SCH ×2 (09:58→16:51)
[2021-11-28] MEDS: INSULIN REGULAR 100 UNIT/ML SUBCUT SCH ×4 (09:58→22:09)
[2021-11-28] MEDS: ASPIRIN EC 81 MG TABLET PO SCH (09:58)
[2021-11-28] MEDS: MAGNESIUM HYDROXIDE SUSP 30 ML UDCUP PO SCH (09:59)
[2021-11-28] MEDS: FUROSEMIDE 20 MG/2 ML VIAL IV SCH (09:59)
[2021-11-28] MEDS: PANTOPRAZOLE 40 MG TABLET PO SCH ×2 (09:59→22:09)
[2021-11-28] MEDS: NEOMYCIN/POLYMYXIN/HC OTIC SOLN 10 ML BOTTLE LEFT EAR SCH ×3 (09:59→21:16)
[2021-11-28] MEDS: FERROUS SULFATE 325 MG TABLET PO SCH ×2 (09:59→21:44)
[2021-11-28] MEDS: LORATADINE 10 MG TABLET PO SCH (09:59)
[2021-11-28] MEDS: GABAPENTIN 300 MG CAPSULE PO SCH ×2 (09:59→21:16)
[2021-11-28] MEDS: predniSONE 20 MG TABLET PO SCH (09:59)
[2021-11-28] MEDS: DOCUSATE SODIUM 100 MG CAPSULE PO SCH ×2 (09:59→20:26)
[2021-11-28] MEDS: POLYETHYLENE GLYCOL POWDER 17 GM PACK PO SCH ×2 (09:59→20:26)
[2021-11-28] MEDS: MONTELUKAST 10 MG TABLET PO SCH (10:00)
[2021-11-28] MEDS: LINEZOLID 600 MG TABLET PO SCH ×2 (10:00→21:16)
[2021-11-28] MEDS: cefTRIAXone 1,000 MG in SODIUM CHLORIDE 0.9% 100 ML IV SCH (10:00)
[2021-11-28] MEDS: BENZONATATE 100 MG CAPSULE PO SCH ×3 (10:00→21:16)
[2021-11-28 20:53] LABS: Basophils % 0.1 % (0.0-0.8); Hematocrit 26.2 VOL% (35.7-47.0); Immature Granulocytes % 1.3 %; Immature Granulocytes Absolute 0.15 #; Lymphocytes # 0.4 10*3/uL (1.4-4.0); Lymphocytes % 3.2 % (21.3-54.2); Mean Corpuscular HGB Conc 30.5 GM/DL (32-36); Mean Corpuscular Volume 99.2 FL (87-102); Mean Platelet Volume 9.9 FL (9.6-12.0); Monocytes # 0.3 10*3/uL (0.11-0.8); Monocytes % 2.7 % (1.7-12.7); Neutrophils % 92.7 % (38.7-73.9); Platelet Count 121 T/CUMM (130-400); Red Blood Count 2.64 MC/CUMM (3.8-5.5); Red Cell Distribution Width 14.6 % (9.3-17.3); White Blood Count 11.9 T/CUMM (4-12)
[2021-11-28] MEDS: QUEtiapine 25 MG TABLET PO SCH (21:16)
[2021-11-28] MEDS: PRAMIPEXOLE 0.25 MG TABLET PO SCH (21:16)
[2021-11-28 21:36] LABS: Lymphocytes 3 % (20-55); Total Cells Counted 100
[2021-11-28 21:37] LABS: Hypochromia Slight; Macrocytosis Slight; Platelet Estimate Adequate
[2021-11-29] MEDS: ALBUTEROL/IPRATROPIUM 3 ML NEB RESP TX SCH ×4 (00:49→19:02)
[2021-11-29 06:17] LABS: Eosinophils % 0.3 % (0.00-10.9); Hematocrit 25.9 VOL% (35.7-47.0); Hemoglobin 7.9 GM/DL (12.0-16.0); Immature Granulocytes % 0.9 %; Immature Granulocytes Absolute 0.07 #; Lymphocytes # 0.7 10*3/uL (1.4-4.0); Lymphocytes % 9.3 % (21.3-54.2); Mean Corpuscular HGB Conc 30.5 GM/DL (32-36); Mean Corpuscular Volume 99.6 FL (87-102); Mean Platelet Volume 9.8 FL (9.6-12.0); Monocytes # 0.4 10*3/uL (0.11-0.8); Neutrophils % 84.5 % (38.7-73.9); Platelet Count 116 T/CUMM (130-400); Red Cell Distribution Width 14.6 % (9.3-17.3); White Blood Count 7.6 T/CUMM (4-12)
[2021-11-29 06:39] LABS: Calcium 8.4 MG/DL (8.5-10.1); Osmolality,Calculated 292.1 MOS/KG (273-304); Potassium 4.8 MMOL/L (3.5-5.1)
[2021-11-29] MEDS: DEXTROSE 10% 250 ML BAG IV PRN (07:05)
[2021-11-29] MEDS: BUDESONIDE 0.5 MG/2 ML NEB RESP TX SCH ×2 (07:13→19:02)
[2021-11-29] MEDS: ARFORMOTEROL 15 MCG/2 ML NEB RESP TX SCH ×2 (07:13→19:02)
[2021-11-29] MEDS: INSULIN REGULAR 100 UNIT/ML SUBCUT SCH ×4 (08:12→22:42)
[2021-11-29] MEDS: GLIMEPIRIDE 2 MG TABLET PO SCH ×2 (08:12→17:23)
[2021-11-29] MEDS: ASPIRIN EC 81 MG TABLET PO SCH (08:13)
[2021-11-29] MEDS: DOCUSATE SODIUM 100 MG CAPSULE PO SCH ×2 (08:13→22:39)
[2021-11-29] MEDS: LORATADINE 10 MG TABLET PO SCH (08:13)
[2021-11-29] MEDS: NEBIVOLOL 5 MG TABLET PO SCH (08:13)
[2021-11-29] MEDS: NEOMYCIN/POLYMYXIN/HC OTIC SOLN 10 ML BOTTLE LEFT EAR SCH ×3 (08:13→22:36)
[2021-11-29] MEDS: DOXAZOSIN 1 MG TABLET PO SCH (08:13)
[2021-11-29] MEDS: FERROUS SULFATE 325 MG TABLET PO SCH ×2 (08:14→22:41)
[2021-11-29] MEDS: MAGNESIUM HYDROXIDE SUSP 30 ML UDCUP PO SCH (08:14)
[2021-11-29] MEDS: GABAPENTIN 300 MG CAPSULE PO SCH ×2 (08:14→22:40)
[2021-11-29] MEDS: BENZONATATE 100 MG CAPSULE PO SCH ×3 (08:15→22:39)
[2021-11-29] MEDS: predniSONE 20 MG TABLET PO SCH (08:15)
[2021-11-29] MEDS: PANTOPRAZOLE 40 MG TABLET PO SCH ×2 (08:15→22:40)
[2021-11-29] MEDS: MONTELUKAST 10 MG TABLET PO SCH (08:15)
[2021-11-29] MEDS: LINEZOLID 600 MG TABLET PO SCH ×2 (08:15→22:38)
[2021-11-29] MEDS: cefTRIAXone 1,000 MG in SODIUM CHLORIDE 0.9% 100 ML IV SCH (10:12)
[2021-11-29] MEDS: POLYETHYLENE GLYCOL POWDER 17 GM PACK PO SCH ×2 (10:12→22:42)
[2021-11-29] MEDS: FUROSEMIDE 20 MG/2 ML VIAL IV SCH (10:13)
[2021-11-29] MEDS ORDERED: LACTATED RINGERS 1,000 ML IV SCH (12:30)
[2021-11-29] MEDS ORDERED: KETAMINE 500 MG/10 ML VIAL ONE (12:40)
[2021-11-29] MEDS ORDERED: DEXTROSE 50% 25 GM/50 ML SYRINGE IV ONE (12:41)
[2021-11-29] MEDS ORDERED: LIDOCAINE 2% 5 ML VIAL ONE (12:50)
[2021-11-29] MEDS ORDERED: propofoL 200 MG/20 ML VIAL IV ONE (12:50)
[2021-11-29] MEDS ORDERED: ETOMIDATE 20 MG/10 ML VIAL IV ONE (12:50)
[2021-11-29] MEDS: PRAMIPEXOLE 0.25 MG TABLET PO SCH (22:40)
[2021-11-29] MEDS: QUEtiapine 25 MG TABLET PO SCH (22:41)
[2021-11-29] MEDS ORDERED: SODIUM CHLORIDE 0.9% 1,000 ML IV PRN (23:09)
[2021-11-30] MEDS: ALBUTEROL/IPRATROPIUM 3 ML NEB RESP TX SCH ×4 (00:30→19:23)
[2021-11-30] MEDS: DEXTROSE 10% 250 ML BAG IV PRN ×2 (06:14→06:42)
[2021-11-30 06:45] LABS: Calcium 8.3 MG/DL (8.5-10.1); Osmolality,Calculated 288.4 MOS/KG (273-304); Potassium 5.1 MMOL/L (3.5-5.1)
[2021-11-30] MEDS: ARFORMOTEROL 15 MCG/2 ML NEB RESP TX SCH ×2 (07:18→19:18)
[2021-11-30] MEDS: BUDESONIDE 0.5 MG/2 ML NEB RESP TX SCH ×2 (07:18→19:28)
[2021-11-30 08:12] LABS: Basophils % 0.1 % (0.0-0.8); Eosinophils % 0.1 % (0.00-10.9); Hematocrit 28.3 VOL% (35.7-47.0); Hemoglobin 8.7 GM/DL (12.0-16.0); Immature Granulocytes % 1.2 %; Immature Granulocytes Absolute 0.19 #; Lymphocytes # 0.4 10*3/uL (1.4-4.0); Lymphocytes % 2.3 % (21.3-54.2); Mean Corpuscular HGB Conc 30.7 GM/DL (32-36); Mean Corpuscular Volume 98.6 FL (87-102); Monocytes # 0.7 10*3/uL (0.11-0.8); Monocytes % 4.4 % (1.7-12.7); Neutrophils % 91.9 % (38.7-73.9); Red Blood Count 2.87 MC/CUMM (3.8-5.5); Red Cell Distribution Width 14.7 % (9.3-17.3); White Blood Count 15.8 T/CUMM (4-12)
[2021-11-30 08:13] LABS: Platelet Count 115 T/CUMM (130-400)
[2021-11-30 08:30] LABS: Lymphocytes 4 % (20-55); Total Cells Counted 100
[2021-11-30 08:31] LABS: Hypochromia Slight
[2021-11-30] MEDS: INSULIN REGULAR 100 UNIT/ML SUBCUT SCH ×3 (08:31→16:31)
[2021-11-30] MEDS: cefTRIAXone 1,000 MG in SODIUM CHLORIDE 0.9% 100 ML IV SCH (08:50)
[2021-11-30] MEDS: GABAPENTIN 300 MG CAPSULE PO SCH ×2 (08:51→20:44)
[2021-11-30] MEDS: POLYETHYLENE GLYCOL POWDER 17 GM PACK PO SCH ×2 (08:51→20:45)
[2021-11-30] MEDS: MAGNESIUM HYDROXIDE SUSP 30 ML UDCUP PO SCH (08:51)
[2021-11-30] MEDS: GLIMEPIRIDE 2 MG TABLET PO SCH ×3 (08:51→20:42)
[2021-11-30] MEDS: PANTOPRAZOLE 40 MG VIAL IV SCH ×2 (08:52→20:44)
[2021-11-30] MEDS: BENZONATATE 100 MG CAPSULE PO SCH ×3 (08:52→20:44)
[2021-11-30] MEDS: LINEZOLID 600 MG TABLET PO SCH ×2 (08:53→20:43)
[2021-11-30] MEDS: FERROUS SULFATE 325 MG TABLET PO SCH ×2 (08:54→20:43)
[2021-11-30] MEDS: DOCUSATE SODIUM 100 MG CAPSULE PO SCH ×2 (08:54→20:44)
[2021-11-30] MEDS: MONTELUKAST 10 MG TABLET PO SCH (08:54)
[2021-11-30] MEDS: ASPIRIN EC 81 MG TABLET PO SCH (08:54)
[2021-11-30] MEDS: predniSONE 20 MG TABLET PO SCH (08:54)
[2021-11-30] MEDS: NEOMYCIN/POLYMYXIN/HC OTIC SOLN 10 ML BOTTLE LEFT EAR SCH ×3 (08:57→20:45)
[2021-11-30] MEDS: LORATADINE 10 MG TABLET PO SCH (08:58)
[2021-11-30] MEDS: DOXAZOSIN 1 MG TABLET PO SCH (09:00)
[2021-11-30] MEDS: NEBIVOLOL 5 MG TABLET PO SCH (09:00)
[2021-11-30] MEDS ORDERED: FLUCONAZOLE 100 MG TABLET PO SCH (09:00)
[2021-11-30] MEDS: FUROSEMIDE 20 MG/2 ML VIAL IV SCH (09:00)
[2021-11-30] MEDS ORDERED: FUROSEMIDE 20 MG/2 ML VIAL IV ONE ×2 (15:00→17:08)
[2021-11-30 15:23] LABS: Alanine Aminotransferase 24 U/L (13-56); Albumin 2.4 G/DL (3.4-5.0); Alkaline Phosphatase 69 U/L (45-117); Aspartate Amino Transferase 22 U/L (0-37); Bilirubin,Total < 0.39 MG/DL (0.20-1.00); Blood Urea Nitrogen 33 MG/DL (7-18); Calcium 8.5 MG/DL (8.5-10.1); Carbon Dioxide 29 MMOL/L (21-32); Chloride 104 MMOL/L (98-107); Glucose 220 MG/DL (74-106); Osmolality,Calculated 288.7 MOS/KG (273-304); Potassium 5.7 MMOL/L (3.5-5.1); Sodium 138 MMOL/L (136-145)
[2021-11-30] MEDS: ALBUMIN 25% 25 GM/100 ML VIAL IV SCH (16:27)
[2021-11-30] MEDS ORDERED: SODIUM POLYSTYRENE SULFATE 15 GM/60 ML BOTTLE PO STA (17:09)
[2021-11-30] MEDS: FLUCONAZOLE INJ 200 MG/100 ML PREMIX IV SCH (17:56)
[2021-11-30] MEDS: QUEtiapine 25 MG TABLET PO SCH (20:43)
[2021-11-30] MEDS: PRAMIPEXOLE 0.25 MG TABLET PO SCH (20:43)
[2021-11-30] MEDS: SUCRALFATE 1 GM/10 ML UDCUP PO SCH (20:44)
[2021-11-30] MEDS: NYSTATIN 500,000 UNIT/5 ML UDCUP SWISH/SWAL SCH (20:44)
[2021-12-01] MEDS: ALBUTEROL/IPRATROPIUM 3 ML NEB RESP TX SCH ×4 (00:13→18:55)
[2021-12-01] MEDS: ALBUMIN 25% 25 GM/100 ML VIAL IV SCH ×3 (01:01→18:41)
[2021-12-01] MEDS: BUDESONIDE 0.5 MG/2 ML NEB RESP TX SCH ×2 (07:04→18:55)
[2021-12-01] MEDS: ARFORMOTEROL 15 MCG/2 ML NEB RESP TX SCH ×2 (07:04→18:55)
[2021-12-01] MEDS: MAGNESIUM HYDROXIDE SUSP 30 ML UDCUP PO SCH (11:44)
[2021-12-01] MEDS: predniSONE 20 MG TABLET PO SCH (11:45)
[2021-12-01] MEDS: FERROUS SULFATE 325 MG TABLET PO SCH ×2 (11:45→21:28)
[2021-12-01] MEDS: FUROSEMIDE 40 MG/4 ML VIAL IV SCH (11:45)
[2021-12-01] MEDS: DOCUSATE SODIUM 100 MG CAPSULE PO SCH ×2 (11:45→21:29)
[2021-12-01] MEDS: PANTOPRAZOLE 40 MG VIAL IV SCH ×2 (11:45→21:29)
[2021-12-01] MEDS: GLIMEPIRIDE 2 MG TABLET PO SCH ×2 (11:45→16:20)
[2021-12-01] MEDS: NEBIVOLOL 5 MG TABLET PO SCH (11:46)
[2021-12-01] MEDS: NYSTATIN 500,000 UNIT/5 ML UDCUP SWISH/SWAL SCH ×4 (11:46→21:27)
[2021-12-01] MEDS: ASPIRIN EC 81 MG TABLET PO SCH (11:46)
[2021-12-01] MEDS: BENZONATATE 100 MG CAPSULE PO SCH ×3 (11:46→21:29)
[2021-12-01] MEDS: GABAPENTIN 300 MG CAPSULE PO SCH ×2 (11:46→21:28)
[2021-12-01] MEDS: DOXAZOSIN 1 MG TABLET PO SCH (11:46)
[2021-12-01] MEDS: INSULIN REGULAR 100 UNIT/ML SUBCUT SCH ×3 (11:47→16:05)
[2021-12-01] MEDS: SUCRALFATE 1 GM/10 ML UDCUP PO SCH ×4 (11:47→21:27)
[2021-12-01] MEDS: LINEZOLID 600 MG TABLET PO SCH ×2 (11:48→21:27)
[2021-12-01] MEDS: MONTELUKAST 10 MG TABLET PO SCH (11:48)
[2021-12-01] MEDS: POLYETHYLENE GLYCOL POWDER 17 GM PACK PO SCH ×2 (11:49→21:35)
[2021-12-01] MEDS: LORATADINE 10 MG TABLET PO SCH (11:49)
[2021-12-01] MEDS: NEOMYCIN/POLYMYXIN/HC OTIC SOLN 10 ML BOTTLE LEFT EAR SCH ×3 (12:07→21:35)
[2021-12-01] MEDS: ACYCLOVIR INJ 300 MG in SODIUM CHLORIDE 0.9% 100 ML IV SCH (16:30)
[2021-12-01] MEDS: ACETAMINOPHEN 325 MG TABLET PO PRN (16:38)
[2021-12-01 16:41] LABS: Hematocrit 23.9 VOL% (35.7-47.0); Hemoglobin 7.5 GM/DL (12.0-16.0); Immature Granulocytes % 1.9 %; Immature Granulocytes Absolute 0.15 #; Lymphocytes # 0.2 10*3/uL (1.4-4.0); Lymphocytes % 2.9 % (21.3-54.2); Mean Corpuscular HGB Conc 31.4 GM/DL (32-36); Mean Corpuscular Volume 97.6 FL (87-102); Mean Platelet Volume 9.9 FL (9.6-12.0); Monocytes # 0.2 10*3/uL (0.11-0.8); Monocytes % 2.8 % (1.7-12.7); Neutrophils % 92.4 % (38.7-73.9); Platelet Count 84 T/CUMM (130-400); Red Blood Count 2.45 MC/CUMM (3.8-5.5); Red Cell Distribution Width 14.4 % (9.3-17.3); White Blood Count 7.9 T/CUMM (4-12)
[2021-12-01 16:52] LABS: Calcium 8.3 MG/DL (8.5-10.1); Osmolality,Calculated 291.3 MOS/KG (273-304); Potassium 4.3 MMOL/L (3.5-5.1)
[2021-12-01 17:34] LABS: Hypochromia Slight; Lymphocytes 1 % (20-55); Microcytosis Slight; Platelet Estimate Adequate; Total Cells Counted 100
[2021-12-01] MEDS: FLUCONAZOLE INJ 200 MG/100 ML PREMIX IV SCH (17:34)
[2021-12-01] MEDS: PRAMIPEXOLE 0.25 MG TABLET PO SCH (21:27)
[2021-12-01] MEDS: QUEtiapine 25 MG TABLET PO SCH (21:29)
[2021-12-02] MEDS: ALBUTEROL/IPRATROPIUM 3 ML NEB RESP TX SCH ×3 (00:16→15:04)
[2021-12-02] MEDS: ALBUMIN 25% 25 GM/100 ML VIAL IV SCH ×3 (00:37→17:24)
[2021-12-02 06:41] LABS: Basophils % 0.2 % (0.0-0.8); Eosinophils % 0.2 % (0.00-10.9); Hematocrit 23.5 VOL% (35.7-47.0); Hemoglobin 7.4 GM/DL (12.0-16.0); Immature Granulocytes % 1.3 %; Immature Granulocytes Absolute 0.07 #; Lymphocytes # 0.7 10*3/uL (1.4-4.0); Lymphocytes % 13.1 % (21.3-54.2); Mean Corpuscular HGB Conc 31.5 GM/DL (32-36); Mean Corpuscular Volume 98.3 FL (87-102); Mean Platelet Volume 10.1 FL (9.6-12.0); Monocytes # 0.4 10*3/uL (0.11-0.8); Monocytes % 8.1 % (1.7-12.7); Neutrophils % 77.1 % (38.7-73.9); Platelet Count 80 T/CUMM (130-400); Red Blood Count 2.39 MC/CUMM (3.8-5.5); Red Cell Distribution Width 14.3 % (9.3-17.3); White Blood Count 5.2 T/CUMM (4-12)
[2021-12-02 06:53] LABS: Calcium 8.5 MG/DL (8.5-10.1); Potassium 4.1 MMOL/L (3.5-5.1)
[2021-12-02] MEDS: ARFORMOTEROL 15 MCG/2 ML NEB RESP TX SCH (07:40)
[2021-12-02] MEDS: BUDESONIDE 0.5 MG/2 ML NEB RESP TX SCH (07:40)
[2021-12-02] MEDS: SUCRALFATE 1 GM/10 ML UDCUP PO SCH ×3 (07:59→17:19)
[2021-12-02] MEDS: ACYCLOVIR INJ 300 MG in SODIUM CHLORIDE 0.9% 100 ML IV SCH (10:52)
[2021-12-02] MEDS: MAGNESIUM HYDROXIDE SUSP 30 ML UDCUP PO SCH (10:52)
[2021-12-02] MEDS: POLYETHYLENE GLYCOL POWDER 17 GM PACK PO SCH (10:53)
[2021-12-02] MEDS: ASPIRIN EC 81 MG TABLET PO SCH (10:55)
[2021-12-02] MEDS: NYSTATIN 500,000 UNIT/5 ML UDCUP SWISH/SWAL SCH ×3 (10:55→17:19)
[2021-12-02] MEDS: SIMETHICONE CHEW 125 MG TABLET PO PRN (10:55)
[2021-12-02] MEDS: NEBIVOLOL 5 MG TABLET PO SCH (10:55)
[2021-12-02] MEDS: DOXAZOSIN 1 MG TABLET PO SCH (10:55)
[2021-12-02] MEDS: GLIMEPIRIDE 2 MG TABLET PO SCH ×2 (10:56→17:18)
[2021-12-02] MEDS: GABAPENTIN 300 MG CAPSULE PO SCH (10:56)
[2021-12-02] MEDS: LINEZOLID 600 MG TABLET PO SCH (10:56)
[2021-12-02] MEDS: LORATADINE 10 MG TABLET PO SCH (10:56)
[2021-12-02] MEDS: DOCUSATE SODIUM 100 MG CAPSULE PO SCH (10:56)
[2021-12-02] MEDS: FERROUS SULFATE 325 MG TABLET PO SCH (10:56)
[2021-12-02] MEDS: predniSONE 20 MG TABLET PO SCH (10:56)
[2021-12-02] MEDS: MONTELUKAST 10 MG TABLET PO SCH (10:57)
[2021-12-02] MEDS: FUROSEMIDE 40 MG/4 ML VIAL IV SCH (10:57)
[2021-12-02] MEDS: PANTOPRAZOLE 40 MG VIAL IV SCH (10:57)
[2021-12-02] MEDS: BENZONATATE 100 MG CAPSULE PO SCH ×2 (10:57→14:16)
[2021-12-02] MEDS: INSULIN REGULAR 100 UNIT/ML SUBCUT SCH ×3 (10:58→17:18)
[2021-12-02] MEDS: NEOMYCIN/POLYMYXIN/HC OTIC SOLN 10 ML BOTTLE LEFT EAR SCH ×2 (11:19→14:16)
[2021-12-02 16:19] VITALS: BP 150/66
[2021-12-02] MEDS: FLUCONAZOLE INJ 200 MG/100 ML PREMIX IV SCH (19:05)
== END 2021-12-02 19:03 | DRG 177 ==
LOC: N.ED 14:52 → N.EDINP 19:07 → N.5E 19:25
PROVIDERS: ADMIT Internal Medicine; ATTEND Internal Medicine